=== PATIENT | female | born 1950 | race Caucasian/White ===

== ENCOUNTER 2017-09-01 07:11 | Day surgery (SDC) | payer MEDICARE, OTHER ==
[2017-08-30 10:21] VITALS: BMI 32.3
[~2017-09-01 07:11] MED LIST: LACTATED RINGERS 1,000 ML IV SCH; LIDOCAINE 1% 20 ML VIAL (10MG/ML) FOR IV START INTRADERMA PRN
[2017-09-01 07:39] VITALS: RESP 18; TEMP 97.8
[2017-09-01] MEDS ORDERED: LACTATED RINGERS 1,000 ML IV ONE (07:39)
[2017-09-01 07:52] LABS: Glucose,Whole Blood 95 mg/dL (75-99)
[2017-09-01] MEDS ORDERED: PROPOFOL 10 MG/ML 20 ML VIAL IV ONE (08:34)
[2017-09-01 09:15] VITALS: BP 135/90; PULSE 67
--- NOTE | 2017-09-01 09:47 | P.PCN ---
Date of Procedure: 09/01/17 Procedure(s) Performed: BRIEF HISTORY: Patient is a 67-year-old, pleasant, white female, scheduled for an upper endoscopy as a part of value should of intermittent dysphagia to solids for the last several months duration. She is hence scheduled for an upper endoscopy with possible dilation. PROCEDURE PERFORMED: Esophagogastroduodenoscopy with biopsy. PREOPERATIVE DIAGNOSIS: Intermittent dysphagia to solids for several months duration. IV sedation per anesthesia. PROCEDURE: After informed consent was obtained, the patient was brought into the endoscopy unit. IV sedation was administered by Anesthesia under continuous monitoring. Initially the Olympus GIF-140 video endoscope was inserted into the mouth. Esophagus intubated without any difficulty. It was gradually advanced into the stomach and duodenum and carefully examined. The bulb and the second part of the duodenum appeared normal. The scope at this time was withdrawn to the stomach, adequately insufflated with air, and upon careful examination, mucosa of the antrum, body, cardia and the fundus appeared normal. The scope was then withdrawn into the esophagus. The GE junction was located at 39 cm from the incisors. There were no esophageal sphincter was extremely tight and was evidence of esophageal dysmotility suspicious for esophageal achalasia. Also the esophagus appeared slightly dilated with retained liquid. The mucosa of esophagus appeared normal. These were done from the distal esophagus to rule out esophagitis. There were no erosions or ulcerations seen and the patient tolerated the procedure well. IMPRESSION: 1. Tightness of the lower esophageal sphincter and slightly dilated esophagus with "fluid suspicious for esophageal dysmotilityesophageal achalasia. 2.[ No evidence of esophageal stricture RECOMMENDATIONS: The findings of this examination were discussed with the patient as well as a family. she will be scheduled for an esophageal manometry to evaluate further and she'll be seen in the office in 3-4 weeks..
--- NOTE | 2017-09-05 05:33 | CDI ---
Outpatient Documentation Clarification Form Date: 09/05/2017 CDS/Sugar Reprocess Operator Head Name: Dick Gallegos Phone: If any questions, call Belle Boucher Vending Machine Collector at [phone] Patient Name: Ana Jenkins. Admit Date: 09/01/2017 Discharge Date: 09/01/2017 ATTENTION: The [facility] Coding Staff appreciate your assistance in clarifying documentation. Please respond to the clarification below the line at the bottom and electronically sign. The [facility] Coding staff will review the response and follow-up if needed. Please note: Queries are made part of the Legal Health Record. If you have any questions, please contact the Vending Machine Collector. Dear Dr. Al, Operative notes states Egd with biopsy. In the procedure description there is missing documentation for biopsy performed. Pathology report states Esophagus Biopsy. Kindly add the missing documentation. Request to add addendum Thank you for your kind consideration. MTDD
--- NOTE | 2017-09-13 07:07 | CDI ---
Outpatient Documentation Clarification Form Date: 09/13/2017 CDS/Administrative Dietitian Name: Dick Gallegos Phone: If any questions, call Belle Boucher Hydroelectric Station Chief at [phone] Patient Name: Ana Jenkins. Admit Date: 09/01/2017 Discharge Date: 09/01/2017 ATTENTION: The [facility] Coding Staff appreciate your assistance in clarifying documentation. Please respond to the clarification below the line at the bottom and electronically sign. The [facility] Coding staff will review the response and follow-up if needed. Please note: Queries are made part of the Legal Health Record. If you have any questions, please contact the Hydroelectric Station Chief. Dear Dr. Al, Operative notes states Egd with biopsy. In the procedure description there is missing documentation for biopsy performed. Pathology report states Esophagus Biopsy. Kindly add the missing documentation. Request to add addendum Thank you for your kind consideration. MTDD
--- NOTE | 2017-09-14 10:26 | CDI ---
Outpatient Documentation Clarification Form Date: 09/14/2017 CDS/Smudger Name: Dick Gallegos Phone: If any questions, call Belle Boucher Drapery Examiner at [phone] Patient Name: Ana Jenkins. Admit Date: 09/01/2017 Discharge Date: 09/01/2017 ATTENTION: The [facility] Coding Staff appreciate your assistance in clarifying documentation. Please respond to the clarification below the line at the bottom and electronically sign. The [facility] Coding staff will review the response and follow-up if needed. Please note: Queries are made part of the Legal Health Record. If you have any questions, please contact the Drapery Examiner. Dear Dr. Al, Your Operative note states Egd with biopsy. However, the procedure description does not include that a biopsy was performed. Kindly add the description of how the biopsy was performed in an addendum to Op Note. Thank you for your kind consideration. MTDD
== END 2017-09-01 09:59 | disposition home or self-care (01) ==
LOC: ORWHC2ENDO 07:11
PROVIDERS: ATTEND Internal Medicine Gastroenterology
DX: K22.4 Dyskinesia of esophagus (principal); I10 Essential (primary) hypertension; E27.1 Primary adrenocortical insufficiency; E11.9 Type 2 diabetes mellitus without complications; Z88.0 Allergy status to penicillin; Z88.1 Allergy status to other antibiotic agents; Z91.048 Other nonmedicinal substance allergy status; Z79.1 Long term (current) use of non-steroidal anti-inflammatories (NSAID); Z79.899 Other long term (current) drug therapy; K22.8 Other specified diseases of esophagus
CPT/HCPCS: 88305; 43239; J2704

== ENCOUNTER → 2017-09-13 | Day surgery (SDC) | payer MEDICARE, OTHER ==
[2017-09-11 14:25] VITALS: BMI 32.3
[2017-09-13 15:09] VITALS: BP 146/64; PULSE 62; RESP 16; TEMP 98.7
--- NOTE | 2017-09-27 14:00 | PCN ---
PROCEDURE NOTE DATE OF PROCEDURE: 09/13/2017 PROCEDURE PERFORMED: Esophageal manometry. PREOPERATIVE DIAGNOSIS: Intermittent dysphagia to solids and passive regurgitation of several years duration. Questionable history of a relative dysmotility, diagnosed many years ago. BRIEF HISTORY: Patient is a 67-year-old pleasant white female, scheduled for esophageal manometry as a part of evaluation of intermittent dysphagia to solids for the last several years' duration. She lately has been complaining of severe passive regurgitation and dysphagia to liquids as well as solids and occasionally to saliva also. She recently had an upper endoscopy done on August of 2017, which revealed slightly dilated esophagus with retained liquid and tight lower esophageal sphincter suspicious for esophageal achalasia. She is hence scheduled for an esophageal manometry to evaluate further. PROCEDURE PERFORMED: A resolution impedance esophageal manometry. PROCEDURE: After informed consent was obtained from the patient, she was brought into the endoscopy unit when esophageal manometry catheter was passed through the sternal ostium and was gently advanced into the esophagus and stomach and the study was performed. The following are the results using Castor classification: 1. Integral residual pressure (IRP) 42 mmHg, mean residual pressure 26 mmHg. 2. Lower esophageal body, mean DCI 885 mmHg. Peristalsis 0%, bolus transit 0%. There was evidence isometric contractions noted during all swallows throughout the study. 3. Upper esophageal sphincter, was not assessed. INTERPRETATION: The above esophageal manometry study shows increased mean integral residual pressure with evidence of aperistalsis, all of which are consistent with esophageal achalasia. Also, there is evidence of isometric contractions noted for almost every swallow during the entire study. 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 MMODL / IJN: [id number] /
== END ==
LOC: ORWHC2ENDO 14:49
PROVIDERS: ATTEND Internal Medicine Gastroenterology
DX: K22.0 Achalasia of cardia (principal)
CPT/HCPCS: 91010

== ENCOUNTER 2017-11-15 03:31 | Inpatient (IN) | payer MEDICARE, OTHER ==
[2017-11-15 03:50] LABS: Glucose,Whole Blood 167 mg/dL (75-99)
[2017-11-15] MEDS ORDERED: MORPHINE SULFATE 4 MG/ML SYRINGE IV STA (03:58)
[2017-11-15] MEDS ORDERED: SODIUM CHLORIDE 0.9% 500 ML IV STA (03:58)
--- NOTE | 2017-11-15 04:03 | ED ---
Nausea/Vomiting/Diarrhea HPI - General Chief complaint: Nausea/Vomiting/Diarrhea Stated complaint: abd pain Time Seen by Provider: 11/15/17 03:37 Source: patient, EMS Mode of arrival: EMS Limitations: physical limitation - History of Present Illness Initial comments: This patient is a 67-year-old woman who presents with diffuse abdominal pain as well as nausea and vomiting. She states that the first symptoms start was the nausea and vomiting which came on around 9 PM. At the time she was just sitting and watching television. When the symptoms continued this morning she decided to be evaluated. MD complaint: nausea, vomiting, abdominal pain Onset/Timin -: hour(s) Description of Vomiting: food contents, bilious Associated Abdominal Pain: Yes Location: diffuse Radiation: other (back) Severity: severe Quality: aching Consistency: constant Improves with: none Worsens with: none Associated Symptoms: denies other symptoms - Related Data Home Medications Medication Instructions Recorded Confirmed Cholecalciferol [Vitamin D3] 1,000 unit PO DAILY 08/30/17 09/11/17 Cortisone Acetate [Cortone] 12.5 mg PO HS 08/30/17 09/11/17 Cortisone Acetate [Cortone] 25 mg PO BID 08/30/17 09/11/17 Dicyclomine [Bentyl] 10 mg PO DAILY PRN 08/30/17 09/13/17 Diphenox-Atrop 2.5-0.025 mg 3 each PO QID PRN 08/30/17 09/13/17 [Lomotil] Fexofenadine HCl 60 mg PO DAILY 08/30/17 09/11/17 Fludrocortisone [Florinef] 0.1 mg PO DAILY 08/30/17 09/11/17 Fluticasone Propionate [Flovent 2 puff INHALATION DAILY PRN 08/30/17 09/13/17 Hfa 110mcg] Levothyroxine Sodium [Levoxyl] 200 mcg PO DAILY 08/30/17 09/11/17 Meloxicam [Mobic] 7.5 mg PO DAILY 08/30/17 09/11/17 Metoprolol Tartrate [Lopressor] 100 mg PO DAILY 08/30/17 09/11/17 Prasterone (Dhea) [Dhea 25] 25 mg PO WE 08/30/17 09/11/17 Solumedrol 40 mg INJ DAILY PRN 08/30/17 09/13/17 Trimethobenzamide [Tigan] 300 mg PO DAILY PRN 08/30/17 09/13/17 tiZANidine HCL 2 mg PO HS 08/30/17 09/11/17 traZODone HCL [TraZODone HCl] 50 g PO HS 08/30/17 09/11/17 Allergies Allergy/AdvReac Type Severity Reaction Status Date / Time Penicillins Allergy Anaphylaxis Verified 09/13/17 14:59 adhesive tape AdvReac Rash/Hives Verified 09/13/17 14:59 cephalexin [From Keflex] AdvReac Nausea & Verified 09/13/17 14:59 Vomiting erythromycin base AdvReac Nausea & Verified 09/13/17 14:59 Vomiting Tetracyclines AdvReac Nausea & Verified 09/13/17 14:59 Vomiting Review of Systems ROS Statement: Those systems with pertinent positive or pertinent negative responses have been documented in the HPI. ROS Other: All systems not noted in ROS Statement are negative. Constitutional: Denies: fever, chills Respiratory: Denies: cough, dyspnea Cardiovascular: Denies: chest pain, palpitations, edema Gastrointestinal: Reports: abdominal pain, nausea, vomiting. Denies: hematemesis, melena, hematochezia Genitourinary: Denies: dysuria, hematuria Musculoskeletal: Reports: back pain Skin: Denies: rash Neurological: Denies: headache, weakness, numbness Past Medical History Past Medical History: Cancer, Diabetes Mellitus, Hypertension, Thyroid Disorder Additional Past Medical History / Comment(s): NE'S DISEASE. SKIN CANCER History of Any Multi-Drug Resistant Organisms: None Reported Past Surgical History: Adenoidectomy, Back Surgery, Cholecystectomy, Hysterectomy, Joint Replacement, Tonsillectomy Additional Past Surgical History / Comment(s): LT TOTAL KNEE. SCREWS IN BOTH FEET. BACK SURGERY X 2. COLONOSCOPY, EGD. BILAT CATARACT SX Past Anesthesia/Blood Transfusion Reactions: Previous Problems w/ Anesthesia, Motion Sickness Additional Past Anesthesia/Blood Transfusion Reaction / Comment(s): "FELT LIKE i WAS CLIMBING [place] AFTER ANESTHESIA IN [place]" Past Psychological History: Anxiety, Depression Smoking Status: Never smoker Past Alcohol Use History: None Reported Past Drug Use History: None Reported - Past Family History Mother Family Medical History: No Reported History General Exam Limitations: physical limitation General appearance: alert, obese Head exam: Present: atraumatic, normocephalic Eye exam: Present: normal appearance. Absent: scleral icterus, conjunctival injection ENT exam: Present: mucous membranes dry Respiratory exam: Present: normal lung sounds bilaterally. Absent: respiratory distress, wheezes, rales, rhonchi, stridor Cardiovascular Exam: Present: regular rate, normal rhythm, normal heart sounds. Absent: systolic murmur, diastolic murmur, rubs, gallop GI/Abdominal exam: Present: soft, tenderness (Diffuse). Absent: distended, guarding, rebound, rigid, mass, pulsatile mass Extremities exam: Present: normal inspection, normal capillary refill. Absent: pedal edema, calf tenderness Back exam: Absent: CVA tenderness (R), CVA tenderness (L) Skin exam: Present: warm, dry, intact, normal color. Absent: rash Course Vital Signs 11/15/17 11/15/17 11/15/17 03:43 04:09 05:43 Temperature 98.3 F Pulse Rate 67 73 78 Respiratory 17 16 Rate Blood Pressure 145/105 173/77 146/79 O2 Sat by Pulse 100 95 Oximetry Medical Decision Making - Medical Decision Making Case discussed with Dr. Vallejo the surgeon on-call who states she will come and see the patient. Her other treatment recommendations incorporated. - Lab Data Result diagrams: 11/15/17 03:40 11/15/17 03:40 Lab Results 11/15/17 11/15/17 11/15/17 Range/Units 03:36 03:40 03:40 WBC 24.0 H (3.8-10.6) k/uL RBC 6.08 H (3.80-5.40) m/uL Hgb 18.2 H (11.4-16.0) gm/dL Hct 56.5 H (34.0-46.0) % MCV 93.0 (80.0-100.0) fL MCH 29.9 (25.0-35.0) pg MCHC 32.2 (31.0-37.0) g/dL RDW 14.3 (11.5-15.5) % Plt Count 330 (150-450) k/uL Neutrophils % 90 % Lymphocytes % 6 % Monocytes % 3 % Eosinophils % 1 % Basophils % 0 % Neutrophils # 21.6 H (1.3-7.7) k/uL Lymphocytes # 1.4 (1.0-4.8) k/uL Monocytes # 0.7 (0-1.0) k/uL Eosinophils # 0.2 (0-0.7) k/uL Basophils # 0.0 (0-0.2) k/uL Manual Slide Review Performed Large Platelets Present Sodium 139 (137-145) mmol/L Potassium 5.2 H (3.5-5.1) mmol/L Chloride 105 (98-107) mmol/L Carbon Dioxide 24 (22-30) mmol/L Anion Gap 10 mmol/L BUN 15 (7-17) mg/dL Creatinine 0.70 (0.52-1.04) mg/dL Est GFR (CKD-EPI)AfAm >90 (>60 ml/min/1.73 sqM) Est GFR (CKD-EPI)NonAf 89 (>60 ml/min/1.73 sqM) Glucose 206 H (74-99) mg/dL POC Glucose (mg/dL) 167 H (75-99) mg/dL POC Glu Dairy Farmer ID Jasmyn Ponce Plasma Lactic Acid [place] (0.7-2.0) mmol/L Calcium 10.1 (8.4-10.2) mg/dL Total Bilirubin 1.0 (0.2-1.3) mg/dL AST 25 (14-36) U/L ALT 22 (9-52) U/L Alkaline Phosphatase 77 (38-126) U/L Total Protein 6.7 (6.3-8.2) g/dL Albumin 4.2 (3.5-5.0) g/dL Amylase 58 (30-110) U/L Lipase 41 (23-300) U/L Urine Color Urine Appearance (Clear) Urine pH (5.0-8.0) Ur Specific [place] (1.001-1.035) Urine Protein (Negative) Urine Glucose (UA) (Negative) Urine Ketones (Negative) Urine Blood (Negative) Urine Nitrite (Negative) Urine Bilirubin (Negative) Urine Urobilinogen (<2.0) mg/dL Ur Leukocyte Esterase (Negative) Urine RBC (0-5) /hpf Urine WBC (0-5) /hpf Ur Squamous Epith Cells (0-4) /hpf Urine Bacteria (None) /hpf Hyaline Casts (0-2) /lpf Urine Mucus (None) /hpf 11/15/17 11/15/17 Range/Units 03:40 05:41 WBC (3.8-10.6) k/uL RBC (3.80-5.40) m/uL Hgb (11.4-16.0) gm/dL Hct (34.0-46.0) % MCV (80.0-100.0) fL MCH (25.0-35.0) pg MCHC (31.0-37.0) g/dL RDW (11.5-15.5) % Plt Count (150-450) k/uL Neutrophils % % Lymphocytes % % Monocytes % % Eosinophils % % Basophils % % Neutrophils # (1.3-7.7) k/uL Lymphocytes # (1.0-4.8) k/uL Monocytes # (0-1.0) k/uL Eosinophils # (0-0.7) k/uL Basophils # (0-0.2) k/uL Manual Slide Review Large Platelets Sodium (137-145) mmol/L Potassium (3.5-5.1) mmol/L Chloride (98-107) mmol/L Carbon Dioxide (22-30) mmol/L Anion Gap mmol/L BUN (7-17) mg/dL Creatinine (0.52-1.04) mg/dL Est GFR (CKD-EPI)AfAm (>60 ml/min/1.73 sqM) Est GFR (CKD-EPI)NonAf (>60 ml/min/1.73 sqM) Glucose (74-99) mg/dL POC Glucose (mg/dL) (75-99) mg/dL POC Glu Dairy Farmer ID Plasma Lactic Acid [place] 3.5 H* (0.7-2.0) mmol/L Calcium (8.4-10.2) mg/dL Total Bilirubin (0.2-1.3) mg/dL AST (14-36) U/L ALT (9-52) U/L Alkaline Phosphatase (38-126) U/L Total Protein (6.3-8.2) g/dL Albumin (3.5-5.0) g/dL Amylase (30-110) U/L Lipase (23-300) U/L Urine Color Yellow Urine Appearance Cloudy H (Clear) Urine pH 5.0 (5.0-8.0) Ur Specific [place] 1.017 (1.001-1.035) Urine Protein Trace H (Negative) Urine Glucose (UA) Negative (Negative) Urine Ketones 1+ H (Negative) Urine Blood Trace H (Negative) Urine Nitrite Negative (Negative) Urine Bilirubin Negative (Negative) Urine Urobilinogen <2.0 (<2.0) mg/dL Ur Leukocyte Esterase Large H (Negative) Urine RBC 2 (0-5) /hpf Urine WBC 19 H (0-5) /hpf Ur Squamous Epith Cells 4 (0-4) /hpf Urine Bacteria Rare H (None) /hpf Hyaline Casts 13 H (0-2) /lpf Urine Mucus Moderate H (None) /hpf - EKG Data -: EKG Interpreted by Me EKG shows normal: sinus rhythm, axis (Normal), intervals (Normal), QRS complexes (Normal), ST-T waves (Normal) Rate: normal (Rate 94 bpm) Interpretation: other (Possible old inferior infarct.) Disposition Clinical Impression: Abdominal pain, Volvulus Disposition: ADMITTED IP TO THIS [facility] Condition: Serious Referrals: Nonstaff,Physician [Primary Care Provider] - 1-2 days
[2017-11-15] MEDS: ONDANSETRON 4 MG/2 ML VIAL IVP STA ×2 (04:08→07:49)
[2017-11-15 04:54] LABS: Basophils % (A) 0 %; Eosinophils # (A) 0.2 k/uL (0-0.7); Eosinophils % (A) 1 %; HGB 18.2 gm/dL (11.4-16.0); Lymphocytes # (A) 1.4 k/uL (1.0-4.8); Lymphocytes % (A) 6 %; MCH 29.9 pg (25.0-35.0); MCHC 32.2 g/dL (31.0-37.0); Mean Platelet Volume 10.1; Monocytes # (A) 0.7 k/uL (0-1.0); Monocytes % (A) 3 %; Neutrophils # (A) 21.6 k/uL (1.3-7.7); Neutrophils % (A) 90 %; Platelet Count 330 k/uL (150-450); RBC 6.08 m/uL (3.80-5.40); RDW 14.3 % (11.5-15.5)
[2017-11-15 04:58] LABS: HCT 56.5 % (34.0-46.0)
[2017-11-15 05:03] LABS: Albumin 4.2 g/dL (3.5-5.0); Amylase 58 U/L (30-110); Anion Gap 10 mmol/L; Calcium 10.1 mg/dL (8.4-10.2); Carbon Dioxide 24 mmol/L (22-30); Chloride 105 mmol/L (98-107); Glucose 206 mg/dL (74-99); Lipase 41 U/L (23-300); Sodium 139 mmol/L (137-145); Total Protein 6.7 g/dL (6.3-8.2)
[2017-11-15 05:11] LABS: ALT 22 U/L (9-52); AST 25 U/L (14-36); Alkaline Phosphatase 77 U/L (38-126); Blood Urea Nitrogen 15 mg/dL (7-17); Potassium 5.2 mmol/L (3.5-5.1)
[2017-11-15 05:14] LABS: Large Platelets Present
--- NOTE | 2017-11-15 05:47 | CT ---
EXAM: CT Abdomen and Pelvis Without Intravenous Contrast CLINICAL HISTORY: ITS.REASON CT Reason: Pain TECHNIQUE: Axial computed tomography images of the abdomen and pelvis without intravenous contrast. DLP is 1202.9 mGy-cm. This CT exam was performed using one or more of the following dose reduction techniques: automated exposure control, adjustment of the mA and/or kV according to patient size, and/or use of iterative reconstruction technique. COMPARISON: No relevant prior studies available. FINDINGS: There are findings compatible with closed loop small bowel obstruction. There is a radial ray of small bowel loops in the mid to lower abdomen and pelvis with mesenteric vessels converging into central point. Example image 37/6. There is free fluid along and mesenteric/interloop edema. Cardiomegaly. Suspected atelectasis at lung bases. Small hiatal hernia. There is some fluid in the esophagus may represent reflux. Cholecystectomy. Diverticulosis. Allowing for free fluid, no definite diverticulitis. Visualized appendix unremarkable. Free fluid herniates out inguinal regions. Osseous degenerative changes. Postop changes spine. IMPRESSION: There are findings compatible with closed loop small bowel obstruction. There is a radial ray of small bowel loops in the mid to lower abdomen and pelvis with mesenteric vessels converging into central point. Example image 37/6. There is free fluid along and mesenteric/interloop edema. Emergent surgical consultation recommended. Incidental findings, as discussed above. Critical Value Communications 11/15/17 05:40 Call Doctor Regarding Above results, called on 11/15 05:40 (-04:00)
[2017-11-15] MEDS ORDERED: ONDANSETRON 4 MG/2 ML VIAL IVP STA (05:49)
[2017-11-15 06:00] LABS: Appearance,Urine Cloudy (Clear); Bacteria,Urine Rare /hpf; Bilirubin,Urine Negative (Negative); Blood,Urine Trace (Negative); Color,Urine Yellow; Glucose,Urine (UA) Negative (Negative); Hyaline Casts,Urine 13 /lpf (0-2); Ketones,Urine 1+ (Negative); Leukocyte Esterase,Urine Large (Negative); Mucus,Urine Moderate /hpf; Nitrite,Urine Negative (Negative); Protein,Urine Trace (Negative); RBC,Urine 2 /hpf (0-5); Specific Gravity,Urine 1.017 (1.001-1.035); Squamous Epithelial Cell,Urine 4 /hpf (0-4); Urobilinogen,Urine <2.0 mg/dL (<2.0); WBC,Urine 19 /hpf (0-5)
[2017-11-15] MEDS ORDERED: SODIUM CHLORIDE 0.9% 2,500 ML IV ONE (06:10)
[2017-11-15] MEDS ORDERED: LEVOFLOXACIN 750MG-D5W PMX 750 MG in DEXTROSE/WATER 1 150ML.BAG IVPB STA (06:10)
--- NOTE | 2017-11-15 06:53 | P.GSHP ---
History of Present Illness H&P Date: 11/15/17 Chief Complaint: Abdominal pain, nausea and vomiting The patient is a 67 year old female who began having pain about 9:00 yesterday evening. She had had some diarrhea earlier in the day and took Imodium. She's had problems with diarrhea intermittently in the past and has seen Dr. Al for this. The pain persisted all night and she was having nausea and vomiting so came into the emergency department. Computed tomography scan shows a small bowel volvulus. She has had previous abdominal surgeries. She's never had bowel obstruction in the past. - Review of Systems All systems: negative - Genitourinary (Female) Comment: Treated for urinary tract infection, started antibiotics last Past Medical History Past Medical History: Cancer, Diabetes Mellitus, Hypertension, Thyroid Disorder Additional Past Medical History / Comment(s): NE'S DISEASE. Valvular heart disease. SKIN CANCER History of Any Multi-Drug Resistant Organisms: None Reported Past Surgical History: Adenoidectomy, Back Surgery, Cholecystectomy, Hysterectomy, Joint Replacement, Tonsillectomy Additional Past Surgical History / Comment(s): LT TOTAL KNEE. SCREWS IN BOTH FEET. BACK SURGERY X 2. COLONOSCOPY, EGD. BILAT CATARACT SX Past Anesthesia/Blood Transfusion Reactions: Previous Problems w/ Anesthesia, Motion Sickness Additional Past Anesthesia/Blood Transfusion Reaction / Comment(s): "FELT LIKE i WAS CLIMBING [place] AFTER ANESTHESIA IN [place]" Past Psychological History: Anxiety, Depression Smoking Status: Never smoker Past Alcohol Use History: None Reported Past Drug Use History: None Reported - Past Family History Mother Family Medical History: No Reported History Medications and Allergies Home Medications Medication Instructions Recorded Confirmed Type Cholecalciferol [Vitamin D3] 1,000 unit PO DAILY 08/30/17 09/11/17 History Cortisone Acetate [Cortone] 12.5 mg PO HS 08/30/17 09/11/17 History Cortisone Acetate [Cortone] 25 mg PO BID 08/30/17 09/11/17 History Dicyclomine [Bentyl] 10 mg PO DAILY PRN 08/30/17 09/13/17 History Diphenox-Atrop 2.5-0.025 mg 3 each PO QID PRN 08/30/17 09/13/17 History [Lomotil] Fexofenadine HCl 60 mg PO DAILY 08/30/17 09/11/17 History Fludrocortisone [Florinef] 0.1 mg PO DAILY 08/30/17 09/11/17 History Fluticasone Propionate [Flovent 2 puff INHALATION DAILY PRN 08/30/17 09/13/17 History Hfa 110mcg] Levothyroxine Sodium [Levoxyl] 200 mcg PO DAILY 08/30/17 09/11/17 History Meloxicam [Mobic] 7.5 mg PO DAILY 08/30/17 09/11/17 History Metoprolol Tartrate [Lopressor] 100 mg PO DAILY 08/30/17 09/11/17 History Prasterone (Dhea) [Dhea 25] 25 mg PO WE 08/30/17 09/11/17 History Solumedrol 40 mg INJ DAILY PRN 08/30/17 09/13/17 History Trimethobenzamide [Tigan] 300 mg PO DAILY PRN 08/30/17 09/13/17 History tiZANidine HCL 2 mg PO HS 08/30/17 09/11/17 History traZODone HCL [TraZODone HCl] 50 g PO HS 08/30/17 09/11/17 History Allergies Allergy/AdvReac Type Severity Reaction Status Date / Time Penicillins Allergy Anaphylaxis Verified 09/13/17 14:59 adhesive tape AdvReac Rash/Hives Verified 09/13/17 14:59 cephalexin [From Keflex] AdvReac Nausea & Verified 09/13/17 14:59 Vomiting erythromycin base AdvReac Nausea & Verified 09/13/17 14:59 Vomiting Tetracyclines AdvReac Nausea & Verified 09/13/17 14:59 Vomiting Surgical - Exam Osteopathic Statement: *. No significant issues noted on an osteopathic structural exam other than those noted in the History and Physical/Consult. Vital Signs Temp Pulse Resp BP Pulse Ox 98.3 F 67 17 145/105 100 11/15/17 03:43 11/15/17 03:43 11/15/17 03:43 11/15/17 03:43 11/15/17 03:43 - General well developed, well nourished, no distress - Eyes normal ocular movement - ENT normal mucosa - Neck trachea midline - Respiratory normal expansion, normal respiratory effort, clear to auscultation - Cardiovascular Rhythm: regular - Abdomen Abdomen: soft, tender (Diffuse tenderness), bowel sounds (Hypoactive) Results - Labs 11/15/17 03:40 11/15/17 03:40 Abnormal Lab Results - Last 24 Hours (Table) 11/15/17 11/15/17 11/15/17 Range/Units 03:36 03:40 03:40 WBC 24.0 H (3.8-10.6) k/uL RBC 6.08 H (3.80-5.40) m/uL Hgb 18.2 H (11.4-16.0) gm/dL Hct 56.5 H (34.0-46.0) % Neutrophils # 21.6 H (1.3-7.7) k/uL Potassium 5.2 H (3.5-5.1) mmol/L Glucose 206 H (74-99) mg/dL POC Glucose (mg/dL) 167 H (75-99) mg/dL Plasma Lactic Acid Homer (0.7-2.0) mmol/L Urine Appearance (Clear) Urine Protein (Negative) Urine Ketones (Negative) Urine Blood (Negative) Ur Leukocyte Esterase (Negative) Urine WBC (0-5) /hpf Urine Bacteria (None) /hpf Hyaline Casts (0-2) /lpf Urine Mucus (None) /hpf 11/15/17 11/15/17 Range/Units 03:40 05:41 WBC (3.8-10.6) k/uL RBC (3.80-5.40) m/uL Hgb (11.4-16.0) gm/dL Hct (34.0-46.0) % Neutrophils # (1.3-7.7) k/uL Potassium (3.5-5.1) mmol/L Glucose (74-99) mg/dL POC Glucose (mg/dL) (75-99) mg/dL Plasma Lactic Acid Homer 3.5 H* (0.7-2.0) mmol/L Urine Appearance Cloudy H (Clear) Urine Protein Trace H (Negative) Urine Ketones 1+ H (Negative) Urine Blood Trace H (Negative) Ur Leukocyte Esterase Large H (Negative) Urine WBC 19 H (0-5) /hpf Urine Bacteria Rare H (None) /hpf Hyaline Casts 13 H (0-2) /lpf Urine Mucus Moderate H (None) /hpf Diabetes panel 11/15/17 Range/Units 03:40 Sodium 139 (137-145) mmol/L Potassium 5.2 H (3.5-5.1) mmol/L Chloride 105 (98-107) mmol/L Carbon Dioxide 24 (22-30) mmol/L BUN 15 (7-17) mg/dL Creatinine 0.70 (0.52-1.04) mg/dL Glucose 206 H (74-99) mg/dL Calcium 10.1 (8.4-10.2) mg/dL AST 25 (14-36) U/L ALT 22 (9-52) U/L Alkaline Phosphatase 77 (38-126) U/L Total Protein 6.7 (6.3-8.2) g/dL Albumin 4.2 (3.5-5.0) g/dL Calcium panel 11/15/17 Range/Units 03:40 Calcium 10.1 (8.4-10.2) mg/dL Albumin 4.2 (3.5-5.0) g/dL Pituitary panel 11/15/17 Range/Units 03:40 Sodium 139 (137-145) mmol/L Potassium 5.2 H (3.5-5.1) mmol/L Chloride 105 (98-107) mmol/L Carbon Dioxide 24 (22-30) mmol/L BUN 15 (7-17) mg/dL Creatinine 0.70 (0.52-1.04) mg/dL Glucose 206 H (74-99) mg/dL Calcium 10.1 (8.4-10.2) mg/dL Adrenal panel 11/15/17 Range/Units 03:40 Sodium 139 (137-145) mmol/L Potassium 5.2 H (3.5-5.1) mmol/L Chloride 105 (98-107) mmol/L Carbon Dioxide 24 (22-30) mmol/L BUN 15 (7-17) mg/dL Creatinine 0.70 (0.52-1.04) mg/dL Glucose 206 H (74-99) mg/dL Calcium 10.1 (8.4-10.2) mg/dL Total Bilirubin 1.0 (0.2-1.3) mg/dL AST 25 (14-36) U/L ALT 22 (9-52) U/L Alkaline Phosphatase 77 (38-126) U/L Total Protein 6.7 (6.3-8.2) g/dL Albumin 4.2 (3.5-5.0) g/dL - Imaging CT scan - abdomen: report reviewed, image reviewed Assessment and Plan (1) Small bowel volvulus Current Visit: Yes Status: Acute Code(s): K56.2 - VOLVULUS SNOMED Code(s) : 824288746 (2) Addisons disease Current Visit: Yes Status: Acute Code(s): E27.1 - PRIMARY ADRENOCORTICAL INSUFFICIENCY SNOMED Code(s): 296712177 (3) Valvular heart disease Current Visit: Yes Status: Acute Code(s): I38 - ENDOCARDITIS, VALVE UNSPECIFIED SNOMED Code(s): 907623 (4) Achalasia Current Visit: Yes Status: Acute Code(s): K22.0 - ACHALASIA OF CARDIA SNOMED Code(s): 70328732 (5) Hypertension Current Visit: Yes Status: Acute Code(s): I10 - ESSENTIAL (PRIMARY) HYPERTENSION SNOMED Code(s): 71043883 Plan: The patient will need to go to the OR for an emergency laparotomy. Explained that possibly she'll need a small bowel resection. Particularly in light of the leukocytosis and lactic acidosis. Procedure risks and complications were discussed along with the usual postoperative course. She'll need additional steroids in the perioperative period. Prophylactic antibiotics. DVT and ulcer prophylaxis. Medical consult. Further recommendations to follow.
[2017-11-15] MEDS ORDERED: IV FLUID CONTINUATION 1,000 ML IV ONE (07:36)
[2017-11-15] MEDS ORDERED: DEXAMETHASONE SOD PHOSPHATE 10 MG/ML 1 ML VIAL IV ONE (07:49)
[2017-11-15] MEDS ORDERED: methylPREDNISolone SOD SUCCI 125 MG/2 ML VIAL ONE (07:56)
[2017-11-15] MEDS ORDERED: fentaNYL (PF) 50 MCG/ML 2 ML AMP ONE (07:56)
[2017-11-15] MEDS ORDERED: LIDOCAINE 1% INJ 10MG/ML (20 ML MDV) ONE (07:56)
[2017-11-15] MEDS ORDERED: SUCCINYLCHOLINE CHLORIDE 100 MG/5 ML SYR IV ONE (07:56)
[2017-11-15] MEDS ORDERED: PHENYLEPHRINE-0.9% NACL SYG 1 MG/10 ML SYRINGE ONE (07:56)
[2017-11-15] MEDS ORDERED: GLYCOPYRROLATE 0.2 MG/ML 2 ML VIAL ONE (07:56)
[2017-11-15] MEDS ORDERED: MIDAZOLAM 2 MG/2 ML VIAL ONE (07:56)
[2017-11-15] MEDS ORDERED: ROCURONIUM BROMIDE 10 MG/ML 10 ML VIAL IV ONE (07:56)
[2017-11-15] MEDS ORDERED: NEOSTIGMINE 1 MG/ML 10 ML VIAL ONE (07:56)
[2017-11-15] MEDS ORDERED: PROPOFOL 10 MG/ML 20 ML VIAL IV ONE (07:56)
[2017-11-15] MEDS ORDERED: ceFAZolin 1,000 MG VIAL IVPB ONE (08:10)
[2017-11-15] MEDS ORDERED: LACTATED RINGERS 1,000 ML IV ONE (08:22)
[2017-11-15] MEDS ORDERED: SODIUM CHLORIDE 0.9% 1,000 ML IV ONE (08:22)
[2017-11-15] MEDS ORDERED: NALOXONE 0.4 MG/ML 1 ML VIAL IV PRN (08:55)
[2017-11-15] MEDS ORDERED: HYDROmorphone 1 MG/ML 1 ML SYRINGE IVP PRN (08:55)
--- NOTE | 2017-11-15 08:55 | P.OP ---
Date of Procedure: 11/15/17 Preoperative Diagnosis: Small bowel volvulus Postoperative Diagnosis: Small bowel volvulus with necrotic bowel Procedure(s) Performed: Exploratory laparotomy with segmental small bowel resection Anesthesia: MICHELLE Surgeon: Kiki Vallejo Estimated Blood Loss (ml): 100 Pathology: other (Small bowel) Condition: stable Disposition: PACU Indications for Procedure: The patient presented with abdominal pain, nausea and vomiting. CT showed a small bowel volvulus Description of Procedure: The patient's taken the operative suite where she is prepped and draped in usual sterile manner under general endotracheal anesthetic abdomen is entered through a midline incision. Small bleeding points were controlled with electrocautery. She has a lot of inflammatory fluid present, at least 750 MLS. There is a large section of small bowel which appears necrotic and nonviable. No obvious perforation. There is a band of adhesion which is rising the volvulus. It is lysed. The small bowel is then able to be brought up through and there is a long segment which is nonviable. Sites are chosen proximally and distally to this which are viable and showed good peristalsis. A small opening was made in the mesentery on each side TRACY stapler was placed and fired. The mesentery was then taken down with larger vessels are clamped and tied with 0 Vicryl sutures. The antimesenteric borders of the small bowel were then brought together. A small enterotomy is made in each limb of the bowel. A TRACY stapler was placed and fired along the antimesenteric border. It appears to be hemostatic. The remaining defect is closed with a stapler. 3-0 Vicryl Lembert sutures are used to reinforce. The mesentery is then closed with 3-0 Vicryl. Gloves were changed. The abdomen was irrigated and aspirated. It was examined. There is an area sigmoid colon which feels thicker. This may have been on the basis of previous diverticulitis. We'll discuss colonoscopy or time. The small bowel was then allowed to lay in gentle loops and covered with the omentum. The fashion peritoneum were closed with 1 PDS. Skin was closed with helena. She tolerated the procedure without difficulty was taken recovery room in satisfactory condition. According to or personnel, all counts are correct.
[2017-11-15] MEDS ORDERED: D5-0.45% NACL WITH KCL 20MEQ/L 1,000 ML IV SCH (09:00)
[2017-11-15] MEDS: HYDROmorphone 1 MG/ML 1 ML SYRINGE IVP ONE ×2 (09:20→09:38)
[2017-11-15 11:55] VITALS: BMI 32.3
[2017-11-15 11:56] LABS: Glucose,Whole Blood 233 mg/dL (75-99)
[2017-11-15] MEDS ORDERED: ENALAPRILAT 1.25 MG/ML 1 ML VIAL IVP PRN (12:15)
[2017-11-15] MEDS ORDERED: FLUTICASONE 110 MCG INHALER INHALATION PRN (12:21)
[2017-11-15] MEDS ORDERED: IPRATROPIUM-ALBUTEROL 3 ML NEB INHALATION PRN (12:23)
--- NOTE | 2017-11-15 12:24 | P.CONS ---
History of Present Illness - Reason for Consult Consult date: 11/15/17 Medical management - History of Present Illness This is a 67-year-old female patient of Dr. Stevenson Lewis with past medical history of skin cancer, diabetes mellitus type 2, hypertension, Mohave' s disease, vitamin D deficiency, hypothyroidism, generalized anxiety disorder, recurrent depression. Patient states that she had developed abdominal pain and has no history of bowel obstruction in the past and no abdominal surgeries. She had diarrhea earlier in the day and took Imodium. By nighttime she developed nausea and vomiting and came into [facility] emergency center for evaluation. She underwent a CAT scan of the abdomen and pelvis which revealed a closed loop small bowel obstruction. Radial rate of small bowel loops in the mid to lower abdomen and pelvis with mesenteric vessels converging into [place]. Free fluid along the mesenteric interloop edema. Patient went to the OR with Dr. Vallejo and underwent exploratory laparotomy with segmental small bowel resection. Patient seen in the recovery room. Review of Systems All systems: negative Constitutional: Reports poor appetite, Denies chills, Denies fatigue, Denies fever, Denies sweats, Denies weakness Eyes: denies blurred vision, denies pain Ears, nose, mouth and throat: Denies headache, Denies sore throat Cardiovascular: Denies chest pain, Denies decreased exercise tolerance, Denies dyspnea on exertion, Denies edema, Denies leg edema, Denies lightheadedness, Denies shortness of breath, Denies syncope Respiratory: Denies cough, Denies cough with sputum, Denies dyspnea, Denies excessive sputum, Denies hemoptysis, Denies home oxygen, Denies wheezing Gastrointestinal: Reports abdominal pain, Reports diarrhea, Reports loss of appetite, Reports nausea, Reports vomiting Genitourinary: Denies dysuria, Denies hematuria Musculoskeletal: Denies myalgias Integumentary: Denies pruritus, Denies rash Neurological: Denies numbness, Denies weakness Psychiatric: Denies anxiety, Denies depression Endocrine: Denies fatigue, Denies weight change Past Medical History Past Medical History: Cancer, Diabetes Mellitus, Hypertension, Thyroid Disorder Additional Past Medical History / Comment(s): NE'S DISEASE. Valvular heart disease. SKIN CANCER History of Any Multi-Drug Resistant Organisms: None Reported Past Surgical History: Adenoidectomy, Back Surgery, Cholecystectomy, Hysterectomy, Joint Replacement, Tonsillectomy Additional Past Surgical History / Comment(s): LT TOTAL KNEE. SCREWS IN BOTH FEET. BACK SURGERY X 2. COLONOSCOPY, EGD. BILAT CATARACT SX Past Anesthesia/Blood Transfusion Reactions: Previous Problems w/ Anesthesia, Motion Sickness Additional Past Anesthesia/Blood Transfusion Reaction / Comm: "FELT LIKE i WAS CLIMBING [place] AFTER ANESTHESIA IN [place]" Past Psychological History: Anxiety, Depression Smoking Status: Never smoker Past Alcohol Use History: None Reported Additional Past Alcohol Use History / Comment(s): Patient is a lifelong nonsmoker. She denies any marijuana or street drug use. No alcohol use. Past Drug Use History: None Reported - Past Family History Mother Family Medical History: No Reported History Additional Family Medical History / Comment(s): Mother at age 87 from diabetes and coronary artery disease. Father Additional Family Medical History / Comment(s): Father at age 89 few weeks after his . Brother(s) Additional Family Medical History / Comment(s): She has 2 brothers and one from coronary artery disease and the other is alive with no major medical problems. Patient has 2 children with no major medical problems. Medications and Allergies Home Medications Medication Instructions Recorded Confirmed Type Cholecalciferol [Vitamin D3] 1,000 unit PO DAILY 08/30/17 11/15/17 History Cortisone Acetate [Cortone] 12.5 mg PO HS 08/30/17 11/15/17 History Cortisone Acetate [Cortone] 25 mg PO BID 08/30/17 11/15/17 History Dicyclomine [Bentyl] 10 mg PO DAILY PRN 08/30/17 11/15/17 History Diphenox-Atrop 2.5-0.025 mg 3 each PO QID PRN 08/30/17 11/15/17 History [Lomotil] Fexofenadine HCl 60 mg PO DAILY 08/30/17 11/15/17 History Fludrocortisone [Florinef] 1 mg PO DAILY 08/30/17 11/15/17 History Fluticasone Propionate [Flovent 2 puff INHALATION DAILY PRN 08/30/17 11/15/17 History Hfa 110mcg] Levothyroxine Sodium [Levoxyl] 200 mcg PO DAILY 08/30/17 11/15/17 History Meloxicam [Mobic] 7.5 mg PO DAILY 08/30/17 11/15/17 History Metoprolol Tartrate [Lopressor] 100 mg PO DAILY 08/30/17 11/15/17 History Prasterone (Dhea) [Dhea 25] 25 mg PO WE 08/30/17 11/15/17 History Solumedrol 40 mg INJ DAILY PRN 08/30/17 11/15/17 History Trimethobenzamide [Tigan] 300 mg PO DAILY PRN 08/30/17 11/15/17 History tiZANidine HCL 2 mg PO HS 08/30/17 11/15/17 History traZODone HCL [TraZODone HCl] 50 g PO HS 08/30/17 11/15/17 History Allergies Allergy/AdvReac Type Severity Reaction Status Date / Time Penicillins Allergy Anaphylaxis Verified 11/15/17 07:29 adhesive tape AdvReac Rash/Hives Verified 11/15/17 07:29 cephalexin [From Keflex] AdvReac Nausea & Verified 11/15/17 07:29 Vomiting erythromycin base AdvReac Nausea & Verified 11/15/17 07:29 Vomiting Tetracyclines AdvReac Nausea & Verified 11/15/17 07:29 Vomiting Physical Exam Vitals: Vital Signs Temp Pulse Pulse Pulse Resp BP BP 11/15/17 10:31 62 16 135/67 11/15/17 10:15 63 16 161/70 11/15/17 10:00 62 16 141/68 11/15/17 09:45 62 16 137/65 11/15/17 09:30 68 16 141/74 11/15/17 09:10 97.8 F 90 14 148/72 11/15/17 07:32 98.4 F 96 18 186/86 11/15/17 06:53 96 18 134/71 11/15/17 05:43 78 16 146/79 11/15/17 04:09 73 173/77 11/15/17 03:43 98.3 F 67 17 145/105 Pulse Ox 11/15/17 10:31 100 11/15/17 10:15 100 11/15/17 10:00 100 11/15/17 09:45 97 11/15/17 09:30 99 11/15/17 09:10 95 11/15/17 07:32 98 11/15/17 06:53 95 11/15/17 05:43 95 11/15/17 04:09 11/15/17 03:43 100 Intake and Output 11/14/17 11/15/17 11/15/17 22:59 06:59 14:59 Intake Total 1700 Output Total 75 Balance 1625 Intake: IV 1700 Output: Estimated Blood Loss 75 Other: Weight 90.718 kg Gen: This is a 67-year-old female. She is on a stretcher and appears to be comfortable. No acute distress noted. HEENT: Head is atraumatic, normocephalic. Pupils equal, round. Sclerae is anicteric. NECK: Supple. No JVD. No lymphadenopathy. No thyromegaly. LUNGS: Clear to auscultation. No wheezes or rhonchi. No intercostal retractions. HEART: Regular rate and rhythm. No murmur. ABDOMEN: Soft. Bowel sounds hypoactive. No masses. Mild generalized tenderness. EXTREMITIES: No pedal edema. No calf tenderness. Dorsalis pedis +2 bilaterally. NEUROLOGICAL: Patient is awake, alert and oriented x3. Cranial nerves 2 through 12 are grossly intact. Results CBC & Chem 7: 11/15/17 03:40 11/15/17 03:40 Labs: Abnormal Lab Results - Last 24 Hours (Table) 11/15/17 11/15/17 11/15/17 Range/Units 03:36 03:40 03:40 WBC 24.0 H (3.8-10.6) k/uL RBC 6.08 H (3.80-5.40) m/uL Hgb 18.2 H (11.4-16.0) gm/dL Hct 56.5 H (34.0-46.0) % Neutrophils # 21.6 H (1.3-7.7) k/uL Potassium 5.2 H (3.5-5.1) mmol/L Glucose 206 H (74-99) mg/dL POC Glucose (mg/dL) 167 H (75-99) mg/dL Plasma Lactic Acid Homer (0.7-2.0) mmol/L Urine Appearance (Clear) Urine Protein (Negative) Urine Ketones (Negative) Urine Blood (Negative) Ur Leukocyte Esterase (Negative) Urine WBC (0-5) /hpf Urine Bacteria (None) /hpf Hyaline Casts (0-2) /lpf Urine Mucus (None) /hpf 11/15/17 11/15/17 11/15/17 Range/Units 03:40 05:41 09:50 WBC (3.8-10.6) k/uL RBC (3.80-5.40) m/uL Hgb (11.4-16.0) gm/dL Hct (34.0-46.0) % Neutrophils # (1.3-7.7) k/uL Potassium (3.5-5.1) mmol/L Glucose (74-99) mg/dL POC Glucose (mg/dL) (75-99) mg/dL Plasma Lactic Acid Homer 3.5 H* 4.3 H* (0.7-2.0) mmol/L Urine Appearance Cloudy H (Clear) Urine Protein Trace H (Negative) Urine Ketones 1+ H (Negative) Urine Blood Trace H (Negative) Ur Leukocyte Esterase Large H (Negative) Urine WBC 19 H (0-5) /hpf Urine Bacteria Rare H (None) /hpf Hyaline Casts 13 H (0-2) /lpf Urine Mucus Moderate H (None) /hpf Assessment and Plan Plan: 1. Small bowel volvulus causing obstruction status post expiratory laparotomy with segmental small bowel resection under the care of Dr. Vallejo. Patient is currently on IV fluids, nothing by mouth, and Dilaudid for pain. Incentive spirometry to reduce incidence of atelectasis and hospital-acquired pneumonia. 2. Hypertension. Patient is normally on Toprol-XL 100 mg daily. Vasotec added for systolic greater than 160. 3. Mohave's disease normally on cortisone 25 mg twice daily and 12.5 mg at bedtime. Patient will be placed on Solu-Cortef 100 mg IV every 8 hours. 4. Hypothyroidism. Patient is on levothyroxine 200 g daily. Patient will be placed on levothyroxine IV push 100 g until she intake oral. 5. Diabetes mellitus type 2 with hyperglycemia. IV fluids will be changed from D5 and half to normal saline at 80 mL per hour. NovoLog scale every 6 hours. 6. Small mild intermittent asthma. Singulair on hold. Patient will be resumed on Flovent or equivalent and started on DuoNeb treatments every 8 hours as needed for shortness of breath. 7. GI prophylaxis. Protonix. 8. DVT prophylaxis. SCDs and TAMARA hose. Patient will be admitted to the hospital for a minimum of 2 night stay. Discharge plan: Return home Impression and plan of care have been directed as dictated by the signing physician. Jyotsna Aviles nurse practitioner acting as scribe for signing physician.
[2017-11-15 16:28] LABS: Glucose,Whole Blood 264 mg/dL (75-99)
[2017-11-15] MEDS: HYDROCORTISONE SUCCINATE 100 MG/2 ML VIAL IV SCH (17:40)
[2017-11-15] MEDS: PANTOPRAZOLE 40 MG/10 ML VIAL IV SCH (23:18)
[2017-11-15] MEDS: INSULIN ASPART 100 UNIT/ML 1 ML 10 ML VIAL SQ SCH ×2 (23:19→23:21)
[2017-11-15 23:47] LABS: Glucose,Whole Blood 236 mg/dL (75-99)
[2017-11-16] MEDS: INSULIN ASPART 100 UNIT/ML 1 ML 10 ML VIAL SQ SCH ×4 (00:14→17:52)
[2017-11-16] MEDS: HYDROCORTISONE SUCCINATE 100 MG/2 ML VIAL IV SCH ×3 (00:14→15:22)
[2017-11-16] MEDS: SODIUM CHLORIDE 0.9% 1,000 ML IV SCH ×3 (00:18→07:40)
[2017-11-16 06:01] LABS: Glucose,Whole Blood 210 mg/dL (75-99)
[2017-11-16 07:12] LABS: Glucose,Whole Blood 200 mg/dL (75-99)
[2017-11-16] MEDS: PANTOPRAZOLE 40 MG/10 ML VIAL IV SCH (07:33)
[2017-11-16] MEDS: LEVOTHYROXINE IVP 100 MCG/5 ML VIAL IV SCH (07:34)
[2017-11-16 07:36] LABS: Basophils % (A) 0 %; Eosinophils % (A) 0 %; HCT 45.7 % (34.0-46.0); Lymphocytes # (A) 0.8 k/uL (1.0-4.8); Lymphocytes % (A) 3 %; MCH 29.7 pg (25.0-35.0); MCHC 31.6 g/dL (31.0-37.0); Mean Platelet Volume 9.7; Monocytes # (A) 0.8 k/uL (0-1.0); Monocytes % (A) 3 %; Neutrophils # (A) 20.5 k/uL (1.3-7.7); Neutrophils % (A) 92 %; Platelet Count 277 k/uL (150-450); RBC 4.86 m/uL (3.80-5.40); RDW 14.7 % (11.5-15.5); WBC 22.3 k/uL (3.8-10.6)
[2017-11-16 07:39] LABS: HGB 14.4 gm/dL (11.4-16.0)
[2017-11-16 07:40] LABS: Albumin 3.1 g/dL (3.5-5.0); Calcium 9.1 mg/dL (8.4-10.2); Potassium 5.1 mmol/L (3.5-5.1); Total Bilirubin 0.6 mg/dL (0.2-1.3); Total Protein 5.4 g/dL (6.3-8.2)
[2017-11-16] MEDS: INSULIN DETEMIR 100 UNIT/ML 10 ML VIAL SQ SCH (10:19)
--- NOTE | 2017-11-16 10:33 | P.PN ---
Subjective Progress Note Date: 11/16/17 Principal diagnosis: Status post small bowel resection The patient's postop day 1 from a segmental small bowel resection due to a small bowel volvulus. She is doing well. Her pain is well controlled. Denies any flatus. She denies nausea or vomiting. Objective - Vital Signs Vital signs: Vital Signs Temp 98.1 F 11/16/17 07:30 Pulse 89 11/16/17 07:30 Resp 16 11/16/17 07:30 BP 124/81 11/16/17 07:30 Pulse Ox 98 11/16/17 07:30 Intake & Output 11/15/17 11/16/17 11/16/17 18:59 06:59 18:59 Intake Total 1700 1380 Output Total 275 15 Balance 1425 1365 Weight 90.718 kg Intake: IV 1700 Intake, IV Titration 1280 Amount D5-0.45% NaCl with KCl 200 20Meq/l 1,000 ml @ 80 mls /hr IV .[id number] [facility] Rx#: [id number] Sodium Chloride 0.9% 1, 1080 000 ml @ 80 mls/hr IV . [id number] [facility] Rx#:[id number] Oral 100 Output: Gastric Drainage 15 Urine 200 Estimated Blood Loss 75 Other: Voiding Method Toilet Toilet Bedside Commode # Voids 2 1 - Constitutional General appearance: Present: cooperative, no acute distress - Respiratory Respiratory: bilateral: CTA, diminished (Mildly at the base) - Cardiovascular Rhythm: regular - Gastrointestinal General gastrointestinal: Present: decreased bowel sounds, soft Localized gastrointestinal: surgical scar: diffuse (Dressing is intact clean and dry) - Labs CBC & Chem 7: 11/16/17 06:19 11/16/17 06:19 Labs: Abnormal Lab Results - Last 24 Hours (Table) 11/15/17 11/15/17 11/15/17 Range/Units 11:54 16:26 23:45 WBC (3.8-10.6) k/uL Neutrophils # (1.3-7.7) k/uL Lymphocytes # (1.0-4.8) k/uL Chloride (98-107) mmol/L BUN (7-17) mg/dL Glucose (74-99) mg/dL POC Glucose (mg/dL) 233 H 264 H 236 H (75-99) mg/dL Total Protein (6.3-8.2) g/dL Albumin (3.5-5.0) g/dL 11/16/17 11/16/17 11/16/17 Range/Units 06:00 06:19 06:19 WBC 22.3 H (3.8-10.6) k/uL Neutrophils # 20.5 H (1.3-7.7) k/uL Lymphocytes # 0.8 L (1.0-4.8) k/uL Chloride 108 H (98-107) mmol/L BUN 22 H (7-17) mg/dL Glucose 212 H (74-99) mg/dL POC Glucose (mg/dL) 210 H (75-99) mg/dL Total Protein 5.4 L (6.3-8.2) g/dL Albumin 3.1 L (3.5-5.0) g/dL 11/16/17 Range/Units 07:10 WBC (3.8-10.6) k/uL Neutrophils # (1.3-7.7) k/uL Lymphocytes # (1.0-4.8) k/uL Chloride (98-107) mmol/L BUN (7-17) mg/dL Glucose (74-99) mg/dL POC Glucose (mg/dL) 200 H (75-99) mg/dL Total Protein (6.3-8.2) g/dL Albumin (3.5-5.0) g/dL Assessment and Plan (1) Ischemic necrosis of small bowel Current Visit: Yes Status: Acute Code(s): K55.029 - ACUTE INFARCTION OF SMALL INTESTINE, EXTENT UNSPECIFIED SNOMED Code(s): 625077960 (2) Addisons disease Current Visit: Yes Status: Acute Code(s): E27.1 - PRIMARY ADRENOCORTICAL INSUFFICIENCY SNOMED Code(s): 161786151 (3) Valvular heart disease Current Visit: Yes Status: Acute Code(s): I38 - ENDOCARDITIS, VALVE UNSPECIFIED SNOMED Code(s): 419270 (4) Achalasia Current Visit: Yes Status: Acute Code(s): K22.0 - ACHALASIA OF CARDIA SNOMED Code(s): 53105113 (5) Hypertension Current Visit: Yes Status: Acute Code(s): I10 - ESSENTIAL (PRIMARY) HYPERTENSION SNOMED Code(s): 85541866 Plan: Usual postoperative course was discussed with the patient. Increase activity as tolerated. Continue IV fluids and pain control. DVT and ulcer prophylaxis. Progressing slowly. Medicine is addressing her elevated blood sugars. Her continued leukocytosis is likely due to the stress doses of steroids she is receiving or her Flathead's disease.
[2017-11-16 11:36] LABS: Glucose,Whole Blood 177 mg/dL (75-99)
--- NOTE | 2017-11-16 15:14 | P.PN ---
Subjective Progress Note Date: 11/16/17 This is a 67-year-old female patient of Dr. Stevenson Lewis with past medical history of skin cancer, diabetes mellitus type 2, hypertension, Wei' s disease, vitamin D deficiency, hypothyroidism, generalized anxiety disorder, recurrent depression. Patient states that she had developed abdominal pain and has no history of bowel obstruction in the past and no abdominal surgeries. She had diarrhea earlier in the day and took Imodium. By nighttime she developed nausea and vomiting and came into [facility] emergency center for evaluation. She underwent a CAT scan of the abdomen and pelvis which revealed a closed loop small bowel obstruction. Radial rate of small bowel loops in the mid to lower abdomen and pelvis with mesenteric vessels converging into [place]. Free fluid along the mesenteric interloop edema. Patient went to the OR with Dr. Vallejo and underwent exploratory laparotomy with segmental small bowel resection. Patient seen in the recovery room. 11/16: Patient seen on the surgical unit. NG tube remains in place. Blood sugars are running in the 200s and Levemir daily added to her medications along with the NovoLog scale. Hemoglobin is stable at 14.4, BUN 22 and creatinine 0.87, white count is improved to 22.3. Objective - Vital Signs Vital signs: Vital Signs Temp 98.1 F 11/16/17 07:30 Pulse 89 11/16/17 07:30 Resp 16 11/16/17 07:30 BP 124/81 11/16/17 07:30 Pulse Ox 98 11/16/17 07:30 Intake & Output 11/15/17 11/16/17 11/16/17 18:59 06:59 18:59 Intake Total 1700 1380 Output Total 275 15 Balance 1425 1365 Weight 90.718 kg Intake: IV 1700 Intake, IV Titration 1280 Amount D5-0.45% NaCl with KCl 200 20Meq/l 1,000 ml @ 80 mls /hr IV .[id number] [facility] Rx#: [id number] Sodium Chloride 0.9% 1, 1080 000 ml @ 80 mls/hr IV . [id number] [facility] Rx#:[id number] Oral 100 Output: Gastric Drainage 15 Urine 200 Estimated Blood Loss 75 Other: Voiding Method Toilet Toilet Bedside Commode # Voids 2 1 - Exam Gen: This is a 67-year-old female. She is on a stretcher and appears to be comfortable. No acute distress noted. HEENT: Head is atraumatic, normocephalic. Pupils equal, round. Sclerae is anicteric. NG tube in place. NECK: Supple. No JVD. No lymphadenopathy. No thyromegaly. LUNGS: Clear to auscultation. No wheezes or rhonchi. No intercostal retractions. HEART: Regular rate and rhythm. No murmur. ABDOMEN: Soft. Bowel sounds hypoactive. No masses. Mild generalized tenderness. EXTREMITIES: No pedal edema. No calf tenderness. Dorsalis pedis +2 bilaterally. NEUROLOGICAL: Patient is awake, alert and oriented x3. Cranial nerves 2 through 12 are grossly intact. - Labs CBC & Chem 7: 11/16/17 06:19 11/16/17 06:19 Labs: Abnormal Lab Results - Last 24 Hours (Table) 11/15/17 11/15/17 11/15/17 Range/Units 11:54 16:26 23:45 WBC (3.8-10.6) k/uL Neutrophils # (1.3-7.7) k/uL Lymphocytes # (1.0-4.8) k/uL Chloride (98-107) mmol/L BUN (7-17) mg/dL Glucose (74-99) mg/dL POC Glucose (mg/dL) 233 H 264 H 236 H (75-99) mg/dL Total Protein (6.3-8.2) g/dL Albumin (3.5-5.0) g/dL 11/16/17 11/16/17 11/16/17 Range/Units 06:00 06:19 06:19 WBC 22.3 H (3.8-10.6) k/uL Neutrophils # 20.5 H (1.3-7.7) k/uL Lymphocytes # 0.8 L (1.0-4.8) k/uL Chloride 108 H (98-107) mmol/L BUN 22 H (7-17) mg/dL Glucose 212 H (74-99) mg/dL POC Glucose (mg/dL) 210 H (75-99) mg/dL Total Protein 5.4 L (6.3-8.2) g/dL Albumin 3.1 L (3.5-5.0) g/dL 11/16/17 Range/Units 07:10 WBC (3.8-10.6) k/uL Neutrophils # (1.3-7.7) k/uL Lymphocytes # (1.0-4.8) k/uL Chloride (98-107) mmol/L BUN (7-17) mg/dL Glucose (74-99) mg/dL POC Glucose (mg/dL) 200 H (75-99) mg/dL Total Protein (6.3-8.2) g/dL Albumin (3.5-5.0) g/dL Assessment and Plan Plan: 1. Small bowel volvulus causing obstruction status post expiratory laparotomy with segmental small bowel resection under the care of Dr. Vallejo. Patient is currently on IV fluids, nothing by mouth, NG tube, and Dilaudid for pain. Incentive spirometry to reduce incidence of atelectasis and hospital-acquired pneumonia. 2. Hypertension. Patient is normally on Toprol-XL 100 mg daily. Vasotec added for systolic greater than 160. 3. Wei's disease normally on cortisone 25 mg twice daily and 12.5 mg at bedtime. Patient will be placed on Solu-Cortef 100 mg IV every 8 hours. 4. Hypothyroidism. Patient is on levothyroxine 200 g daily. Patient will be placed on levothyroxine IV push 100 g until she intake oral. 5. Diabetes mellitus type 2 with hyperglycemia. IV fluids will be changed from D5 and half to normal saline at 80 mL per hour. NovoLog scale every 6 hours. Levemir 10 units daily added. 6. Mild intermittent asthma. Singulair on hold. Patient will be resumed on Flovent or equivalent and started on DuoNeb treatments every 8 hours as needed for shortness of breath. 7. GI prophylaxis. Protonix. 8. DVT prophylaxis. SCDs and TAMARA hose. Discharge plan: Return home Impression and plan of care have been directed as dictated by the signing physician. Jyotsna Aviles nurse practitioner acting as scribe for signing physician.
[2017-11-16 17:47] LABS: Glucose,Whole Blood 163 mg/dL (75-99)
[2017-11-17 00:08] LABS: Glucose,Whole Blood 139 mg/dL (75-99)
[2017-11-17] MEDS: INSULIN ASPART 100 UNIT/ML 1 ML 10 ML VIAL SQ SCH ×4 (00:22→18:13)
[2017-11-17] MEDS: HYDROCORTISONE SUCCINATE 100 MG/2 ML VIAL IV SCH ×2 (00:22→07:26)
[2017-11-17 05:50] LABS: Glucose,Whole Blood 154 mg/dL (75-99)
[2017-11-17] MEDS: SODIUM CHLORIDE 0.9% 1,000 ML IV SCH ×2 (06:54→07:20)
[2017-11-17] MEDS: INSULIN DETEMIR 100 UNIT/ML 10 ML VIAL SQ SCH (07:26)
[2017-11-17] MEDS: LEVOTHYROXINE IVP 100 MCG/5 ML VIAL IV SCH (07:26)
[2017-11-17] MEDS: PANTOPRAZOLE 40 MG/10 ML VIAL IV SCH (07:26)
[2017-11-17] MEDS: methylPREDNISolone SOD SUCCI 125 MG/2 ML VIAL IV SCH ×3 (10:55→18:12)
[2017-11-17] MEDS ORDERED: methylPREDNISolone SOD SUCCI 125 MG/2 ML VIAL IV SCH (12:00)
[2017-11-17 12:49] LABS: Glucose,Whole Blood 162 mg/dL (75-99)
--- NOTE | 2017-11-17 15:05 | P.PN ---
Subjective Progress Note Date: 11/17/17 This is a 67-year-old female patient of Dr. Stevenson Lewis with past medical history of skin cancer, diabetes mellitus type 2, hypertension, Wei' s disease, vitamin D deficiency, hypothyroidism, generalized anxiety disorder, recurrent depression. Patient states that she had developed abdominal pain and has no history of bowel obstruction in the past and no abdominal surgeries. She had diarrhea earlier in the day and took Imodium. By nighttime she developed nausea and vomiting and came into [facility] emergency center for evaluation. She underwent a CAT scan of the abdomen and pelvis which revealed a closed loop small bowel obstruction. Radial rate of small bowel loops in the mid to lower abdomen and pelvis with mesenteric vessels converging into [place]. Free fluid along the mesenteric interloop edema. Patient went to the OR with Dr. Vallejo and underwent exploratory laparotomy with segmental small bowel resection. Patient seen in the recovery room. 11/16: Patient seen on the surgical unit. NG tube remains in place. Blood sugars are running in the 200s and Levemir daily added to her medications along with the NovoLog scale. Hemoglobin is stable at 14.4, BUN 22 and creatinine 0.87, white count is improved to 22.3. 11/17: Patient remains with NG tube in place. Patient has been on Solu-Cortef and is requesting a change to Solu-Medrol and she states she does not do well with the Solu-Cortef. She is complaining of blurred vision. Medications will be changed today. She has been afebrile. Pulse ox is 94% on room air. Blood sugars are much improved today running 139-162. This afternoon, Dr. Vallejo is ordered for NG tube removal and start clear liquid diet. Medications have been reviewed. Objective - Vital Signs Vital signs: Vital Signs Temp 97.9 F 11/17/17 07:18 Pulse 76 11/17/17 07:18 Resp 16 11/17/17 07:38 BP 146/78 11/17/17 07:18 Pulse Ox 94 L 11/17/17 07:18 Intake & Output 11/16/17 11/17/17 11/17/17 18:59 06:59 18:59 Intake Total 1810 Output Total 100 50 Balance -100 1760 Intake: Intake, IV Titration 1280 Amount Sodium Chloride 0.9% 1, 1280 000 ml @ 80 mls/hr IV . [id number] [facility] Rx#:[id number] Oral 530 Output: Gastric Drainage 100 50 Other: Voiding Method Bedside Commode Bedside Commode Bedside Commode # Voids 1 3 - Exam Gen: This is a 67-year-old female. She is on a stretcher and appears to be comfortable. No acute distress noted. HEENT: Head is atraumatic, normocephalic. Pupils equal, round. Sclerae is anicteric. NG tube in place. NECK: Supple. No JVD. No lymphadenopathy. No thyromegaly. LUNGS: Clear to auscultation. No wheezes or rhonchi. No intercostal retractions. HEART: Regular rate and rhythm. No murmur. ABDOMEN: Soft. Bowel sounds hypoactive. No masses. Mild generalized tenderness. EXTREMITIES: No pedal edema. No calf tenderness. Dorsalis pedis +2 bilaterally. NEUROLOGICAL: Patient is awake, alert and oriented x3. Cranial nerves 2 through 12 are grossly intact. - Labs CBC & Chem 7: 11/16/17 06:19 11/16/17 06:19 Labs: Abnormal Lab Results - Last 24 Hours (Table) 11/16/17 11/16/17 11/17/17 Range/Units 11:30 17:43 00:03 POC Glucose (mg/dL) 177 H 163 H 139 H (75-99) mg/dL 11/17/17 Range/Units 05:48 POC Glucose (mg/dL) 154 H (75-99) mg/dL Assessment and Plan Plan: 1. Small bowel volvulus causing obstruction status post expiratory laparotomy with segmental small bowel resection under the care of Dr. Vallejo. Patient is currently on IV fluids, clear liquid diet to start this evening and NG tube to be removed, and Dilaudid for pain. Incentive spirometry to reduce incidence of atelectasis and hospital-acquired pneumonia. 2. Hypertension. Toprol-XL 100 mg daily assumed with parameters. Vasotec IV for systolic greater than 160. 3. Wei's disease normally on cortisone 25 mg twice daily and 12.5 mg at bedtime. Solu-Cortef changed to Solu-Medrol per patient's request. 4. Hypothyroidism. Patient will be resumed on levothyroxine 200 g daily. 5. Diabetes mellitus type 2 with hyperglycemia. Continue normal saline at 80 mL per hour. NovoLog scale every 6 hours. Levemir 10 units and add yesterday with improvement of blood sugars. 6. Small mild intermittent asthma. Singulair resumed. Continue Flovent and started on DuoNeb treatments every 8 hours as needed for shortness of breath. 7. GI prophylaxis. Protonix. 8. DVT prophylaxis. SCDs and TAMARA hose. Discharge plan: Return home Impression and plan of care have been directed as dictated by the signing physician. Jyotsna Aviles nurse practitioner acting as scribe for signing physician.
[2017-11-17 17:39] LABS: Glucose,Whole Blood 145 mg/dL (75-99)
[2017-11-17] MEDS: traZODone HCL 50 MG TAB PO SCH (22:31)
[2017-11-18] MEDS: methylPREDNISolone SOD SUCCI 125 MG/2 ML VIAL IV SCH ×3 (00:13→14:16)
[2017-11-18] MEDS: INSULIN ASPART 100 UNIT/ML 1 ML 10 ML VIAL SQ SCH ×4 (01:03→18:12)
[2017-11-18 01:09] LABS: Glucose,Whole Blood 174 mg/dL (75-99)
[2017-11-18] MEDS: LEVOTHYROXINE 100 MCG TAB PO SCH (05:16)
[2017-11-18] MEDS: SODIUM CHLORIDE 0.9% 1,000 ML IV SCH ×2 (05:17→18:13)
[2017-11-18 05:55] LABS: Glucose,Whole Blood 153 mg/dL (75-99)
[2017-11-18] MEDS: METOPROLOL SUCCINATE (ER) 100 MG TAB.ER.24H PO SCH (08:27)
[2017-11-18] MEDS: MONTELUKAST 10 MG TAB PO SCH (08:28)
[2017-11-18] MEDS: traZODone HCL 50 MG TAB PO SCH ×2 (08:28→22:56)
[2017-11-18] MEDS: PANTOPRAZOLE 40 MG/10 ML VIAL IV SCH (08:28)
[2017-11-18] MEDS: INSULIN DETEMIR 100 UNIT/ML 10 ML VIAL SQ SCH (08:36)
[2017-11-18 09:06] LABS: Basophils % (A) 0 %; Eosinophils % (A) 0 %; HCT 41.1 % (34.0-46.0); HGB 13.2 gm/dL (11.4-16.0); Lymphocytes # (A) 0.6 k/uL (1.0-4.8); Lymphocytes % (A) 5 %; MCHC 32.3 g/dL (31.0-37.0); Mean Platelet Volume 9.5; Monocytes # (A) 0.3 k/uL (0-1.0); Monocytes % (A) 2 %; Neutrophils # (A) 10.7 k/uL (1.3-7.7); Neutrophils % (A) 92 %; Platelet Count 207 k/uL (150-450); RBC 4.42 m/uL (3.80-5.40); RDW 14.2 % (11.5-15.5); WBC 11.6 k/uL (3.8-10.6)
[2017-11-18 09:09] LABS: ALT 31 U/L (9-52); AST 22 U/L (14-36); Albumin 3.1 g/dL (3.5-5.0); Alkaline Phosphatase 42 U/L (38-126); Anion Gap 7 mmol/L; Blood Urea Nitrogen 17 mg/dL (7-17); Carbon Dioxide 27 mmol/L (22-30); Chloride 106 mmol/L (98-107); Glucose 221 mg/dL (74-99); Magnesium 2.1 mg/dL (1.6-2.3); Potassium 4.5 mmol/L (3.5-5.1); Sodium 140 mmol/L (137-145); Total Bilirubin 0.8 mg/dL (0.2-1.3); Total Protein 5.3 g/dL (6.3-8.2)
[2017-11-18 11:38] LABS: Glucose,Whole Blood 209 mg/dL (75-99)
--- NOTE | 2017-11-18 14:30 | P.PN ---
Subjective Progress Note Date: 11/18/17 Patient doing well, had BM x2 denies abdominal pain. No NV Objective - Vital Signs Vital signs: Vital Signs Temp 97.8 F 11/18/17 07:20 Pulse 83 11/18/17 07:20 Resp 14 11/18/17 07:20 BP 164/84 11/18/17 07:20 Pulse Ox 94 L 11/18/17 07:20 Intake & Output 11/17/17 11/18/17 11/18/17 18:59 06:59 18:59 Intake Total 200 560 Balance 200 560 Intake: Intake, IV Titration 560 Amount Sodium Chloride 0.9% 1, 560 000 ml @ 80 mls/hr IV . [id number] [facility] Rx#:[id number] Oral 200 Other: Voiding Method Bedside Commode Bedside Commode Bedside Commode # Voids 1 1 2 - Constitutional General appearance: Present: cooperative - Respiratory Details: nonlabored - Cardiovascular Rhythm: regular - Gastrointestinal Gastrointestinal Comment(s): S/NT/ND - Psychiatric Psychiatric: Present: A&O x's 3 - Labs CBC & Chem 7: 11/18/17 08:46 11/18/17 08:46 Labs: Abnormal Lab Results - Last 24 Hours (Table) 11/17/17 11/18/17 11/18/17 Range/Units 17:36 00:46 05:54 WBC (3.8-10.6) k/uL Neutrophils # (1.3-7.7) k/uL Lymphocytes # (1.0-4.8) k/uL Glucose (74-99) mg/dL POC Glucose (mg/dL) 145 H 174 H 153 H (75-99) mg/dL Total Protein (6.3-8.2) g/dL Albumin (3.5-5.0) g/dL 11/18/17 11/18/17 11/18/17 Range/Units 08:46 08:46 11:37 WBC 11.6 H (3.8-10.6) k/uL Neutrophils # 10.7 H (1.3-7.7) k/uL Lymphocytes # 0.6 L (1.0-4.8) k/uL Glucose 221 H (74-99) mg/dL POC Glucose (mg/dL) 209 H (75-99) mg/dL Total Protein 5.3 L (6.3-8.2) g/dL Albumin 3.1 L (3.5-5.0) g/dL Assessment and Plan Assessment: S/P exlap SBR, history of addisons dx. Plan: Patient may be advanced to soft diet. She is doing well from surgical standpoint. Patient is being tappered off IV steriods secondary to her addisons Dx.
--- NOTE | 2017-11-18 16:35 | P.PN ---
Subjective Progress Note Date: 11/18/17 This is a 67-year-old female patient of Dr. Stevenson Lewis with past medical history of skin cancer, diabetes mellitus type 2, hypertension, Wei' s disease, vitamin D deficiency, hypothyroidism, generalized anxiety disorder, recurrent depression. Patient states that she had developed abdominal pain and has no history of bowel obstruction in the past and no abdominal surgeries. She had diarrhea earlier in the day and took Imodium. By nighttime she developed nausea and vomiting and came into [facility] emergency center for evaluation. She underwent a CAT scan of the abdomen and pelvis which revealed a closed loop small bowel obstruction. Radial rate of small bowel loops in the mid to lower abdomen and pelvis with mesenteric vessels converging into [place]. Free fluid along the mesenteric interloop edema. Patient went to the OR with Dr. Vallejo and underwent exploratory laparotomy with segmental small bowel resection. Patient seen in the recovery room. 11/16: Patient seen on the surgical unit. NG tube remains in place. Blood sugars are running in the 200s and Levemir daily added to her medications along with the NovoLog scale. Hemoglobin is stable at 14.4, BUN 22 and creatinine 0.87, white count is improved to 22.3. 11/17: Patient remains with NG tube in place. Patient has been on Solu-Cortef and is requesting a change to Solu-Medrol and she states she does not do well with the Solu-Cortef. She is complaining of blurred vision. Medications will be changed today. She has been afebrile. Pulse ox is 94% on room air. Blood sugars are much improved today running 139-162. This afternoon, Dr. Vallejo is ordered for NG tube removal and start clear liquid diet. Medications have been reviewed. 11/18: Patient is laying down in bed in no current distress, she denies any chest pain, or shortness breath, she is tolerating Solu-Medrol 38-year-old, we will decrease the dose to 40 mg IV push every 8 hours, and ptosis the patient tomorrow morning to her Cortef. Objective - Vital Signs Vital signs: Vital Signs Temp 98.3 F 11/18/17 00:48 Pulse 72 11/18/17 00:48 Resp 15 11/18/17 00:48 BP 130/76 11/18/17 00:48 Pulse Ox 92 L 11/18/17 00:48 Intake & Output 11/17/17 11/18/17 11/18/17 18:59 06:59 18:59 Intake Total 200 Balance 200 Intake: Oral 200 Other: Voiding Method Bedside Commode Bedside Commode # Voids 1 1 - Exam - Exam Gen: This is a 67-year-old female. She is on a stretcher and appears to be comfortable. No acute distress noted. HEENT: Head is atraumatic, normocephalic. Pupils equal, round. Sclerae is anicteric. NG tube in place. NECK: Supple. No JVD. No lymphadenopathy. No thyromegaly. LUNGS: Clear to auscultation. No wheezes or rhonchi. No intercostal retractions. HEART: Regular rate and rhythm. No murmur. ABDOMEN: Soft. Bowel sounds hypoactive. No masses. Mild generalized tenderness. EXTREMITIES: No pedal edema. No calf tenderness. Dorsalis pedis +2 bilaterally. NEUROLOGICAL: Patient is awake, alert and oriented x3. Cranial nerves 2 through 12 are grossly intact. - Labs CBC & Chem 7: 11/18/17 08:46 11/18/17 08:46 Labs: Abnormal Lab Results - Last 24 Hours (Table) 11/17/17 11/17/17 11/18/17 Range/Units 12:47 17:36 00:46 POC Glucose (mg/dL) 162 H 145 H 174 H (75-99) mg/dL 11/18/17 Range/Units 05:54 POC Glucose (mg/dL) 153 H (75-99) mg/dL Assessment and Plan Assessment: Assessment and Plan Plan: 1. Small bowel volvulus causing obstruction status post expiratory laparotomy with segmental small bowel resection under the care of Dr. Vallejo. Patient is currently on IV fluids, clear liquid diet to start this evening and NG tube to be removed, and Dilaudid for pain. Incentive spirometry to reduce incidence of atelectasis and hospital-acquired pneumonia. 2. Hypertension. Toprol-XL 100 mg daily assumed with parameters. Vasotec IV for systolic greater than 160. 3. Gates's disease normally on cortisone 25 mg twice daily and 12.5 mg at bedtime. Solu-Cortef changed to Solu-Medrol we will decrease the dose to 40 mg IV push every 8 hours as to switch the patient tomorrow morning to her cortone. 4. Hypothyroidism. Patient will be resumed on levothyroxine 200 g daily. 5. Diabetes mellitus type 2 with hyperglycemia. Continue normal saline at 80 mL per hour. NovoLog scale every 6 hours. Levemir 10 units and add yesterday with improvement of blood sugars. 6. Small mild intermittent asthma. Singulair resumed. Continue Flovent and started on DuoNeb treatments every 8 hours as needed for shortness of breath. 7. GI prophylaxis. Protonix. 8. DVT prophylaxis. SCDs and TAMARA oswald.
[2017-11-18 17:23] LABS: Glucose,Whole Blood 142 mg/dL (75-99)
[2017-11-18] MEDS: methylPREDNISolone SOD SUCCI 40 MG/ML 1 ML VIAL IV SCH (18:12)
[2017-11-18 23:25] LABS: Glucose,Whole Blood 201 mg/dL (75-99)
[2017-11-19] MEDS: SODIUM CHLORIDE 0.9% 1,000 ML IV SCH (03:59)
[2017-11-19 05:18] LABS: Glucose,Whole Blood 156 mg/dL (75-99)
[2017-11-19] MEDS: INSULIN ASPART 100 UNIT/ML 1 ML 10 ML VIAL SQ SCH ×5 (05:48→23:59)
[2017-11-19] MEDS: LEVOTHYROXINE 100 MCG TAB PO SCH (05:48)
[2017-11-19 06:57] LABS: Basophils % (A) 0 %; Eosinophils % (A) 0 %; HCT 39.4 % (34.0-46.0); HGB 13.2 gm/dL (11.4-16.0); Lymphocytes # (A) 0.5 k/uL (1.0-4.8); Lymphocytes % (A) 4 %; MCH 30.6 pg (25.0-35.0); MCHC 33.4 g/dL (31.0-37.0); MCV 91.7 fL (80.0-100.0); Mean Platelet Volume 9.9; Monocytes # (A) 0.4 k/uL (0-1.0); Monocytes % (A) 4 %; Neutrophils # (A) 10.5 k/uL (1.3-7.7); Neutrophils % (A) 92 %; Platelet Count 211 k/uL (150-450); WBC 11.4 k/uL (3.8-10.6)
[2017-11-19 07:06] LABS: Albumin 2.8 g/dL (3.5-5.0); Blood Urea Nitrogen 19 mg/dL (7-17); Carbon Dioxide 25 mmol/L (22-30); Chloride 109 mmol/L (98-107); Glucose 156 mg/dL (74-99); Sodium 138 mmol/L (137-145); Total Bilirubin 0.8 mg/dL (0.2-1.3); Total Protein 5.1 g/dL (6.3-8.2)
[2017-11-19 07:12] LABS: ALT 27 U/L (9-52); AST 22 U/L (14-36); Alkaline Phosphatase 30 U/L (38-126); Anion Gap 4 mmol/L; Potassium 4.6 mmol/L (3.5-5.1)
[2017-11-19] MEDS: methylPREDNISolone SOD SUCCI 40 MG/ML 1 ML VIAL IV SCH ×2 (08:02)
[2017-11-19] MEDS: traZODone HCL 50 MG TAB PO SCH ×2 (08:46→20:04)
[2017-11-19] MEDS: METOPROLOL SUCCINATE (ER) 100 MG TAB.ER.24H PO SCH (08:46)
[2017-11-19] MEDS: PANTOPRAZOLE 40 MG/10 ML VIAL IV SCH (08:46)
[2017-11-19] MEDS: MONTELUKAST 10 MG TAB PO SCH (08:46)
[2017-11-19] MEDS: INSULIN DETEMIR 100 UNIT/ML 10 ML VIAL SQ SCH (08:46)
[2017-11-19 11:44] LABS: Glucose,Whole Blood 163 mg/dL (75-99)
[2017-11-19] MEDS ORDERED: TRIMETHOBENZAMIDE 300 MG CAP PO PRN (13:13)
[2017-11-19] MEDS ORDERED: NON-FORMULARY DRUG (Levalbuterol Tartrate [Xopenex Hfa Inhaler] 2 PUFF) INHALATION PRN (13:13)
[2017-11-19] MEDS ORDERED: CORTISONE ACETATE 25 MG PO SCH ×2 (13:15→21:00)
--- NOTE | 2017-11-19 13:56 | P.PN ---
Subjective Progress Note Date: 11/19/17 Patient doing well, had BM x2 denies abdominal pain. No NV Objective - Vital Signs Vital signs: Vital Signs Temp 98.9 F 11/19/17 07:15 Pulse 68 11/19/17 07:15 Resp 14 11/19/17 07:15 BP 158/83 11/19/17 07:15 Pulse Ox 95 11/19/17 07:15 Intake & Output 11/18/17 11/19/17 11/19/17 18:59 06:59 18:59 Intake Total 560 1160 50 Balance 560 1160 50 Intake: Intake, IV Titration 560 1160 Amount Sodium Chloride 0.9% 1, 560 1160 000 ml @ 80 mls/hr IV . [id number] [facility] Rx#:[id number] Oral 50 Other: Voiding Method Bedside Commode Bedside Commode # Voids 2 3 - Constitutional General appearance: Present: cooperative - Respiratory Details: nonlabored - Cardiovascular Rhythm: regular - Gastrointestinal Gastrointestinal Comment(s): S/NT/ND incision CDI - Psychiatric Psychiatric: Present: A&O x's 3 - Labs CBC & Chem 7: 11/19/17 06:31 11/19/17 06:31 Labs: Abnormal Lab Results - Last 24 Hours (Table) 11/18/17 11/18/17 11/19/17 Range/Units 17:21 22:58 05:17 WBC (3.8-10.6) k/uL Neutrophils # (1.3-7.7) k/uL Lymphocytes # (1.0-4.8) k/uL Chloride (98-107) mmol/L BUN (7-17) mg/dL Glucose (74-99) mg/dL POC Glucose (mg/dL) 142 H 201 H 156 H (75-99) mg/dL Alkaline Phosphatase (38-126) U/L Total Protein (6.3-8.2) g/dL Albumin (3.5-5.0) g/dL 11/19/17 11/19/17 11/19/17 Range/Units 06:31 06:31 11:43 WBC 11.4 H (3.8-10.6) k/uL Neutrophils # 10.5 H (1.3-7.7) k/uL Lymphocytes # 0.5 L (1.0-4.8) k/uL Chloride 109 H (98-107) mmol/L BUN 19 H (7-17) mg/dL Glucose 156 H (74-99) mg/dL POC Glucose (mg/dL) 163 H (75-99) mg/dL Alkaline Phosphatase 30 L (38-126) U/L Total Protein 5.1 L (6.3-8.2) g/dL Albumin 2.8 L (3.5-5.0) g/dL Assessment and Plan Assessment: S/P exlap SBR, history of addisons dx. Plan: Patient tolerating soft diet. She is doing well from surgical standpoint. Patient is being tappered off IV steriods secondary to her addisons Dx.
--- NOTE | 2017-11-19 14:18 | P.PN ---
Subjective Progress Note Date: 11/19/17 This is a 67-year-old female patient of Dr. Stevenson Lewis with past medical history of skin cancer, diabetes mellitus type 2, hypertension, Wei' s disease, vitamin D deficiency, hypothyroidism, generalized anxiety disorder, recurrent depression. Patient states that she had developed abdominal pain and has no history of bowel obstruction in the past and no abdominal surgeries. She had diarrhea earlier in the day and took Imodium. By nighttime she developed nausea and vomiting and came into [facility] emergency center for evaluation. She underwent a CAT scan of the abdomen and pelvis which revealed a closed loop small bowel obstruction. Radial rate of small bowel loops in the mid to lower abdomen and pelvis with mesenteric vessels converging into [place]. Free fluid along the mesenteric interloop edema. Patient went to the OR with Dr. Vallejo and underwent exploratory laparotomy with segmental small bowel resection. Patient seen in the recovery room. 11/16: Patient seen on the surgical unit. NG tube remains in place. Blood sugars are running in the 200s and Levemir daily added to her medications along with the NovoLog scale. Hemoglobin is stable at 14.4, BUN 22 and creatinine 0.87, white count is improved to 22.3. 11/17: Patient remains with NG tube in place. Patient has been on Solu-Cortef and is requesting a change to Solu-Medrol and she states she does not do well with the Solu-Cortef. She is complaining of blurred vision. Medications will be changed today. She has been afebrile. Pulse ox is 94% on room air. Blood sugars are much improved today running 139-162. This afternoon, Dr. Vallejo is ordered for NG tube removal and start clear liquid diet. Medications have been reviewed. 11/18: Patient is laying down in bed in no current distress, she denies any chest pain, or shortness breath, she is tolerating Solu-Medrol 38-year-old, we will decrease the dose to 40 mg IV push every 8 hours, and ptosis the patient tomorrow morning to her Cortef. 11/19: Patient is doing much better today she will be taken off her SolU-Medrol , She'll be started on cortisone acetate 25 mg twice a day and 12.5 mg at bedtime , we will restart Florinef 0.1 mg orally once every day, we will discontinue IV fluid, we'll ask for physical therapy evaluation, patient likely would be discharged home tomorrow morning Objective - Vital Signs Vital signs: Vital Signs Temp 98.9 F 11/19/17 07:15 Pulse 68 11/19/17 07:15 Resp 14 11/19/17 07:15 BP 158/83 11/19/17 07:15 Pulse Ox 95 11/19/17 07:15 Intake & Output 11/18/17 11/19/17 11/19/17 18:59 06:59 18:59 Intake Total 560 1160 Balance 560 1160 Intake: Intake, IV Titration 560 1160 Amount Sodium Chloride 0.9% 1, 560 1160 000 ml @ 80 mls/hr IV . [id number] [facility] Rx#:[id number] Other: Voiding Method Bedside Commode # Voids 2 3 - Exam - Exam Gen: This is a 67-year-old female. She is on a stretcher and appears to be comfortable. No acute distress noted. HEENT: Head is atraumatic, normocephalic. Pupils equal, round. Sclerae is anicteric. NG tube in place. NECK: Supple. No JVD. No lymphadenopathy. No thyromegaly. LUNGS: Clear to auscultation. No wheezes or rhonchi. No intercostal retractions. HEART: Regular rate and rhythm. No murmur. ABDOMEN: Soft. Bowel sounds hypoactive. No masses. Mild generalized tenderness. EXTREMITIES: No pedal edema. No calf tenderness. Dorsalis pedis +2 bilaterally. NEUROLOGICAL: Patient is awake, alert and oriented x3. Cranial nerves 2 through 12 are grossly intact. - Labs CBC & Chem 7: 11/19/17 06:31 11/19/17 06:31 Labs: Abnormal Lab Results - Last 24 Hours (Table) 11/18/17 11/18/17 11/18/17 Range/Units 11:37 17:21 22:58 WBC (3.8-10.6) k/uL Neutrophils # (1.3-7.7) k/uL Lymphocytes # (1.0-4.8) k/uL Chloride (98-107) mmol/L BUN (7-17) mg/dL Glucose (74-99) mg/dL POC Glucose (mg/dL) 209 H 142 H 201 H (75-99) mg/dL Alkaline Phosphatase (38-126) U/L Total Protein (6.3-8.2) g/dL Albumin (3.5-5.0) g/dL 11/19/17 11/19/17 11/19/17 Range/Units 05:17 06:31 06:31 WBC 11.4 H (3.8-10.6) k/uL Neutrophils # 10.5 H (1.3-7.7) k/uL Lymphocytes # 0.5 L (1.0-4.8) k/uL Chloride 109 H (98-107) mmol/L BUN 19 H (7-17) mg/dL Glucose 156 H (74-99) mg/dL POC Glucose (mg/dL) 156 H (75-99) mg/dL Alkaline Phosphatase 30 L (38-126) U/L Total Protein 5.1 L (6.3-8.2) g/dL Albumin 2.8 L (3.5-5.0) g/dL Assessment and Plan Assessment: Assessment and Plan Plan: 1. Small bowel volvulus causing obstruction status post 2. Hypertension. Toprol-XL 100 mg daily assumed with parameters. Vasotec IV for systolic greater than 160. 3. Wei's disease normally on cortisone 25 mg twice daily and 12.5 mg at bedtime. Discontinue Solu-Medrol and restart her cortisone acetate and Florinef. 4. Hypothyroidism. Patient will be resumed on levothyroxine 200 g daily. 5. Diabetes mellitus type 2 with hyperglycemia. Continue normal saline at 80 mL per hour. NovoLog scale every 6 hours. Levemir 10 units and add yesterday with improvement of blood sugars. 6. Small mild intermittent asthma. Singulair resumed. Continue Flovent and started on DuoNeb treatments every 8 hours as needed for shortness of breath. 7. GI prophylaxis. Protonix. 8. DVT prophylaxis. SCDs and TAMARA oswald.
[2017-11-19] MEDS: FLUDROCORTISONE 0.1 MG TAB PO SCH (14:20)
[2017-11-19] MEDS: CORTISONE ACETATE 25 MG PO SCH (15:59)
[2017-11-19 17:35] LABS: Glucose,Whole Blood 124 mg/dL (75-99)
[2017-11-19 23:34] LABS: Glucose,Whole Blood 127 mg/dL (75-99)
[2017-11-20 05:41] LABS: Glucose,Whole Blood 78 mg/dL (75-99)
[2017-11-20] MEDS: LEVOTHYROXINE 100 MCG TAB PO SCH (05:43)
[2017-11-20] MEDS: INSULIN ASPART 100 UNIT/ML 1 ML 10 ML VIAL SQ SCH ×2 (05:46→12:25)
[2017-11-20 08:10] VITALS: BP 166/88; PULSE 55; RESP 12; TEMP 98
[2017-11-20] MEDS ORDERED: CHOLECALCIFEROL 1,000 UNIT TAB PO SCH (09:00)
[2017-11-20] MEDS: INSULIN DETEMIR 100 UNIT/ML 10 ML VIAL SQ SCH (09:06)
[2017-11-20] MEDS: CORTISONE ACETATE 25 MG PO SCH (09:07)
[2017-11-20] MEDS: MONTELUKAST 10 MG TAB PO SCH (09:08)
[2017-11-20] MEDS: traZODone HCL 50 MG TAB PO SCH (09:08)
[2017-11-20] MEDS: FLUDROCORTISONE 0.1 MG TAB PO SCH (09:08)
[2017-11-20] MEDS: PANTOPRAZOLE 40 MG/10 ML VIAL IV SCH (09:08)
[2017-11-20] MEDS: METOPROLOL SUCCINATE (ER) 100 MG TAB.ER.24H PO SCH (09:08)
[2017-11-20 11:48] LABS: Glucose,Whole Blood 93 mg/dL (75-99)
--- NOTE | 2017-11-20 11:49 | P.DS ---
Providers Date of admission: 11/15/17 06:56 Expected date of discharge: 11/20/17 Attending physician: Kiki Vallejo Consults: 11/15/17 08:55 Consult Physician Routine Consulting Provider: Holger Macario Consult Reason/Comments: medical management Do you want consulting provider notified?: Yes Primary care physician: Physician Nonstaff - Discharge Diagnosis(es) (1) Ischemic necrosis of small bowel Current Visit: Yes Status: Acute (2) Addisons disease Current Visit: Yes Status: Acute (3) Valvular heart disease Current Visit: Yes Status: Acute (4) Achalasia Current Visit: Yes Status: Acute (5) Hypertension Current Visit: Yes Status: Acute Hospital Course: The patient had presented to the emergency department with severe abdominal pain , nausea, vomiting. CT was suggestive of a small bowel volvulus. She was taken to the OR where she had about 3 feet of small bowel which was viable. It is resected. She was given prophylactic antibiotics. He was gradually be able to be increased on her diet and activity. By November 20 she was stable for discharge. Pertinent Studies: CT, labs Procedures: Small bowel resection Patient Condition at Discharge: Good Plan - Discharge Summary Discharge Rx Participant: Yes New Discharge Prescriptions: No Action Trimethobenzamide [Tigan] 300 mg PO BID PRN PRN Reason: Nausea Dicyclomine [Bentyl] 10 mg PO BID PRN PRN Reason: IBS Meloxicam [Mobic] 7.5 mg PO DAILY Levothyroxine Sodium [Levoxyl] 200 mcg PO DAILY Fexofenadine HCl 60 mg PO DAILY traZODone HCL [TraZODone HCl] 50 mg PO BID tiZANidine HCL 2 mg PO HS Solumedrol 40 mg INJ DAILY PRN PRN Reason: NE'S CRISIS Prasterone (Dhea) [Dhea 25] 25 mg PO WE Fluticasone Propionate [Flovent Hfa 110mcg] 3 puff INHALATION RT-BID PRN PRN Reason: Shortness Of Breath Fludrocortisone [Florinef] 0.1 mg PO DAILY Diphenox-Atrop 2.5-0.025 mg [Lomotil] 1 tab PO QID PRN PRN Reason: Diarrhea Cortisone Acetate [Cortone] 25 mg PO BID Cortisone Acetate [Cortone] 12.5 mg PO HS Cholecalciferol [Vitamin D3] 1,000 unit PO DAILY Montelukast [Singulair] 10 mg PO DAILY Metoprolol Succinate (ER) [Toprol Xl] 100 mg PO DAILY Levalbuterol Tartrate [Xopenex Hfa Inhaler] 2 puff INHALATION RT-Q6H PRN PRN Reason: Shortness Of Breath Discharge Medication List Cholecalciferol [Vitamin D3] 1,000 unit PO DAILY 08/30/17 [History] Cortisone Acetate [Cortone] 12.5 mg PO HS 08/30/17 [History] Cortisone Acetate [Cortone] 25 mg PO BID 08/30/17 [History] Dicyclomine [Bentyl] 10 mg PO BID PRN 08/30/17 [History] Diphenox-Atrop 2.5-0.025 mg [Lomotil] 1 tab PO QID PRN 08/30/17 [History] Fexofenadine HCl 60 mg PO DAILY 08/30/17 [History] Fludrocortisone [Florinef] 0.1 mg PO DAILY 08/30/17 [History] Fluticasone Propionate [Flovent Hfa 110mcg] 3 puff INHALATION RT-BID PRN [History] Levothyroxine Sodium [Levoxyl] 200 mcg PO DAILY 08/30/17 [History] Meloxicam [Mobic] 7.5 mg PO DAILY 08/30/17 [History] Prasterone (Dhea) [Dhea 25] 25 mg PO WE 08/30/17 [History] Solumedrol 40 mg INJ DAILY PRN 08/30/17 [History] Trimethobenzamide [Tigan] 300 mg PO BID PRN 08/30/17 [History] tiZANidine HCL 2 mg PO HS 08/30/17 [History] traZODone HCL [TraZODone HCl] 50 mg PO BID 08/30/17 [History] Levalbuterol Tartrate [Xopenex Hfa Inhaler] 2 puff INHALATION RT-Q6H PRN [History] Metoprolol Succinate (ER) [Toprol Xl] 100 mg PO DAILY 11/15/17 [History] Montelukast [Singulair] 10 mg PO DAILY 11/15/17 [History] Follow up Appointment(s)/Referral(s): Nonstaff,Physician [Primary Care Provider] - 1-2 days Kiki Vallejo DO [Doctor of Osteopathic Medicine] - 11/28/17 (Call [phone] for an appointment) Activity/Diet/Wound Care/Special Instructions: Patient home medication in [employer] You may shower. No tub baths for 1 week. Dry the incision well. Cover with a light dressing. Call or go to the ER if you develop fever, chills, nausea, vomiting, wound concerns. No driving until your follow-up appointment. No lifting greater than 10 pounds Discharge Disposition: HOME SELF-CARE
--- NOTE | 2017-11-20 15:22 | P.PN ---
Subjective Progress Note Date: 11/20/17 This is a 67-year-old female patient of Dr. Stevenson Lewis with past medical history of skin cancer, diabetes mellitus type 2, hypertension, Wei' s disease, vitamin D deficiency, hypothyroidism, generalized anxiety disorder, recurrent depression. Patient states that she had developed abdominal pain and has no history of bowel obstruction in the past and no abdominal surgeries. She had diarrhea earlier in the day and took Imodium. By nighttime she developed nausea and vomiting and came into [facility] emergency center for evaluation. She underwent a CAT scan of the abdomen and pelvis which revealed a closed loop small bowel obstruction. Radial rate of small bowel loops in the mid to lower abdomen and pelvis with mesenteric vessels converging into [place]. Free fluid along the mesenteric interloop edema. Patient went to the OR with Dr. Vallejo and underwent exploratory laparotomy with segmental small bowel resection. Patient seen in the recovery room. 11/16: Patient seen on the surgical unit. NG tube remains in place. Blood sugars are running in the 200s and Levemir daily added to her medications along with the NovoLog scale. Hemoglobin is stable at 14.4, BUN 22 and creatinine 0.87, white count is improved to 22.3. 11/17: Patient remains with NG tube in place. Patient has been on Solu-Cortef and is requesting a change to Solu-Medrol and she states she does not do well with the Solu-Cortef. She is complaining of blurred vision. Medications will be changed today. She has been afebrile. Pulse ox is 94% on room air. Blood sugars are much improved today running 139-162. This afternoon, Dr. Vallejo is ordered for NG tube removal and start clear liquid diet. Medications have been reviewed. 11/18: Patient is laying down in bed in no current distress, she denies any chest pain, or shortness breath, she is tolerating Solu-Medrol 38-year-old, we will decrease the dose to 40 mg IV push every 8 hours, and ptosis the patient tomorrow morning to her Cortef. 11/19: Patient is doing much better today she will be taken off her SolU-Medrol , She'll be started on cortisone acetate 25 mg twice a day and 12.5 mg at bedtime , we will restart Florinef 0.1 mg orally once every day, we will discontinue IV fluid, we'll ask for physical therapy evaluation, patient likely would be discharged home tomorrow morning 11/20: Patient is scheduled for discharge home today. She states she has had a bowel movement. She has been resumed on her home cortisone doses and is feeling well with that. Florinef is also been resumed. Objective - Vital Signs Vital signs: Vital Signs Temp 98 F 11/20/17 07:00 Pulse 55 L 11/20/17 07:00 Resp 12 11/20/17 07:00 BP 166/88 11/20/17 07:00 Pulse Ox 97 11/20/17 07:00 Intake & Output 11/19/17 11/20/17 11/20/17 18:59 06:59 18:59 Intake Total 530 480 Balance 530 480 Intake: Intake, IV Titration 480 240 Amount Sodium Chloride 0.9% 1, 480 240 000 ml @ 80 mls/hr IV . [id number] [facility] Rx#:[id number] Oral 50 240 Other: Voiding Method Bedside Commode Bedside Commode # Voids 2 2 - Exam Gen: This is a 67-year-old female. She is on a stretcher and appears to be comfortable. No acute distress noted. HEENT: Head is atraumatic, normocephalic. Pupils equal, round. Sclerae is anicteric. NECK: Supple. No JVD. No lymphadenopathy. No thyromegaly. LUNGS: Clear to auscultation. No wheezes or rhonchi. No intercostal retractions. HEART: Regular rate and rhythm. No murmur. ABDOMEN: Soft. Bowel sounds hypoactive. No masses. Mild generalized tenderness. EXTREMITIES: No pedal edema. No calf tenderness. Dorsalis pedis +2 bilaterally. NEUROLOGICAL: Patient is awake, alert and oriented x3. Cranial nerves 2 through 12 are grossly intact. - Labs CBC & Chem 7: 11/19/17 06:31 11/19/17 06:31 Labs: Abnormal Lab Results - Last 24 Hours (Table) 11/19/17 11/19/17 Range/Units 17:34 23:32 POC Glucose (mg/dL) 124 H 127 H (75-99) mg/dL Assessment and Plan Plan: 1. Small bowel volvulus causing obstruction status post expiratory laparotomy with segmental small bowel resection under the care of Dr. Vallejo. Patient is off IV fluids, NG tube to be removed, and Dilaudid for pain on and tolerating diet. Incentive spirometry to reduce incidence of atelectasis and hospital- acquired pneumonia. 2. Hypertension. Toprol-XL 100 mg daily assumed with parameters. Vasotec IV for systolic greater than 160. 3. [place]'s disease normally on cortisone 25 mg twice daily and 12.5 mg at bedtime. Solu-Cortef changed to Solu-Medrol per patient's request. 4. Hypothyroidism. Patient will be resumed on levothyroxine 200 g daily. 5. Diabetes mellitus type 2 with hyperglycemia secondary to high-dose steroids. 6. Small mild intermittent asthma. Singulair resumed. Continue Flovent and started on DuoNeb treatments every 8 hours as needed for shortness of breath. 7. GI prophylaxis. Protonix. 8. DVT prophylaxis. SCDs and TAMARA oswald. Discharge plan: Return home Impression and plan of care have been directed as dictated by the signing physician. Jyotsna Aviles nurse practitioner acting as scribe for signing physician.
== END 2017-11-20 14:07 | disposition home or self-care (01) | DRG 329 ==
LOC: EC 03:31 → 6SEL 06:56 → 3SUR 09:48
PROVIDERS: ADMIT Surgery; ATTEND Surgery
PROC: 0D9670Z Drainage of Stomach with Drainage Device, Via Natural or Artificial Opening (ICD-10-PCS; 2017-11-15)
PROC: 0DT80ZZ Resection of Small Intestine, Open Approach (ICD-10-PCS; principal; 2017-11-15 08:30)
DX: K56.2 Volvulus (principal); K55.029 Acute infarction of small intestine, extent unspecified; E27.1 Primary adrenocortical insufficiency; E87.2 Acidosis; F33.9 Major depressive disorder, recurrent, unspecified; I38 Endocarditis, valve unspecified; K22.0 Achalasia of cardia; E11.65 Type 2 diabetes mellitus with hyperglycemia; J45.20 Mild intermittent asthma, uncomplicated; I10 Essential (primary) hypertension; F41.1 Generalized anxiety disorder; E03.9 Hypothyroidism, unspecified; E55.9 Vitamin D deficiency, unspecified; Z79.1 Long term (current) use of non-steroidal anti-inflammatories (NSAID); Z79.890 Hormone replacement therapy; Z79.51 Long term (current) use of inhaled steroids; Z79.52 Long term (current) use of systemic steroids; Z79.899 Other long term (current) drug therapy; Z85.828 Personal history of other malignant neoplasm of skin; Z90.49 Acquired absence of other specified parts of digestive tract; Z90.710 Acquired absence of both cervix and uterus; Z98.42 Cataract extraction status, left eye; Z98.41 Cataract extraction status, right eye; Z96.652 Presence of left artificial knee joint; Z88.1 Allergy status to other antibiotic agents; Z88.0 Allergy status to penicillin; Z91.048 Other nonmedicinal substance allergy status; Z83.3 Family history of diabetes mellitus; Z82.49 Family history of ischemic heart disease and other diseases of the circulatory system
CPT/HCPCS: 36415; 74176; 80053; 81001; 82150; 83036; 83605; 83690; 83735; 85025; 86850; 86870; 86880; 86900; 86901; 86902; 88307; 93005; 96361; 96365; 96375; 96376; 99285

== ENCOUNTER 2018-10-05 04:35 | Emergency (ER) | payer MEDICARE ==
[2018-10-05] MEDS ORDERED: ONDANSETRON 4 MG/2 ML VIAL IVP STA (04:54)
[2018-10-05 05:02] LABS: Basophils % (A) 0 %; Eosinophils # (A) 0.2 k/uL (0-0.7); Eosinophils % (A) 1 %; HCT 47.6 % (34.0-46.0); HGB 15.5 gm/dL (11.4-16.0); Lymphocytes # (A) 0.5 k/uL (1.0-4.8); Lymphocytes % (A) 2 %; MCH 30.4 pg (25.0-35.0); MCHC 32.6 g/dL (31.0-37.0); MCV 93.3 fL (80.0-100.0); Mean Platelet Volume 9.6; Monocytes # (A) 0.8 k/uL (0-1.0); Monocytes % (A) 4 %; Neutrophils # (A) 18.7 k/uL (1.3-7.7); Neutrophils % (A) 92 %; Platelet Count 287 k/uL (150-450); RDW 14.7 % (11.5-15.5); WBC 20.4 k/uL (3.8-10.6)
[2018-10-05 05:12] LABS: Albumin 4.4 g/dL (3.5-5.0); Potassium 4.5 mmol/L (3.5-5.1); Total Bilirubin 1.1 mg/dL (0.2-1.3)
[2018-10-05 05:40] LABS: Appearance,Urine Cloudy (Clear); Bilirubin,Urine Negative (Negative); Blood,Urine Moderate (Negative); Color,Urine Yellow; Glucose,Urine (UA) Negative (Negative); Ketones,Urine 1+ (Negative); Leukocyte Esterase,Urine Large (Negative); Mucus,Urine Few /hpf; Nitrite,Urine Negative (Negative); Protein,Urine Trace (Negative); RBC,Urine 15 /hpf (0-5); Specific Gravity,Urine 1.022 (1.001-1.035); Squamous Epithelial Cell,Urine <1 /hpf (0-4); Urobilinogen,Urine <2.0 mg/dL (<2.0); WBC,Urine 15 /hpf (0-5)
[2018-10-05] MEDS ORDERED: NITROFURANTOIN MONOHYD/M-CRYST 100 MG CAP PO STA (05:47)
--- NOTE | 2018-10-05 06:21 | ED ---
Nausea/Vomiting/Diarrhea HPI - General Chief complaint: Nausea/Vomiting/Diarrhea Stated complaint: Nausea Vomiting Time Seen by Provider: 10/05/18 04:53 Source: EMS Mode of arrival: EMS Limitations: no limitations - History of Present Illness Initial comments: This patient is 68-year-old woman who presents to be evaluated for which she is concerned is an addisonian crisis. Patient states she has history of Wei's disease and tonight started having vomiting. She states that she then went to use the toilet and was having multiple episodes of diarrhea. She states that she more or less sat on her commode for between 2 and 3 hours. She states that she has had previous episodes like this that were related to [place]'s disease. She did self administer IM Solu-Medrol that she has at home for such cases. When she was not feeling better she did call EMS to brought her here. Subsequent history reveals that her had similar symptoms that just ended recently and had lasted about 5 days. The patient states she has also had a little bit of abdominal cramping but states that this is not the major component about her. It is intermittent, mild and has currently resolved. MD complaint: nausea, vomiting, diarrhea -: hour(s) Description of Vomiting: food contents Description of Diarrhea: water Associated Abdominal Pain: Yes Location: diffuse Radiation: none Severity: mild Quality: cramping Consistency: intermittent Improves with: none Worsens with: none Associated Symptoms: denies other symptoms - Related Data Home Medications Medication Instructions Recorded Confirmed Cholecalciferol [Vitamin D3 (25 1,000 unit PO DAILY 08/30/17 11/15/17 Mcg = 1000 Iu)] Cortisone Acetate [Cortone] 12.5 mg PO HS 08/30/17 11/15/17 Cortisone Acetate [Cortone] 25 mg PO BID 08/30/17 11/15/17 Dicyclomine [Bentyl] 10 mg PO BID PRN 08/30/17 11/15/17 Diphenox-Atrop 2.5-0.025 mg 1 tab PO QID PRN 08/30/17 11/15/17 [Lomotil] Fexofenadine HCl 60 mg PO DAILY 08/30/17 11/15/17 Fludrocortisone [Florinef] 0.1 mg PO DAILY 08/30/17 11/19/17 Fluticasone Propionate [Flovent 3 puff INHALATION RT-BID PRN 08/30/17 11/15/17 Hfa 110mcg] Levothyroxine Sodium [Levoxyl] 200 mcg PO DAILY 08/30/17 11/15/17 Meloxicam [Mobic] 7.5 mg PO DAILY 08/30/17 11/15/17 Prasterone (Dhea) [Dhea 25] 25 mg PO WE 08/30/17 11/15/17 Solumedrol 40 mg INJ DAILY PRN 08/30/17 11/15/17 Trimethobenzamide [Tigan] 300 mg PO BID PRN 08/30/17 11/15/17 tiZANidine HCL 2 mg PO HS 08/30/17 11/15/17 traZODone HCL 50 mg PO BID 08/30/17 11/15/17 Levalbuterol Tartrate [Xopenex Hfa 2 puff INHALATION RT-Q6H PRN 11/15/17 11/15/17 Inhaler] Metoprolol Succinate (ER) [Toprol 100 mg PO DAILY 11/15/17 11/15/17 XL] Montelukast [Singulair] 10 mg PO DAILY 11/15/17 11/15/17 Previous Rx's Medication Instructions Recorded Nitrofurantoin Monohyd/M-Cryst 100 mg PO Q12HR #6 cap 10/05/18 [Macrobid] Allergies Allergy/AdvReac Type Severity Reaction Status Date / Time Penicillins Allergy Anaphylaxis Verified 10/05/18 04:47 adhesive tape AdvReac Rash/Hives Verified 10/05/18 04:47 cephalexin [From Keflex] AdvReac Nausea & Verified 10/05/18 04:47 Vomiting erythromycin base AdvReac Nausea & Verified 10/05/18 04:47 Vomiting Tetracyclines AdvReac Nausea & Verified 10/05/18 04:47 Vomiting Review of Systems ROS Statement: Those systems with pertinent positive or pertinent negative responses have been documented in the HPI. ROS Other: All systems not noted in ROS Statement are negative. Constitutional: Denies: fever, chills Respiratory: Denies: cough, dyspnea Cardiovascular: Denies: chest pain, palpitations Gastrointestinal: Reports: as per HPI, abdominal pain, vomiting, diarrhea Genitourinary: Denies: dysuria, frequency, hematuria Musculoskeletal: Denies: back pain Skin: Denies: rash Past Medical History Past Medical History: Cancer, Diabetes Mellitus, Hypertension, Thyroid Disorder Additional Past Medical History / Comment(s): WEI'S DISEASE. Valvular heart disease. SKIN CANCER History of Any Multi-Drug Resistant Organisms: None Reported Past Surgical History: Adenoidectomy, Back Surgery, Cholecystectomy, Hys terectomy, Joint Replacement, Tonsillectomy Additional Past Surgical History / Comment(s): LT TOTAL KNEE. SCREWS IN BOTH FEET. BACK SURGERY X 2. COLONOSCOPY, EGD. BILAT CATARACT SX Past Anesthesia/Blood Transfusion Reactions: Previous Problems w/ Anesthesia, Motion Sickness Additional Past Anesthesia/Blood Transfusion Reaction / Comment(s): "FELT LIKE i WAS CLIMBING [place] AFTER ANESTHESIA IN [place]" Past Psychological History: Anxiety, Depression Smoking Status: Never smoker Past Alcohol Use History: None Reported Past Drug Use History: None Reported - Past Family History Mother Family Medical History: No Reported History Additional Family Medical History / Comment(s): Mother at age 87 from diabetes and coronary artery disease. Father Additional Family Medical History / Comment(s): Father at age 89 few weeks after his . Brother(s) Additional Family Medical History / Comment(s): She has 2 brothers and one from coronary artery disease and the other is alive with no major medical problems. Patient has 2 children with no major medical problems. General Exam Limitations: no limitations General appearance: alert, in no apparent distress Head exam: Present: atraumatic, normocephalic Eye exam: Present: normal appearance. Absent: scleral icterus, conjunctival injection ENT exam: Present: normal oropharynx Neck exam: Present: normal inspection Respiratory exam: Present: normal lung sounds bilaterally. Absent: respiratory distress, wheezes, rales, rhonchi, stridor Cardiovascular Exam: Present: regular rate, normal rhythm, normal heart sounds. Absent: systolic murmur, diastolic murmur, rubs, gallop GI/Abdominal exam: Present: soft. Absent: distended, tenderness, guarding, rebound, rigid, mass, pulsatile mass Extremities exam: Present: normal inspection, normal capillary refill. Absent: pedal edema, calf tenderness Back exam: Present: normal inspection. Absent: CVA tenderness (R), CVA tenderness (L) Skin exam: Present: warm, dry, intact, normal color. Absent: rash Course Vital Signs 07/05/19 07/05/19 07/05/19 04:41 05:26 06:02 Temperature 98.6 F Pulse Rate 96 95 70 Respiratory 15 17 18 Rate Blood Pressure 152/78 125/79 130/70 O2 Sat by Pulse 98 100 94 L Oximetry 10/05/18 06:46 Temperature 99.1 F Pulse Rate 82 Respiratory 17 Rate Blood Pressure 112/72 O2 Sat by Pulse 95 Oximetry Medical Decision Making - Medical Decision Making The patient is feeling better following medications. No further vomiting. She does have normal-appearing electrolytes. She has not been hypotensive. I suspect that this is much more likely to be gastroenteritis given what her had experienced recently, and less likely to be related to her [place]'s disease, given her normal blood pressure and electrolytes. We did discuss appropriate further care and follow-up, as she wants to go home and rest. She does appear to be stable for this - Lab Data Result diagrams: 10/05/18 04:47 10/05/18 04:47 Lab Results 10/05/18 10/05/18 10/05/18 Range/Units 03:11 04:47 04:47 WBC 20.4 H (3.8-10.6) k/uL RBC 5.10 (3.80-5.40) m/uL Hgb 15.5 (11.4-16.0) gm/dL Hct 47.6 H (34.0-46.0) % MCV 93.3 (80.0-100.0) fL MCH 30.4 (25.0-35.0) pg MCHC 32.6 (31.0-37.0) g/dL RDW 14.7 (11.5-15.5) % Plt Count 287 (150-450) k/uL Neutrophils % 92 % Lymphocytes % 2 % Monocytes % 4 % Eosinophils % 1 % Basophils % 0 % Neutrophils # 18.7 H (1.3-7.7) k/uL Lymphocytes # 0.5 L (1.0-4.8) k/uL Monocytes # 0.8 (0-1.0) k/uL Eosinophils # 0.2 (0-0.7) k/uL Basophils # 0.0 (0-0.2) k/uL Sodium 139 (137-145) mmol/L Potassium 4.5 (3.5-5.1) mmol/L Chloride 104 (98-107) mmol/L Carbon Dioxide 22 (22-30) mmol/L Anion Gap 13 mmol/L BUN 17 (7-17) mg/dL Creatinine 0.84 (0.52-1.04) mg/dL Est GFR (CKD-EPI)AfAm 81 (>60 ml/min/1.73 sqM) Est GFR (CKD-EPI)NonAf 71 (>60 ml/min/1.73 sqM) Glucose 199 H (74-99) mg/dL Calcium 10.0 (8.4-10.2) mg/dL Total Bilirubin 1.1 (0.2-1.3) mg/dL AST 30 (14-36) U/L ALT 22 (9-52) U/L Alkaline Phosphatase 76 (38-126) U/L Total Protein 7.0 (6.3-8.2) g/dL Albumin 4.4 (3.5-5.0) g/dL Amylase 53 (30-110) U/L Lipase 52 (23-300) U/L Urine Color Yellow Urine Appearance Cloudy H (Clear) Urine pH 5.0 (5.0-8.0) Ur Specific [place] 1.022 (1.001-1.035) Urine Protein Trace H (Negative) Urine Glucose (UA) Negative (Negative) Urine Ketones 1+ H (Negative) Urine Blood Moderate H (Negative) Urine Nitrite Negative (Negative) Urine Bilirubin Negative (Negative) Urine Urobilinogen <2.0 (<2.0) mg/dL Ur Leukocyte Esterase Large H (Negative) Urine RBC 15 H (0-5) /hpf Urine WBC 15 H (0-5) /hpf Ur Squamous Epith Cells <1 (0-4) /hpf Urine Mucus Few H (None) /hpf Disposition Clinical Impression: Vomiting and diarrhea, Urinary tract infection Disposition: HOME SELF-CARE Condition: Good Instructions (If sedation given, give patient instructions): Acute Nausea and Vomiting (ED), Acute Diarrhea (ED) Prescriptions: Nitrofurantoin Monohyd/M-Cryst [Macrobid] 100 mg PO Q12HR #6 cap Is patient prescribed a controlled substance at d/c from ED?: No Referrals: Nonstaff,Physician [Primary Care Provider] - 1-2 days
[2018-10-05 06:47] VITALS: BP 112/72; PULSE 82; RESP 17; TEMP 99.1
== END 2018-10-05 06:47 | disposition home or self-care (01) ==
LOC: EC 04:35
DX: R11.2 Nausea with vomiting, unspecified (principal); R19.7 Diarrhea, unspecified; N39.0 Urinary tract infection, site not specified; I10 Essential (primary) hypertension; E07.9 Disorder of thyroid, unspecified; F32.9 Major depressive disorder, single episode, unspecified; F41.9 Anxiety disorder, unspecified; Z90.49 Acquired absence of other specified parts of digestive tract; Z90.710 Acquired absence of both cervix and uterus; Z96.652 Presence of left artificial knee joint; Z85.828 Personal history of other malignant neoplasm of skin; Z79.52 Long term (current) use of systemic steroids; Z79.890 Hormone replacement therapy; Z79.1 Long term (current) use of non-steroidal anti-inflammatories (NSAID); Z79.899 Other long term (current) drug therapy; Z88.0 Allergy status to penicillin; Z91.048 Other nonmedicinal substance allergy status; Z88.1 Allergy status to other antibiotic agents
CPT/HCPCS: 36415; 80053; 82150; 83690; 85025; 81001; 99284; 96374; J2405

== ENCOUNTER 2018-12-19 03:46 | Inpatient (IN) | payer MEDICARE ==
[2018-12-19] MEDS ORDERED: ACETAMINOPHEN TAB 325 MG TAB PO STA (04:03)
[2018-12-19] MEDS ORDERED: HYDROCORTISONE SUCCINATE 100 MG/2 ML VIAL IV STA (04:04)
[2018-12-19] MEDS ORDERED: SODIUM CHLORIDE 0.9% 1,000 ML IV ONE ×2 (04:05→05:15)
--- NOTE | 2018-12-19 04:10 | ED ---
Weakness HPI - General Chief complaint: Weakness Stated complaint: Fall, flu like symptoms Time Seen by Provider: 12/19/18 03:48 Source: patient, EMS Mode of arrival: EMS Limitations: no limitations - History of Present Illness Initial comments: This patient is 68-year-old woman brought by ambulance to be evaluated for fever and generalized weakness. The patient has not been feeling well since . She started having congestion, facial pressure, cough. Patient was seen at an urgent care, diagnosed with sinus infection and started on Bactrim. The patient has had 3 days of Bactrim. Over the course of tonight, patient has had a number of episodes of nausea and vomiting that she thought may be related to the Bactrim. And then she had 2 falls tonight, when she had gone to the bathroom. She typically walks with a walker. After the second fall, the patient was too weak to get back up and walk. The weakness is bilateral. Patient is denying strokelike symptoms. MD Complaint: generalized weakness, difficulty walking -: hour(s) Location: LLE, RLE Severity: severe Consistency: constant Improves with: none Worsens with: none Associated Symptoms: fever/chills, nausea/vomiting - Related Data Home Medications Medication Instructions Recorded Confirmed Cholecalciferol [Vitamin D3 (25 1,000 unit PO DAILY 08/30/17 11/15/17 Mcg = 1000 Iu)] Cortisone Acetate [Cortone] 12.5 mg PO HS 08/30/17 11/15/17 Cortisone Acetate [Cortone] 25 mg PO BID 08/30/17 11/15/17 Dicyclomine [Bentyl] 10 mg PO BID PRN 08/30/17 11/15/17 Diphenox-Atrop 2.5-0.025 mg 1 tab PO QID PRN 08/30/17 11/15/17 [Lomotil] Fexofenadine HCl 60 mg PO DAILY 08/30/17 11/15/17 Fludrocortisone [Florinef] 0.1 mg PO DAILY 08/30/17 11/19/17 Fluticasone Propionate [Flovent 3 puff INHALATION RT-BID PRN 08/30/17 11/15/17 Hfa 110mcg] Levothyroxine Sodium [Levoxyl] 200 mcg PO DAILY 08/30/17 11/15/17 Meloxicam [Mobic] 7.5 mg PO DAILY 08/30/17 11/15/17 Prasterone (Dhea) [Dhea 25] 25 mg PO WE 08/30/17 11/15/17 Solumedrol 40 mg INJ DAILY PRN 08/30/17 11/15/17 Trimethobenzamide [Tigan] 300 mg PO BID PRN 08/30/17 11/15/17 tiZANidine HCL 2 mg PO HS 08/30/17 11/15/17 traZODone HCL 50 mg PO BID 08/30/17 11/15/17 Levalbuterol Tartrate [Xopenex Hfa 2 puff INHALATION RT-Q6H PRN 11/15/17 11/15/17 Inhaler] Metoprolol Succinate (ER) [Toprol 100 mg PO DAILY 11/15/17 11/15/17 XL] Montelukast [Singulair] 10 mg PO DAILY 11/15/17 11/15/17 Previous Rx's Medication Instructions Recorded Nitrofurantoin Monohyd/M-Cryst 100 mg PO Q12HR #6 cap 10/05/18 [Macrobid] Allergies Allergy/AdvReac Type Severity Reaction Status Date / Time Penicillins Allergy Anaphylaxis Verified 10/05/18 04:47 adhesive tape AdvReac Rash/Hives Verified 10/05/18 04:47 cephalexin [From Keflex] AdvReac Nausea & Verified 10/05/18 04:47 Vomiting erythromycin base AdvReac Nausea & Verified 10/05/18 04:47 Vomiting Tetracyclines AdvReac Nausea & Verified 10/05/18 04:47 Vomiting Review of Systems ROS Statement: Those systems with pertinent positive or pertinent negative responses have been documented in the HPI. ROS Other: All systems not noted in ROS Statement are negative. Constitutional: Reports: fever, chills, weakness (Generalized) Eyes: Denies: vision change ENT: Reports: congestion. Denies: throat pain Respiratory: Reports: cough. Denies: dyspnea, wheezes, hemoptysis Cardiovascular: Denies: chest pain, orthopnea, edema, syncope Gastrointestinal: Reports: nausea, vomiting. Denies: abdominal pain, diarrhea, constipation, hematemesis, melena, hematochezia Genitourinary: Denies: dysuria, hematuria Musculoskeletal: Denies: back pain Skin: Denies: rash Neurological: Denies: headache, weakness, numbness, paresthesias Past Medical History Past Medical History: Cancer, Diabetes Mellitus, Hypertension, Thyroid Disorder Additional Past Medical History / Comment(s): NE'S DISEASE. Valvular heart disease. SKIN CANCER History of Any Multi-Drug Resistant Organisms: None Reported Past Surgical History: Adenoidectomy, Back Surgery, Cholecystectomy, Hysterectomy, Joint Replacement, Tonsillectomy Additional Past Surgical History / Comment(s): LT TOTAL KNEE. SCREWS IN BOTH FEET. BACK SURGERY X 2. COLONOSCOPY, EGD. BILAT CATARACT SX Past Anesthesia/Blood Transfusion Reactions: Previous Problems w/ Anesthesia, Motion Sickness Additional Past Anesthesia/Blood Transfusion Reaction / Comment(s): "FELT LIKE i WAS CLIMBING [place] AFTER ANESTHESIA IN [place]" Past Psychological History: Anxiety, Depression Smoking Status: Never smoker Past Alcohol Use History: None Reported Past Drug Use History: None Reported - Past Family History Mother Family Medical History: No Reported History Additional Family Medical History / Comment(s): Mother at age 87 from diabetes and coronary artery disease. Father Additional Family Medical History / Comment(s): Father at age 89 few weeks after his . Brother(s) Additional Family Medical History / Comment(s): She has 2 brothers and one from coronary artery disease and the other is alive with no major medical problems. Patient has 2 children with no major medical problems. General Exam Limitations: no limitations General appearance: alert, in no apparent distress Head exam: Present: atraumatic, normocephalic Eye exam: Present: normal appearance. Absent: scleral icterus, conjunctival injection ENT exam: Present: normal oropharynx Neck exam: Present: normal inspection Respiratory exam: Present: rhonchi. Absent: respiratory distress, wheezes, rales, stridor, accessory muscle use, decreased breath sounds Cardiovascular Exam: Present: tachycardia, normal heart sounds. Absent: systolic murmur, diastolic murmur, rubs, gallop GI/Abdominal exam: Present: soft. Absent: distended, tenderness, guarding, rebound, rigid, mass Extremities exam: Present: normal inspection, normal capillary refill. Absent: pedal edema, calf tenderness Back exam: Present: normal inspection. Absent: CVA tenderness (R), CVA tenderness (L), vertebral tenderness Neurological exam: Present: alert. Absent: motor sensory deficit Skin exam: Present: warm, dry, intact, normal color. Absent: rash Course Vital Signs 12/19/18 12/19/18 03:56 04:41 Temperature 100.2 F H 100 F H Pulse Rate 130 H 134 H Respiratory 20 20 Rate Blood Pressure 126/72 124/71 O2 Sat by Pulse 98 98 Oximetry Medical Decision Making - Lab Data Result diagrams: 12/19/18 04:27 12/19/18 04:27 Lab Results 12/19/18 12/19/18 12/19/18 Range/Units 04:27 04:27 04:27 WBC 18.7 H (3.8-10.6) k/uL RBC 5.21 (3.80-5.40) m/uL Hgb 15.5 (11.4-16.0) gm/dL Hct 48.1 H (34.0-46.0) % MCV 92.4 (80.0-100.0) fL MCH 29.7 (25.0-35.0) pg MCHC 32.2 (31.0-37.0) g/dL RDW 14.4 (11.5-15.5) % Plt Count 333 (150-450) k/uL Neutrophils % 83 % Lymphocytes % 3 % Monocytes % 4 % Eosinophils % 6 % Basophils % 2 % Neutrophils # 15.5 H (1.3-7.7) k/uL Lymphocytes # 0.6 L (1.0-4.8) k/uL Monocytes # 0.8 (0-1.0) k/uL Eosinophils # 1.2 H (0-0.7) k/uL Basophils # 0.4 H (0-0.2) k/uL PT (9.0-12.0) sec INR (<1.2) APTT (22.0-30.0) sec Sodium 138 (137-145) mmol/L Potassium 4.0 (3.5-5.1) mmol/L Chloride 101 (98-107) mmol/L Carbon Dioxide 20 L (22-30) mmol/L Anion Gap 17 mmol/L BUN 18 H (7-17) mg/dL Creatinine 1.27 H (0.52-1.04) mg/dL Est GFR (CKD-EPI)AfAm 50 (>60 ml/min/1.73 sqM) Est GFR (CKD-EPI)NonAf 43 (>60 ml/min/1.73 sqM) Glucose 157 H (74-99) mg/dL Plasma Lactic Acid Homer (0.7-2.0) mmol/L Calcium 9.9 (8.4-10.2) mg/dL Total Bilirubin 0.8 (0.2-1.3) mg/dL AST 56 H (14-36) U/L ALT 35 (9-52) U/L Alkaline Phosphatase 95 (38-126) U/L CK-MB (CK-2) 2.0 (0.0-2.4) ng/mL Troponin I 0.168 H* (0.000-0.034) ng/mL Total Protein 7.3 (6.3-8.2) g/dL Albumin 4.4 (3.5-5.0) g/dL Urine Color Urine Appearance (Clear) Urine pH (5.0-8.0) Ur Specific [place] (1.001-1.035) Urine Protein (Negative) Urine Glucose (UA) (Negative) Urine Ketones (Negative) Urine Blood (Negative) Urine Nitrite (Negative) Urine Bilirubin (Negative) Urine Urobilinogen (<2.0) mg/dL Ur Leukocyte Esterase (Negative) Urine RBC (0-5) /hpf Urine WBC (0-5) /hpf Ur Squamous Epith Cells (0-4) /hpf Amorphous Sediment (None) /hpf Urine Bacteria (None) /hpf Hyaline Casts (0-2) /lpf Granular Casts (0) /lpf Urine Mucus (None) /hpf Influenza Type A RNA (Not Detectd) Influenza Type B (PCR) (Not Detectd) 12/19/18 12/19/18 12/19/18 Range/Units 04:27 04:27 04:30 WBC (3.8-10.6) k/uL RBC (3.80-5.40) m/uL Hgb (11.4-16.0) gm/dL Hct (34.0-46.0) % MCV (80.0-100.0) fL MCH (25.0-35.0) pg MCHC (31.0-37.0) g/dL RDW (11.5-15.5) % Plt Count (150-450) k/uL Neutrophils % % Lymphocytes % % Monocytes % % Eosinophils % % Basophils % % Neutrophils # (1.3-7.7) k/uL Lymphocytes # (1.0-4.8) k/uL Monocytes # (0-1.0) k/uL Eosinophils # (0-0.7) k/uL Basophils # (0-0.2) k/uL PT 12.0 (9.0-12.0) sec INR 1.2 H (<1.2) APTT 22.1 (22.0-30.0) sec Sodium (137-145) mmol/L Potassium (3.5-5.1) mmol/L Chloride (98-107) mmol/L Carbon Dioxide (22-30) mmol/L Anion Gap mmol/L BUN (7-17) mg/dL Creatinine (0.52-1.04) mg/dL Est GFR (CKD-EPI)AfAm (>60 ml/min/1.73 sqM) Est GFR (CKD-EPI)NonAf (>60 ml/min/1.73 sqM) Glucose (74-99) mg/dL Plasma Lactic Acid Homer 5.9 H* (0.7-2.0) mmol/L Calcium (8.4-10.2) mg/dL Total Bilirubin (0.2-1.3) mg/dL AST (14-36) U/L ALT (9-52) U/L Alkaline Phosphatase (38-126) U/L CK-MB (CK-2) (0.0-2.4) ng/mL Troponin I (0.000-0.034) ng/mL Total Protein (6.3-8.2) g/dL Albumin (3.5-5.0) g/dL Urine Color Urine Appearance (Clear) Urine pH (5.0-8.0) Ur Specific [place] (1.001-1.035) Urine Protein (Negative) Urine Glucose (UA) (Negative) Urine Ketones (Negative) Urine Blood (Negative) Urine Nitrite (Negative) Urine Bilirubin (Negative) Urine Urobilinogen (<2.0) mg/dL Ur Leukocyte Esterase (Negative) Urine RBC (0-5) /hpf Urine WBC (0-5) /hpf Ur Squamous Epith Cells (0-4) /hpf Amorphous Sediment (None) /hpf Urine Bacteria (None) /hpf Hyaline Casts (0-2) /lpf Granular Casts (0) /lpf Urine Mucus (None) /hpf Influenza Type A RNA Not Detected (Not Detectd) Influenza Type B (PCR) Not Detected (Not Detectd) 12/19/18 Range/Units 05:41 WBC (3.8-10.6) k/uL RBC (3.80-5.40) m/uL Hgb (11.4-16.0) gm/dL Hct (34.0-46.0) % MCV (80.0-100.0) fL MCH (25.0-35.0) pg MCHC (31.0-37.0) g/dL RDW (11.5-15.5) % Plt Count (150-450) k/uL Neutrophils % % Lymphocytes % % Monocytes % % Eosinophils % % Basophils % % Neutrophils # (1.3-7.7) k/uL Lymphocytes # (1.0-4.8) k/uL Monocytes # (0-1.0) k/uL Eosinophils # (0-0.7) k/uL Basophils # (0-0.2) k/uL PT (9.0-12.0) sec INR (<1.2) APTT (22.0-30.0) sec Sodium (137-145) mmol/L Potassium (3.5-5.1) mmol/L Chloride (98-107) mmol/L Carbon Dioxide (22-30) mmol/L Anion Gap mmol/L BUN (7-17) mg/dL Creatinine (0.52-1.04) mg/dL Est GFR (CKD-EPI)AfAm (>60 ml/min/1.73 sqM) Est GFR (CKD-EPI)NonAf (>60 ml/min/1.73 sqM) Glucose (74-99) mg/dL Plasma Lactic Acid Homer (0.7-2.0) mmol/L Calcium (8.4-10.2) mg/dL Total Bilirubin (0.2-1.3) mg/dL AST (14-36) U/L ALT (9-52) U/L Alkaline Phosphatase (38-126) U/L CK-MB (CK-2) (0.0-2.4) ng/mL Troponin I (0.000-0.034) ng/mL Total Protein (6.3-8.2) g/dL Albumin (3.5-5.0) g/dL Urine Color Yellow Urine Appearance Cloudy H (Clear) Urine pH 6.0 (5.0-8.0) Ur Specific [place] 1.021 (1.001-1.035) Urine Protein 1+ H (Negative) Urine Glucose (UA) Negative (Negative) Urine Ketones Negative (Negative) Urine Blood Small H (Negative) Urine Nitrite Negative (Negative) Urine Bilirubin Negative (Negative) Urine Urobilinogen <2.0 (<2.0) mg/dL Ur Leukocyte Esterase Large H (Negative) Urine RBC 18 H (0-5) /hpf Urine WBC 19 H (0-5) /hpf Ur Squamous Epith Cells 1 (0-4) /hpf Amorphous Sediment Rare H (None) /hpf Urine Bacteria Rare H (None) /hpf Hyaline Casts 54 H (0-2) /lpf Granular Casts 1 (0) /lpf Urine Mucus Moderate H (None) /hpf Influenza Type A RNA (Not Detectd) Influenza Type B (PCR) (Not Detectd) - EKG Data -: EKG Interpreted by [place] EKG shows normal: sinus rhythm, intervals (Normal) Rate: tachycardia (Rate proximally 137 bpm) Interpretation: other (Possible old inferior infarct.) Critical Care Time Critical Care Time: Yes (35 minutes) Disposition Clinical Impression: Addisons disease, Sepsis, Lactic acidosis Disposition: ADMITTED IP TO THIS [facility] Condition: Serious Is patient prescribed a controlled substance at d/c from ED?: No Referrals: None,Stated [Primary Care Provider] - 1-2 days
[2018-12-19] MEDS ORDERED: ONDANSETRON 4 MG/2 ML VIAL IVP STA (04:25)
[2018-12-19 04:33] LABS: Basophils # (A) 0.4 k/uL (0-0.2); Basophils % (A) 2 %; Eosinophils # (A) 1.2 k/uL (0-0.7); Eosinophils % (A) 6 %; HCT 48.1 % (34.0-46.0); HGB 15.5 gm/dL (11.4-16.0); Lymphocytes # (A) 0.6 k/uL (1.0-4.8); Lymphocytes % (A) 3 %; MCH 29.7 pg (25.0-35.0); MCHC 32.2 g/dL (31.0-37.0); MCV 92.4 fL (80.0-100.0); Mean Platelet Volume 9.3; Monocytes # (A) 0.8 k/uL (0-1.0); Monocytes % (A) 4 %; Neutrophils # (A) 15.5 k/uL (1.3-7.7); Neutrophils % (A) 83 %; Platelet Count 333 k/uL (150-450); RBC 5.21 m/uL (3.80-5.40); RDW 14.4 % (11.5-15.5); WBC 18.7 k/uL (3.8-10.6)
[2018-12-19 04:42] LABS: INR 1.2 (<1.2)
[2018-12-19 04:48] LABS: Albumin 4.4 g/dL (3.5-5.0); Calcium 9.9 mg/dL (8.4-10.2); Total Bilirubin 0.8 mg/dL (0.2-1.3); Total Protein 7.3 g/dL (6.3-8.2)
[2018-12-19 04:49] LABS: Partial Thromboplastin Time 22.1 sec (22.0-30.0)
[2018-12-19] MEDS ORDERED: LEVOFLOXACIN 750MG-D5W PMX 750 MG in DEXTROSE/WATER 1 150ML.BAG IVPB STA (05:16)
[2018-12-19] MEDS ORDERED: LEVOFLOXACIN 750MG-D5W PMX 750 MG in DEXTROSE/WATER 1 150ML.BAG IVPB ONE (05:17)
[2018-12-19 05:21] LABS: Troponin I 0.168 ng/mL (0.000-0.034)
--- NOTE | 2018-12-19 05:24 | XR ---
EXAM: XR Chest, 2 Views CLINICAL HISTORY: Fever TECHNIQUE: Frontal and lateral views of the chest. COMPARISON: No relevant prior studies available. FINDINGS: Lungs: Unremarkable. No consolidation. Pleural space: Unremarkable. No pneumothorax. Heart: Unremarkable. No cardiomegaly. Mediastinum: Unremarkable. Bones/joints: Postsurgical changes within the spine. IMPRESSION: No acute findings.
[2018-12-19 06:12] LABS: Amorphous Sediment,Urine Rare /hpf; Appearance,Urine Cloudy (Clear); Bacteria,Urine Rare /hpf; Bilirubin,Urine Negative (Negative); Blood,Urine Small (Negative); Color,Urine Yellow; Glucose,Urine (UA) Negative (Negative); Granular Casts,Urine 1 /lpf (0); Hyaline Casts,Urine 54 /lpf (0-2); Ketones,Urine Negative (Negative); Leukocyte Esterase,Urine Large (Negative); Mucus,Urine Moderate /hpf; Nitrite,Urine Negative (Negative); Protein,Urine 1+ (Negative); RBC,Urine 18 /hpf (0-5); Specific Gravity,Urine 1.021 (1.001-1.035); Squamous Epithelial Cell,Urine 1 /hpf (0-4); Urobilinogen,Urine <2.0 mg/dL (<2.0); WBC,Urine 19 /hpf (0-5)
[2018-12-19] MEDS ORDERED: FLUTICASONE 110 MCG INHALER INHALATION PRN (06:23)
[2018-12-19] MEDS ORDERED: ALBUTEROL NEBULIZED 2.5 MG/3 ML INHALATION PRN (06:23)
[2018-12-19] MEDS ORDERED: TRIMETHOBENZAMIDE 300 MG CAP PO PRN (06:23)
[2018-12-19] MEDS ORDERED: PRASTERONE 25 MG PO SCH (06:30)
[2018-12-19] MEDS ORDERED: MORPHINE SULFATE 4 MG/ML SYRINGE IV STA (06:59)
[2018-12-19] MEDS ORDERED: SODIUM CHLORIDE 0.9% 500 ML 500 ML IV STA (07:03)
--- NOTE | 2018-12-19 08:12 | CT ---
EXAMINATION TYPE: CT lumbar spine wo con DATE OF EXAM: 12/19/2018 7:47 AM COMPARISON: CT abdomen and pelvis November 15, 2017. HISTORY: Fall x 2. Lumbar tenderness. History of prior back surgery. CT DLP: 1850.4 mGycm Automated exposure control for dose reduction was used. Unenhanced CT of the lumbar spine was performed. Bone and soft tissue window settings are submitted as well as coronal and sagittal reconstructions. There is redemonstration of 5 lumbar type vertebra. There is persistent dextroconvex scoliosis center ed at L3 level. There are posterior interpedicular rods and screws transfixing T12 through the L5 lev els bilaterally. There is hyperdense disc material at L1-L2 through the L3-L4 levels along left aspec t again seen. There is loss of normal lumbar lordosis on sagittal images. There is persistent severe grade 1 anterolisthesis L4 on L5. Advanced disc space narrowing L4-L5 level is redemonstrated. Vacuum disc phenomenon L5-S1 level again seen. Moderate to advanced disc space narrowing T11-T12 level rede monstrated. Moderate disc space narrowing with disc calcification T10-T11 level redemonstrated. No ac [place] fracture or dislocation is seen. Review of axial images shows multilevel left-sided laminectomy defects with scar tissue. There is mul tilevel moderate to severe facet arthropathy in the mid to lower lumbar spine. IMPRESSION: Extensive surgical change without acute fracture or dislocation. No significant change fr om November 15, [address] abdomen and pelvis report will be dictated separately. Please refer to this report for all findings outside lumbar spine.
--- NOTE | 2018-12-19 08:24 | CT ---
EXAMINATION TYPE: CT abdomen pelvis wo con DATE OF EXAM: 12/19/2018 HISTORY: Sepsis and vomiting. Diverticulitis. CT DLP: 1850.4 mGycm. Automated Exposure Control for Dose Reduction was Utilized. TECHNIQUE: CT scan of the abdomen and pelvis is performed without oral or IV contrast. COMPARISON: CT abdomen and pelvis November 15, 2017 FINDINGS: Within the limitations of a non-contrast study, the following observations are made. LUNG BASES: Linear opacities both lung bases favor bibasilar scarring and/or atelectasis.. LIVER/GB: Cholecystectomy clips are redemonstrated. PANCREAS: Mild fat replaced atrophy of the distal pancreatic body and tail there is redemonstrated. SPLEEN: No significant abnormality is seen. ADRENALS: No significant abnormality is seen. KIDNEYS: No renal calculi or hydronephrosis is noted bilaterally. BOWEL: Evaluation bowel suboptimal secondary to lack of enteric contrast. Fluid-filled prominent dist al esophagus noted. Correlate for underlying achalasia or esophageal dysmotility Stomach is poorly di stended. Normal-appearing appendix from the right lower quadrant. Fluid-filled right colon. Scattered colonic diverticula. Diverticula are more prominent in the sigmoid colon where there is [id number] rate wall thickening and perhaps minimal fat stranding in the pelvis. Fecal filled prominence of the rectum. Surgical changes to mid small bowel loop anterior lower abdomen just left of midline coronal image 30. GENITAL ORGANS: Uterus is surgically absent. LYMPH NODES: No greater than 1cm abdominal or pelvic lymph nodes are appreciated. OSSEOUS STRUCTURES: Please refer to same day CT lumbar spine report for complete details on the lumba r spine. Moderate narrowing of both hip joints. OTHER: Persistent small to moderate-sized right inguinal hernia now containing fat. IMPRESSION: 1. Colonic diverticulosis with perhaps mild or early uncomplicated acute diverticulitis involving the mid sigmoid colon. No well-formed fluid collection or abscess identified.
[2018-12-19] MEDS ORDERED: metroNIDAZOLE-NS PMX 500 MG in SALINE 1 100ML.BAG IVPB STA (08:33)
[2018-12-19] MEDS ORDERED: CORTISONE ACETATE 25 MG PO SCH (09:00)
[2018-12-19] MEDS ORDERED: MELOXICAM 7.5 MG TAB PO SCH (09:00)
[2018-12-19 09:35] LABS: Glucose,Whole Blood 173 mg/dL (75-99)
[2018-12-19] MEDS ORDERED: HYDROCORTISONE SUCCINATE 100 MG/2 ML VIAL IV SCH (10:00)
[2018-12-19] MEDS: traZODone HCL 50 MG TAB PO SCH ×2 (10:18→20:31)
[2018-12-19] MEDS: FLUDROCORTISONE 0.1 MG TAB PO SCH (10:18)
[2018-12-19] MEDS: METOPROLOL SUCCINATE (ER) 100 MG TAB.ER.24H PO SCH (10:19)
[2018-12-19] MEDS: FAMOTIDINE 20 MG/2 ML VIAL IV SCH (10:21)
[2018-12-19] MEDS: MONTELUKAST 10 MG TAB PO SCH (10:21)
[2018-12-19] MEDS: LEVOTHYROXINE 100 MCG TAB PO SCH (10:23)
--- NOTE | 2018-12-19 11:09 | P.EN ---
I came to see the patient, she was fully awake and oriented. She wanted to switch to service to Dr. Del Angel/ group because he is going to be her PCP soon. Discussed with staff and informed.
[2018-12-19 11:43] LABS: Glucose,Whole Blood 173 mg/dL (75-99)
[2018-12-19] MEDS: SODIUM CHLORIDE 0.9% 1,000 ML IV SCH (12:55)
--- NOTE | 2018-12-19 12:55 | CT ---
EXAMINATION TYPE: CT brain wo con DATE OF EXAM: 12/19/2018 HISTORY: Weakness CT DLP: 1099.4 mGycm. Automated Exposure Control for Dose Reduction was Utilized. TECHNIQUE: CT scan of the head is performed without contrast. COMPARISON: None. FINDINGS: There is no acute intracranial hemorrhage or midline shift identified. There is diffuse v entricular and sulcal prominence consistent with diffuse age-related cerebral atrophy. Degree of atro phy slightly more prominent over the bilateral frontal lobes. There is low-attenuation in the perive ntricular white matter consistent with chronic small vessel ischemic change. There is near complete o pacification of sphenoid sinuses bilaterally. There is mucosal thickening and patchy opacification po sterior ethmoid sinuses bilaterally. Globes are intact bilaterally. IMPRESSION: No acute intracranial hemorrhage or midline shift. There is mild to moderate diffuse ce rebral atrophy slightly more prominent over bilateral frontal lobes and mild chronic small vessel isc hemic change . Acute on chronic paranasal sinus disease is thought present. Correlate clinically.
--- NOTE | 2018-12-19 13:33 | P.HPIM ---
History of Present Illness H&P Date: 12/19/18 Chief Complaint: UTI with sepsis . This is 5-year-old female with a previous medical history significant for [place] disease, hypertension and hypertensive cardio vascular disease, hypothyroidism, history of ALLERGIC rhinitis, history of diabetes mellitus type 2 with diabetic polyneuropathy, history of degenerative disc disease of the lumbar spine status post surgical intervention, history of volvulus in the past with bowel obstruction about a year ago status post surgery, patient stated that she was in her usual state of health about 2 weeks ago when she went to her primary care physician she was complaining of not feeling well with increased pain in her ears and sinuses and she had a cold symptoms prior to that she ended up going to [facility] where they gave her Bactrim double strength twice a day for one week she took the first pill on Monday she developed to have an increased abdominal pain associated with nausea vomiting and diarrhea and she grace s not been eating or drinking much her temperature went up to 101 patient tried to walk with her walker and she ended up falling backward because of extreme weakness in both lower extremities, her had cold her twice and she ended up coming to the ER at [facility] where she was found to have sepsis with urinary tract infection she was hypotensive did receive IV fluid in the form of normal saline and she was admitted to the intensive care unit as a selective overflow, she was started on IV antibiotic in the form of Levaquin as well as metronidazole after she had a computed tomography scan of the abdomen and pelvis that did show possible transverse colon diverticulitis and along with a urinary tract infection she was started on IV anabiotic as such and infectious disease consultation was obtained, blood cultures were obtained, as well as urine culture computed tomography scan of the lumbar spine did not show any evidence of abscess did show significant extensive surgical changes, computed tomography scan of the brain was pending computed tomography scan of the abdomen and pelvis didn't show possible diverticulitis, patient was seen in intensive care unit she appears to be better her vital signs are stable, and her blood pressure is 122/72 her heart rate is 90 her oxygen level 96% on 2 L nasal cannula. Review of Systems Constitutional: Reports chronic pain, Reports weakness, Denies anorexia, Denies fever, Denies lethargy, Denies malaise Eyes: denies blurred vision, denies bulging eye, denies decreased vision, denies diplopia Ears: deny: decreased hearing Ears, nose, mouth and throat: Denies dysphagia, Denies neck lump, Denies swelling in throat, Denies sore throat Cardiovascular: Denies chest pain, Denies decreased exercise tolerance, Denies lightheadedness, Denies rapid heart beat, Denies shortness of breath, Denies syncope Respiratory: Denies congestion, Denies cough with sputum, Denies home oxygen, Denies pain, Denies sleep apnea, Denies snoring, Denies wheezing Gastrointestinal: Reports abdominal pain, Reports diarrhea, Reports loss of appetite, Reports nausea, Reports vomiting, Denies BRBPR, Denies change in bowel habits, Denies coffee ground emesis, Denies early satiety, Denies excessive gas, Denies heartburn, Denies melena Genitourinary: Reports dysuria, Denies hematuria Musculoskeletal: Reports gait dysfunction, Reports muscle weakness, Denies myalgias Musculoskeletal: absent: ankle pain, ankle stiffness, ankle swelling, elbow pain, elbow stiffness, elbow swelling, foot pain, foot stiffness, foot swelling, hand pain, hand stiffness, hand swelling, hip pain, hip stiffness, hip swelling, knee pain, knee stiffness, knee swelling, shoulder pain, shoulder stiffness, shoulder swelling, wrist pain, wrist stiffness, wrist swelling Integumentary: Denies pruritus, Denies rash Neurological: Reports gait dysfunction, Reports paresthesias, Reports weakness, Denies change in speech, Denies confusion, Denies convulsions, Denies double vision, Denies numbness Psychiatric: Reports anxiety, Reports depression, Denies sadness/tearfulness, Denies sleep disturbances, Denies suicidal ideation Endocrine: Denies fatigue, Denies weight change Past Medical History Past Medical History: Asthma, Cancer, Diabetes Mellitus, Eye Disorder, GERD/R eflux, Hypertension, Osteoarthritis (OA), Pneumonia, Thyroid Disorder Additional Past Medical History / Comment(s): NIDDM type II-diet controlled, neuropathy bilateral feet, current ulcer R great toe being treated by dematologist, Wei's disease, ischemic necrosis small bowel/small bowel volvulus, frequent diarrhea, mitral valve prolapse, esophageal echalasia, dysphagia, IBS, diverticular disease, hiatal hernia, UTIS-frequent, bronchitis, chronic low back pain with ambulation, arthritis in multiple joints, Potter's corneal dystrophy bilaterally, hypothyroid, 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 History of Any Multi-Drug Resistant Organisms: None Reported Past Surgical History: Adenoidectomy, Back Surgery, Cholecystectomy, Hysterectomy, Joint Replacement, Tonsillectomy Additional Past Surgical History / Comment(s): Skin cancer removals, back surgery x2-has cages/rods, L total knee arthroplasty, bilateral feet had screws in place but R foot's were removed, EGDs, colonoscopies, bilateral cataract removals/lens implants. Past Anesthesia/Blood Transfusion Reactions: Previous Problems w/ Anesthesia, Motion Sickness Additional Past Anesthesia/Blood Transfusion Reaction / Comment(s): "FELT LIKE i WAS CLIMBING [place] AFTER ANESTHESIA IN [place]" Smoking Status: Never smoker - Past Family History Mother Family Medical History: Coronary Artery Disease (CAD), Diabetes Mellitus Additional Family Medical History / Comment(s): Mother at age 87 from diabetes and coronary artery disease. Father Family Medical History: No Reported History Additional Family Medical History / Comment(s): Father at age 89 few weeks after his . Brother(s) Additional Family Medical History / Comment(s): She has 2 brothers and one from coronary artery disease and the other is alive with no major medical problems. Patient has 2 children with no major medical problems. Medications and Allergies Home Medications Medication Instructions Recorded Confirmed Type Cholecalciferol [Vitamin D3 (25 1,000 unit PO PC-BRKFST 08/30/17 12/19/18 History Mcg = 1000 Iu)] Cortisone Acetate [Cortone] 12.5 mg PO HS 08/30/17 12/19/18 History Cortisone Acetate [Cortone] 25 mg PO BID@0600,1200 08/30/17 12/19/18 History Dicyclomine [Bentyl] 10 mg PO BID PRN 08/30/17 12/19/18 History Diphenox-Atrop 2.5-0.025 mg 1 tab PO QID PRN 08/30/17 12/19/18 History [Lomotil] Fexofenadine HCl 60 mg PO DAILY 08/30/17 12/19/18 History Fludrocortisone [Florinef] 0.1 mg PO DAILY 08/30/17 12/19/18 History Fluticasone Propionate [Flovent 3 puff INHALATION RT-BID PRN 08/30/17 12/19/18 H istory Hfa 110mcg] Levothyroxine Sodium [Levoxyl] 200 mcg PO DAILY 08/30/17 12/19/18 History Meloxicam [Mobic] 7.5 mg PO DAILY 08/30/17 12/19/18 History Prasterone (Dhea) [Dhea 25] 25 mg PO WE 08/30/17 12/19/18 History Solumedrol 40 mg INJ DAILY PRN 08/30/17 12/19/18 History Trimethobenzamide [Tigan] 300 mg PO BID PRN 08/30/17 12/19/18 History tiZANidine HCL 2 mg PO HS 08/30/17 12/19/18 History traZODone HCL 100 mg PO HS 08/30/17 12/19/18 History Levalbuterol Tartrate [Xopenex Hfa 2 puff INHALATION RT-Q6H PRN 11/15/17 12/19/18 History Inhaler] Montelukast [Singulair] 10 mg PO DAILY 11/15/17 12/19/18 History Diflucan (Unknown Dose) 1 tab PO DAILY PRN 12/19/18 12/19/18 History Levothyroxine Sodium [Levoxyl] 25 mcg PO WE 12/19/18 12/19/18 History Metoprolol Tartrate [Lopressor] 100 mg PO PC-BRKFST 12/19/18 12/19/18 History Allergies Allergy/AdvReac Type Severity Reaction Status Date / Time adhesive tape Allergy Rash/Hives Verified 12/19/18 07:18 Penicillins Allergy Anaphylaxis Verified 12/19/18 07:18 cephalexin [From Keflex] AdvReac Nausea & Verified 12/19/18 07:18 Vomiting erythromycin base AdvReac Nausea & Verified 12/19/18 07:18 Vomiting Tetracyclines AdvReac Nausea & Verified 12/19/18 07:18 Vomiting Physical Exam Vitals: Vital Signs Temp Pulse Resp BP Pulse Ox 12/19/18 09:04 98.1 F 99 16 104/59 98 12/19/18 08:57 98.1 F 99 16 104/59 98 12/19/18 07:00 98.1 F 101 H 13 96/53 97 12/19/18 06:47 99 F 105 H 18 80/47 96 12/19/18 04:41 100 F H 134 H 20 124/71 98 12/19/18 03:56 100.2 F H 130 H 20 126/72 98 Intake and Output 12/18/18 12/19/18 12/19/18 22:59 06:59 14:59 Other: Weight 86.183 kg - Constitutional General appearance: no acute distress, obese - EENT Eyes: anicteric sclerae, EOMI, PERRLA, no ptosis, no scleral icterus, normal appearance ENT: hearing grossly normal, NA/AT, normal oropharynx, thrush Ears: bilateral: normal - Neck Neck: no lymphadenopathy, normal ROM, no rigidity, no stridor, no thyromegaly Carotids: bilateral: upstroke normal Thyroid: bilateral: normal size - Respiratory Respiratory: bilateral: diminished, negative: dullness, rales, rhonchi, wheezing , prolonged expiration - Cardiovascular Rhythm: regular Heart sounds: normal: S1, S2 Abnormal Heart Sounds: no systolic murmur, no S3 Gallop, no S4 Gallop - Gastrointestinal General gastrointestinal: normal bowel sounds, soft, no splenomegaly, no tenderness, no umbilical hernia, no ventral hernia - Integumentary Integumentary: normal, normal turgor - Neurologic Neurologic: CNII-XII intact, focal deficits (Bilateral lower extremity weakness left more than right.) - Musculoskeletal Musculoskeletal: no gait normal, left sided weakness - Psychiatric Psychiatric: A&O x's 3, appropriate affect, intact judgment & insight Results CBC & Chem 7: 12/19/18 04:27 12/19/18 04:27 Labs: Abnormal Lab Results - Last 24 Hours (Table) 12/19/18 12/19/18 12/19/18 Range/Units 04:27 04:27 04:27 WBC 18.7 H (3.8-10.6) k/uL Hct 48.1 H (34.0-46.0) % Neutrophils # 15.5 H (1.3-7.7) k/uL Lymphocytes # 0.6 L (1.0-4.8) k/uL Eosinophils # 1.2 H (0-0.7) k/uL Basophils # 0.4 H (0-0.2) k/uL INR (<1.2) Carbon Dioxide 20 L (22-30) mmol/L BUN 18 H (7-17) mg/dL Creatinine 1.27 H (0.52-1.04) mg/dL Glucose 157 H (74-99) mg/dL POC Glucose (mg/dL) (75-99) mg/dL Plasma Lactic Acid Homer (0.7-2.0) mmol/L AST 56 H (14-36) U/L Troponin I 0.168 H* (0.000-0.034) ng/mL Urine Appearance (Clear) Urine Protein (Negative) Urine Blood (Negative) Ur Leukocyte Esterase (Negative) Urine RBC (0-5) /hpf Urine WBC (0-5) /hpf Amorphous Sediment (None) /hpf Urine Bacteria (None) /hpf Hyaline Casts (0-2) /lpf Urine Mucus (None) /hpf 12/19/18 12/19/18 12/19/18 Range/Units 04:27 04:27 05:41 WBC (3.8-10.6) k/uL Hct (34.0-46.0) % Neutrophils # (1.3-7.7) k/uL Lymphocytes # (1.0-4.8) k/uL Eosinophils # (0-0.7) k/uL Basophils # (0-0.2) k/uL INR 1.2 H (<1.2) Carbon Dioxide (22-30) mmol/L BUN (7-17) mg/dL Creatinine (0.52-1.04) mg/dL Glucose (74-99) mg/dL POC Glucose (mg/dL) (75-99) mg/dL Plasma Lactic Acid Homer 5.9 H* (0.7-2.0) mmol/L AST (14-36) U/L Troponin I (0.000-0.034) ng/mL Urine Appearance Cloudy H (Clear) Urine Protein 1+ H (Negative) Urine Blood Small H (Negative) Ur Leukocyte Esterase Large H (Negative) Urine RBC 18 H (0-5) /hpf Urine WBC 19 H (0-5) /hpf Amorphous Sediment Rare H (None) /hpf Urine Bacteria Rare H (None) /hpf Hyaline Casts 54 H (0-2) /lpf Urine Mucus Moderate H (None) /hpf 12/19/18 12/19/18 12/19/18 Range/Units 09:24 11:31 11:50 WBC (3.8-10.6) k/uL Hct (34.0-46.0) % Neutrophils # (1.3-7.7) k/uL Lymphocytes # (1.0-4.8) k/uL Eosinophils # (0-0.7) k/uL Basophils # (0-0.2) k/uL INR (<1.2) Carbon Dioxide (22-30) mmol/L BUN (7-17) mg/dL Creatinine (0.52-1.04) mg/dL Glucose (74-99) mg/dL POC Glucose (mg/dL) 173 H 173 H (75-99) mg/dL Plasma Lactic Acid Homer (0.7-2.0) mmol/L AST (14-36) U/L Troponin I 0.068 H* (0.000-0.034) ng/mL Urine Appearance (Clear) Urine Protein (Negative) Urine Blood (Negative) Ur Leukocyte Esterase (Negative) Urine RBC (0-5) /hpf Urine WBC (0-5) /hpf Amorphous Sediment (None) /hpf Urine Bacteria (None) /hpf Hyaline Casts (0-2) /lpf Urine Mucus (None) /hpf Microbiology - Last 24 Hours (Table) 12/19/18 05:41 Urine Culture - Preliminary Urine,Catheterized Thrombosis Risk Factor Assmnt - DVT/VTE Prophylaxis DVT/VTE Prophylaxis: Pharmacologic Prophylaxis ordered, Mechanical Prophylaxis ordered - Choose All That Apply Any of the Below Risk Factors Present?: Yes Each Factor Represents 1 point: Obesity (BMI >25), Sepsis (< 1month) Other Risk Factors: Yes Each Risk Factor Represents 2 Points: Age 61-74 years, Malignancy Other congenital or acquired thrombophilia - If yes, enter type in comment: No Thrombosis Risk Factor Assessment Total Risk Factor Score: 6 Thrombosis Risk Factor Assessment Level: High Risk Assessment and Plan Assessment: Assessment and plan: 1. UTI with sepsis. Continue IV antibiotic in the form of Levaquin 500 mg piggyback every 24 hours, urine culture, blood culture, IV fluid in the form of normal saline 1 25 mL an hour, ID consult. 2. Possible diverticulitis of the transverse colon. Continue IV anabiotic Levaquin 500 mg IV piggyback every 24 hours as well as metronidazole 500 mg IV piggyback every 8 hours. 3. Hypertension likely related to sepsis. Continue IV fluid resuscitation, continue IV antibiotic, monitor the blood pressure very closely. 4. Wei disease. Solu-Medrol 60 mg IV push every 8 hours. Continue with Florinef 0.1 mg orally once every day. 5. Bilateral lower extremity weakness with left more than right likely related to significant spine disease with surgical intervention. Computed tomography scan did not show any evidence of any epidural abscess. Continue to monitor the patient very closely him a computed tomography scan of the brain was obtained to complete the evaluation. Patient will need to have an EMG nerve conduction study as an outpatient. 6. Hypothyroidism. Continue patient on Synthroid 200 g orally once every day. 7. Hypertension. Continue patient on metoprolol 100 mg orally once every day. 8. Diabetes mellitus type 2. Diet-controlled. 9. ALLERGIC rhinitis. Stable. 10. Elevated troponin likely related to sepsis. Repeat another set of troponin, echocardiogram, cardiology consult. 11. DVT prophylaxis. Lovenox 40 mg subcutaneously every 24 hours. 12. GI prophylaxis. Continue Pepcid. 13. Admit to inpatient. Estimate length of stay 2 midnights. 14. Patient is full code.
--- NOTE | 2018-12-19 14:57 | P.CRDCN ---
History of Present Illness Consult date: 12/19/18 History of present illness: This is a 68-year-old female with history of Miner's disease, hypertension and hypertensive cardiac vascular disease, diabetes mellitus and multiple other medical problems was admitted to the hospital following a fall at home. Apparently recently she developed sinusitis and was seen in [facility] and was treated with Bactrim. She developed subsequently nausea vomiting abdominal pain and diarrhea. Currently she is being treated for possible UTI and also diverticulitis. A cardiac consult is initiated because of abnormal troponin. H er creatinine was 1.27. Troponins values are borderline elevated. EKG showed sinus rhythm and sinus tachycardia. Patient did not have any chest pain. Didn't have any dyspnea. It appears that his troponin elevation is most probably related to sepsis and multiple other medical problems including hypertension and renal failure. I don't think we are dealing with acute coronary syndrome. Patient already had an echocardiogram which will be reviewed. Unless there is any segmental wall motion defects on the echocardiogram, no further workup is suggested at this time Review of Systems As per the chart Past Medical History Past Medical History: Asthma, Cancer, Diabetes Mellitus, Eye Disorder, GERD/Reflux, Hypertension, Osteoarthritis (OA), Pneumonia, Thyroid Disorder Additional Past Medical History / Comment(s): NIDDM type II-diet controlled, neuropathy bilateral feet, current ulcer R great toe being treated by dematologist, Wei's disease, ischemic necrosis small bowel/small bowel volvulus, frequent diarrhea, mitral valve prolapse, esophageal echalasia, dysphagia, IBS, diverticular disease, hiatal hernia, UTIS-frequent, bronchitis, chronic low back pain with ambulation, arthritis in multiple joints, Potter's corneal dystrophy bilaterally, hypothyroid, 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 History of Any Multi-Drug Resistant Organisms: None Reported Past Surgical History: Adenoidectomy, Back Surgery, Cholecystectomy, Hys terectomy, Joint Replacement, Tonsillectomy Additional Past Surgical History / Comment(s): Skin cancer removals, back surgery x2-has cages/rods, L total knee arthroplasty, bilateral feet had screws in place but R foot's were removed, EGDs, colonoscopies, bilateral cataract r emovals/lens implants. Past Anesthesia/Blood Transfusion Reactions: Previous Problems w/ Anesthesia, Motion Sickness Additional Past Anesthesia/Blood Transfusion Reaction / Comment(s): "FELT LIKE i WAS CLIMBING [place] AFTER ANESTHESIA IN [place]" Smoking Status: Never smoker - Past Family History Mother Family Medical History: Coronary Artery Disease (CAD), Diabetes Mellitus Additional Family Medical History / Comment(s): Mother at age 87 from diabetes and coronary artery disease. Father Family Medical History: No Reported History Additional Family Medical History / Comment(s): Father at age 89 few weeks after his . Brother(s) Additional Family Medical History / Comment(s): She has 2 brothers and one from coronary artery disease and the other is alive with no major medical problems. Patient has 2 children with no major medical problems. Medications and Allergies Home Medications Medication Instructions Recorded Confirmed Type Cholecalciferol [Vitamin D3 (25 1,000 unit PO PC-BRKFST 08/30/17 12/19/18 History Mcg = 1000 Iu)] Cortisone Acetate [Cortone] 12.5 mg PO HS 08/30/17 12/19/18 History Cortisone Acetate [Cortone] 25 mg PO BID@0600,1200 08/30/17 12/19/18 History Dicyclomine [Bentyl] 10 mg PO BID PRN 08/30/17 12/19/18 History Diphenox-Atrop 2.5-0.025 mg 1 tab PO QID PRN 08/30/17 12/19/18 History [Lomotil] Fexofenadine HCl 60 mg PO DAILY 08/30/17 12/19/18 History Fludrocortisone [Florinef] 0.1 mg PO DAILY 08/30/17 12/19/18 History Fluticasone Propionate [Flovent 3 puff INHALATION RT-BID PRN 08/30/17 12/19/18 History Hfa 110mcg] Levothyroxine Sodium [Levoxyl] 200 mcg PO DAILY 08/30/17 12/19/18 History Meloxicam [Mobic] 7.5 mg PO DAILY 08/30/17 12/19/18 History Prasterone (Dhea) [Dhea 25] 25 mg PO WE 08/30/17 12/19/18 History Solumedrol 40 mg INJ DAILY PRN 08/30/17 12/19/18 History Trimethobenzamide [Tigan] 300 mg PO BID PRN 08/30/17 12/19/18 History tiZANidine HCL 2 mg PO HS 08/30/17 12/19/18 History traZODone HCL 100 mg PO HS 08/30/17 12/19/18 History Levalbuterol Tartrate [Xopenex Hfa 2 puff INHALATION RT-Q6H PRN 11/15/17 12/19/18 History Inhaler] Montelukast [Singulair] 10 mg PO DAILY 11/15/17 12/19/18 History Diflucan (Unknown Dose) 1 tab PO DAILY PRN 12/19/18 12/19/18 History Levothyroxine Sodium [Levoxyl] 25 mcg PO WE 12/19/18 12/19/18 History Metoprolol Tartrate [Lopressor] 100 mg PO PC-BRKFST 12/19/18 12/19/18 History Allergies Allergy/AdvReac Type Severity Reaction Status Date / Time adhesive tape Allergy Rash/Hives Verified 12/19/18 07:18 Penicillins Allergy Anaphylaxis Verified 12/19/18 07:18 cephalexin [From Keflex] AdvReac Nausea & Verified 12/19/18 07:18 Vomiting erythromycin base AdvReac Nausea & Verified 12/19/18 07:18 Vomiting Tetracyclines AdvReac Nausea & Verified 12/19/18 07:18 Vomiting Physical Exam Vitals: Vital Signs Temp Pulse Resp BP Pulse Ox 12/19/18 09:04 98.1 F 99 16 104/59 98 12/19/18 08:57 98.1 F 99 16 104/59 98 12/19/18 07:00 98.1 F 101 H 13 96/53 97 12/19/18 06:47 99 F 105 H 18 80/47 96 12/19/18 04:41 100 F H 134 H 20 124/71 98 12/19/18 03:56 100.2 F H 130 H 20 126/72 98 Intake and Output 12/18/18 12/19/18 12/19/18 22:59 06:59 14:59 Other: Weight 86.183 kg GENERAL EXAM: Patient is alert and oriented and doesn't appear to be in any acute distress HEENT: Normocephalic. Normal reaction of pupils, equal size, normal range of extraocular motion. No erythema or exudates in the throat. NECK: No masses, no nuchal rigidity. CHEST: No chest wall deformity. LUNGS: Equal air entry with no crackles or wheeze. HEART: S1 and S2 normal with no audible mumurs or gallops. Regular rhythm, femorals equal on both sides.. ABDOMEN: Soft SKIN: No rashes CENTRAL NERVOUS SYSTEM: No focal deficits. EXTREMITIES: No cyanosis, clubbing or edema. Results 12/19/18 04:27 12/19/18 04:27 Cardiac Enzymes 12/19/18 12/19/18 12/19/18 Range/Units 04:27 04:27 11:50 AST 56 H (14-36) U/L CK-MB (CK-2) 2.0 (0.0-2.4) ng/mL Troponin I 0.168 H* 0.068 H* (0.000-0.034) ng/mL Coagulation 12/19/18 Range/Units 04:27 PT 12.0 (9.0-12.0) sec APTT 22.1 (22.0-30.0) sec CBC 12/19/18 Range/Units 04:27 WBC 18.7 H (3.8-10.6) k/uL RBC 5.21 (3.80-5.40) m/uL Hgb 15.5 (11.4-16.0) gm/dL Hct 48.1 H (34.0-46.0) % Plt Count 333 (150-450) k/uL Comprehensive Metabolic Panel 12/19/18 Range/Units 04:27 Sodium 138 (137-145) mmol/L Potassium 4.0 (3.5-5.1) mmol/L Chloride 101 (98-107) mmol/L Carbon Dioxide 20 L (22-30) mmol/L BUN 18 H (7-17) mg/dL Creatinine 1.27 H (0.52-1.04) mg/dL Glucose 157 H (74-99) mg/dL Calcium 9.9 (8.4-10.2) mg/dL AST 56 H (14-36) U/L ALT 35 (9-52) U/L Alkaline Phosphatase 95 (38-126) U/L Total Protein 7.3 (6.3-8.2) g/dL Albumin 4.4 (3.5-5.0) g/dL Current Medications Generic Name Dose Route Start Last Admin Trade Name Freq PRN Reason Stop Dose Admin Albuterol Sulfate 2.5 mg 12/19/18 06:23 Ventolin Nebulized INHALATION RT-Q6H PRN Shortness Of Breath Enoxaparin Sodium 40 mg 12/20/18 09:00 Lovenox SQ DAILY [facility] Famotidine 20 mg 12/19/18 09:00 12/19/18 10:21 Pepcid IV 20 mg DAILY [facility] Administration Fludrocortisone Acetate 0.1 mg 12/19/18 09:00 12/19/18 10:18 Florinef PO 0.1 mg DAILY [facility] Administration Fluticasone Propionate 3 puff 12/19/18 06:23 Flovent 110 Mcg Inhaler INHALATION RT-BID PRN Shortness Of Breath Levofloxacin 750 mg/ IV 150 mls @ 100 mls/hr 12/20/18 06:00 Solution IVPB Q24H [facility] Sodium Chloride 1,000 mls @ 125 mls/hr 12/19/18 11:45 12/19/18 12:55 Saline 0.9% IV 125 mls/hr .Q8H [facility]IAN Administration Metronidazole 500 mg/ IV 100 mls @ 100 mls/hr 12/19/18 16:00 Solution IVPB Q8HR [facility]RI[facility]IAN Levothyroxine Sodium 200 mcg 12/19/18 09:00 12/19/18 10:23 Synthroid PO 200 mcg DAILY@0630 [facility] Administration Methylprednisolone Sodium Succinate 60 mg 12/19/18 16:00 Solu-Medrol IV Q8HR [facility]IAN Metoprolol Succinate 100 mg 12/19/18 09:00 12/19/18 10:19 Toprol Xl PO 100 mg DAILY [facility]IAN Administration Montelukast Sodium 10 mg 12/19/18 09:00 12/19/18 10:21 Singulair PO 10 mg DAILY [facility] Administration Tizanidine HCl 2 mg 12/19/18 21:00 Zanaflex PO HS [facility] Trazodone HCl 50 mg 12/19/18 09:00 12/19/18 10:18 Desyrel PO 50 mg BID [facility] Administration Trimethobenzamide HCl 300 mg 12/19/18 06:23 Tigan PO BID PRN Nausea Intake and Output 12/18/18 12/19/18 12/19/18 22:59 06:59 14:59 Other: Weight 86.183 kg 12/19/18 04:27 12/19/18 04:27 EKG Interpretations (text) Sinus rhythm and sinus tachycardia Assessment and Plan (1) Elevated troponin Current Visit: Yes Status: Acute Code(s): R74.8 - ABNORMAL LEVELS OF OTHER SERUM ENZYMES SNOMED Code(s): 014570806 (2) Addisons disease Current Visit: Yes Status: Acute Code(s): E27.1 - PRIMARY ADRENOCORTICAL INSUFFICIENCY SNOMED Code(s): 211127419 (3) Hypertension Current Visit: No Status: Acute Code(s): I10 - ESSENTIAL (PRIMARY) HYPERTENSION SNOMED Code(s): 83398790 (4) Diverticulitis Current Visit: Yes Status: Acute Code(s): K57.92 - DVTRCLI OF INTEST, PART UNSP, W/O PERF OR ABSCESS W/O BLEED SNOMED Code(s): 110097265 (5) UTI (urinary tract infection) Current Visit: Yes Status: Acute Code(s): N39.0 - URINARY TRACT INFECTION, SITE NOT SPECIFIED SNOMED Code(s): 66338456 Plan: At this point, Her troponin elevation and critical picture are not consistent with acute coronary syndrome. We'll repeat echocardiogram. We'll follow her. No further cardiac workup at this point
[2018-12-19] MEDS: methylPREDNISolone SOD SUCCI 125 MG/2 ML VIAL IV SCH ×2 (16:03→23:53)
[2018-12-19] MEDS: metroNIDAZOLE-NS PMX 500 MG in SALINE 1 100ML.BAG IVPB SCH (16:03)
[2018-12-19] MEDS: AZTREONAM 2 GM in SODIUM CHLORIDE 0.9% 100 ML IVPB SCH ×2 (17:14→23:53)
[2018-12-19] MEDS ORDERED: CORTISONE ACETATE PO SCH (21:00)
[2018-12-19 21:22] LABS: Glucose,Whole Blood 222 mg/dL (75-99)
[2018-12-19] MEDS: INSULIN ASPART (NovoLOG) 100 UNIT/ML VIAL SQ SCH (22:11)
[2018-12-19 22:21] LABS: Glucose,Whole Blood 250 mg/dL (75-99)
[2018-12-20 00:05] LABS: Glucose,Whole Blood 181 mg/dL (75-99)
[2018-12-20] MEDS: metroNIDAZOLE-NS PMX 500 MG in SALINE 1 100ML.BAG IVPB SCH ×3 (01:16→16:04)
[2018-12-20] MEDS: SODIUM CHLORIDE 0.9% 1,000 ML IV SCH ×2 (04:34→04:48)
[2018-12-20] MEDS ORDERED: LEVOFLOXACIN 750MG-D5W PMX 750 MG in DEXTROSE/WATER 1 150ML.BAG IVPB SCH (06:00)
[2018-12-20 06:10] LABS: Basophils # (A) 0.1 k/uL (0-0.2); Basophils % (A) 0 %; Eosinophils # (A) 0.1 k/uL (0-0.7); Eosinophils % (A) 1 %; HCT 38.6 % (34.0-46.0); Lymphocytes # (A) 0.5 k/uL (1.0-4.8); Lymphocytes % (A) 3 %; MCH 29.8 pg (25.0-35.0); MCHC 31.6 g/dL (31.0-37.0); MCV 94.1 fL (80.0-100.0); Mean Platelet Volume 9.2; Monocytes # (A) 0.4 k/uL (0-1.0); Monocytes % (A) 2 %; Neutrophils % (A) 92 %; Platelet Count 207 k/uL (150-450); RDW 14.7 % (11.5-15.5); WBC 15.3 k/uL (3.8-10.6)
[2018-12-20 06:14] LABS: HGB 12.2 gm/dL (11.4-16.0)
[2018-12-20 06:21] LABS: ALT 40 U/L (9-52); AST 46 U/L (14-36); African American GFR (CKD) >90 (>60 ml/min/1.73 sqM); Alkaline Phosphatase 59 U/L (38-126); Anion Gap 10 mmol/L; Blood Urea Nitrogen 13 mg/dL (7-17); Calcium 8.8 mg/dL (8.4-10.2); Carbon Dioxide 20 mmol/L (22-30); Chloride 110 mmol/L (98-107); Glucose 158 mg/dL (74-99); Magnesium 2.2 mg/dL (1.6-2.3); Potassium 4.6 mmol/L (3.5-5.1); Sodium 140 mmol/L (137-145); Total Bilirubin 0.3 mg/dL (0.2-1.3); Total Protein 5.3 g/dL (6.3-8.2)
[2018-12-20] MEDS: LEVOTHYROXINE 100 MCG TAB PO SCH (06:55)
[2018-12-20] MEDS: INSULIN ASPART (NovoLOG) 100 UNIT/ML VIAL SQ SCH ×4 (07:01→20:50)
[2018-12-20 07:10] LABS: Glucose,Whole Blood 151 mg/dL (75-99)
[2018-12-20] MEDS ORDERED: INSULIN ASPART (NovoLOG) 100 UNIT/ML VIAL SQ SCH (07:30)
[2018-12-20] MEDS: AZTREONAM 2 GM in SODIUM CHLORIDE 0.9% 100 ML IVPB SCH ×3 (08:41→23:08)
[2018-12-20] MEDS: MONTELUKAST 10 MG TAB PO SCH (08:44)
[2018-12-20] MEDS: traZODone HCL 50 MG TAB PO SCH ×2 (08:44→20:50)
[2018-12-20] MEDS: ENOXAPARIN 40 MG/0.4 ML SYRINGE SQ SCH (08:44)
[2018-12-20] MEDS: methylPREDNISolone SOD SUCCI 125 MG/2 ML VIAL IV SCH (08:44)
[2018-12-20] MEDS: FLUDROCORTISONE 0.1 MG TAB PO SCH (08:44)
[2018-12-20] MEDS: FAMOTIDINE 20 MG/2 ML VIAL IV SCH (08:45)
[2018-12-20] MEDS: METOPROLOL SUCCINATE (ER) 100 MG TAB.ER.24H PO SCH (08:45)
--- NOTE | 2018-12-20 09:58 | P.PN ---
Subjective Progress Note Date: 12/20/18 This 68-year-old female is admitted to the hospital with a TIA and possible diverticulitis. Her troponin value was mildly elevated. Her creatinine is also mildly elevated. Patient did not have any symptoms of chest pain or shortness of breath. EKGs did not reveal any changes of ischemia. Patient has remained stable without any chest pain since admission. Her echocardiogram showed normal wall motion without any segmental wall motion defects. Based on those facts, it is felt that her troponin elevation is nonspecific and probably related to sepsis, hypotension and mild renal failure. No further cardiac workup at this time. We'll follow her as needed Objective - Vital Signs Vital signs: Vital Signs Temp 98.3 F 12/20/18 04:00 Pulse 64 12/20/18 04:00 Resp 17 12/20/18 04:00 BP 100/56 12/20/18 04:00 Pulse Ox 97 12/20/18 04:00 Intake & Output 12/19/18 12/20/18 12/20/18 18:59 06:59 18:59 Intake Total 1200 1700 Output Total 600 300 350 Balance 600 1400 -350 Weight 89.8 kg Intake: IV 1000 1500 Sodium Chloride 0.9% 1, 1000 1500 000 ml @ 125 mls/hr IV . Q8H [facility] Rx#:[id number] Intake, IV Titration 200 200 Amount Aztreonam 2 gm In Sodium 100 100 Chloride 0.9% 100 ml @ 100 mls/hr IVPB Q8HR [facility] Rx#:[id number] metroNIDAZOLE-NS PMX 500 100 100 mg In Saline 1 100ml.bag @ 100 mls/hr IVPB Q8HR [facility] Rx#:[id number] Output: Urine 600 300 350 Other: Voiding Method Bedpan - Exam GENERAL EXAM: Patient is alert and oriented and doesn't appear to be in any acute distress HEENT: Normocephalic. Normal reaction of pupils, equal size, normal range of extraocular motion. No erythema or exudates in the throat. NECK: No masses, no nuchal rigidity. CHEST: No chest wall deformity. LUNGS: Equal air entry with no crackles or wheeze. HEART: S1 and S2 normal with no audible mumurs or gallops. Regular rhythm, femorals equal on both sides.. ABDOMEN: Soft SKIN: No rashes CENTRAL NERVOUS SYSTEM: No focal deficits. EXTREMITIES: No cyanosis, clubbing or edema. - Labs CBC & Chem 7: 12/20/18 04:25 12/20/18 04:25 Labs: Abnormal Lab Results - Last 24 Hours (Table) 12/19/18 12/19/18 12/19/18 Range/Units 11:31 11:50 16:00 WBC (3.8-10.6) k/uL Neutrophils # (1.3-7.7) k/uL Lymphocytes # (1.0-4.8) k/uL Chloride (98-107) mmol/L Carbon Dioxide (22-30) mmol/L Glucose (74-99) mg/dL POC Glucose (mg/dL) 173 H (75-99) mg/dL AST (14-36) U/L Troponin I 0.068 H* 0.038 H* (0.000-0.034) ng/mL Total Protein (6.3-8.2) g/dL Albumin (3.5-5.0) g/dL 12/19/18 12/19/18 12/19/18 Range/Units 21:10 22:09 23:54 WBC (3.8-10.6) k/uL Neutrophils # (1.3-7.7) k/uL Lymphocytes # (1.0-4.8) k/uL Chloride (98-107) mmol/L Carbon Dioxide (22-30) mmol/L Glucose (74-99) mg/dL POC Glucose (mg/dL) 222 H 250 H 181 H (75-99) mg/dL AST (14-36) U/L Troponin I (0.000-0.034) ng/mL Total Protein (6.3-8.2) g/dL Albumin (3.5-5.0) g/dL 12/20/18 12/20/18 12/20/18 Range/Units 04:25 04:25 06:59 WBC 15.3 H (3.8-10.6) k/uL Neutrophils # 14.0 H (1.3-7.7) k/uL Lymphocytes # 0.5 L (1.0-4.8) k/uL Chloride 110 H (98-107) mmol/L Carbon Dioxide 20 L (22-30) mmol/L Glucose 158 H (74-99) mg/dL POC Glucose (mg/dL) 151 H (75-99) mg/dL AST 46 H (14-36) U/L Troponin I (0.000-0.034) ng/mL Total Protein 5.3 L (6.3-8.2) g/dL Albumin 3.0 L (3.5-5.0) g/dL Microbiology - Last 24 Hours (Table) 12/19/18 04:45 Blood Culture - Preliminary Blood No Growth after 24 hours 12/19/18 05:41 Urine Culture - Preliminary Urine,Catheterized Assessment and Plan (1) Elevated troponin Current Visit: Yes Status: Acute Code(s): R74.8 - ABNORMAL LEVELS OF OTHER SERUM ENZYMES SNOMED Code(s): 276874739 (2) Addisons disease Current Visit: Yes Status: Acute Code(s): E27.1 - PRIMARY ADRENOCORTICAL INSUFFICIENCY SNOMED Code(s): 359216256 (3) Hypertension Current Visit: No Status: Acute Code(s): I10 - ESSENTIAL (PRIMARY) HYPERTENSION SNOMED Code(s): 34044642 (4) Diverticulitis Current Visit: Yes Status: Acute Code(s): K57.92 - DVTRCLI OF INTEST, PART UNSP, W/O PERF OR ABSCESS W/O BLEED SNOMED Code(s): 721296341 (5) UTI (urinary tract infection) Current Visit: Yes Status: Acute Code(s): N39.0 - URINARY TRACT INFECTION, SITE NOT SPECIFIED SNOMED Code(s): 50162661 Plan: Echocardiogram showed normal LV function. Patient remains stable without any symptoms of chest pain or shortness of breath. No further cardiac workup. Rest of the problems to be addressed by primary care
--- NOTE | 2018-12-20 11:26 | ECHOF ---
Referral Reason:LVF MEASUREMENTS -------- HEIGHT: 167.6 cm WEIGHT: 81.6 kg BP: IVSd: 1.0 cm (0.6 - 1.1) LVIDd: 3.2 cm (3.9 - 5.3) LVPWd: 1.1 cm (0.6 - 1.1) IVSs: 1.5 cm LVIDs: 2.3 cm LVPWs: 1.8 cm LAESV Index (A-L): 26.49 ml/m Ao Diam: 2.7 cm (2.0 - 3.7) AV Cusp: 2.0 cm (1.5 - 2.6) LA Diam: 4.3 cm (2.7 - 3.8) MV EXCURSION: 12.842 mm (> 18.000) MV EF SLOPE: 77 mm/s (70 - 150) EPSS: 0.9 cm MV E Esau: 0.91 m/s MV DecT: 176 ms MV A Esau: 1.03 m/s MV E/A Ratio: 0.88 RAP: 5.00 mmHg RVSP: 30.00 mmHg FINDINGS -------- Sinus rhythm. This was a technically good study. The left ventricular size is normal. Left ventricular wall thickness is normal. Overall left vent ricular systolic function is normal with, an EF between 55 - 60 %. The diastolic filling pattern is normal for the age of the patient. The right ventricle is normal in size. Normal LA size by volume 22+/-6 ml/m2. The right atrial size is normal. Interatrial and interventricular septum intact. Aortic valve is trileaflet and is mildly thickened. Moderate mitral annular calcification present. Mild mitral regurgitation is present. The tricuspid valve appears structurally normal. Mild tricuspid regurgitation present. Right vent ricular systolic pressure is normal at < 35 mmHg. There is no pulmonic regurgitation present. The aortic root size is normal. Normal inferior vena cava with normal inspiratory collapse consistent with estimated right atrial pre ssure of 5 mmHg. The pulmonary veins were not recorded. There is a trivial pericardial effusion present. CONCLUSIONS -------- 1. Sinus rhythm. 2. This was a technically good study. 3. The left ventricular size is normal. 4. Left ventricular wall thickness is normal. 5. Overall left ventricular systolic function is normal with, an EF between 55 - 60 %. 6. The diastolic filling pattern is normal for the age of the patient. 7. Normal LA size by volume 22+/-6 ml/m2. 8. Aortic valve is trileaflet and is mildly thickened. 9. Moderate mitral annular calcification present. 10. Mild mitral regurgitation is present. 11. The tricuspid valve appears structurally normal. 12. Mild tricuspid regurgitation present. 13. There is no pulmonic regurgitation present. 14. The aortic root size is normal. 15. Normal inferior vena cava with normal inspiratory collapse consistent with estimated right atrial pressure of 5 mmHg. 16. The pulmonary veins were not recorded. 17. There is a trivial pericardial effusion present. SKIVER WELT END: Rhoda Decker RDCS
[2018-12-20 11:53] LABS: Glucose,Whole Blood 200 mg/dL (75-99)
[2018-12-20] MEDS: SODIUM CHLORIDE 0.45% 1,000 ML IV SCH (12:30)
--- NOTE | 2018-12-20 12:56 | P.PN ---
Subjective Progress Note Date: 12/20/18 This is 5-year-old female with a previous medical history significant for [place] disease, hypertension and hypertensive cardio vascular disease, hypothyroidism, history of ALLERGIC rhinitis, history of diabetes mellitus type 2 with diabetic polyneuropathy, history of degenerative disc disease of the lumbar spine status post surgical intervention, history of volvulus in the past with bowel obstruction about a year ago status post surgery, patient stated that she was in her usual state of health about 2 weeks ago when she went to her primary care physician she was complaining of not feeling well with increased pain in her ears and sinuses and she had a cold symptoms prior to that she ended up going to [facility] where they gave her Bactrim double strength twice a day for one week she took the first pill on Monday she developed to have an increased abdominal pain associated with nausea vomiting and diarrhea and she has not been eating or drinking much her temperature went up to 101 patient tried to walk with her walker and she ended up falling backward because of extreme weakness in both lower extremities, her had cold her twice and she ended up coming to the ER at [facility] where she was found to have sepsis with urinary tract infection she was hypotensive did receive IV fluid in the form of normal saline and she was admitted to the intensive care unit as a selective overflow, she was started on IV antibiotic in the form of Levaquin as well as metronidazole after she had a computed tomography scan of the abdomen and pelvis that did show possible transverse colon diverticulitis and along with a urinary tract infection she was started on IV anabiotic as such and infectious disease consultation was obtained, blood cultures were obtained, as well as ur ine culture computed tomography scan of the lumbar spine did not show any evidence of abscess did show significant extensive surgical changes, computed tomography scan of the brain was pending computed tomography scan of the abdomen and pelvis didn't show possible diverticulitis, patient was seen in intensive care unit she appears to be better her vital signs are stable, and her blood pressure is 122/72 her heart rate is 90 her oxygen level 96% on 2 L nasal cannula. 12/20: Patient remains in intensive care unit waiting for cardiac stepdown unit bed. Patient states she is feeling better today from yesterday. She has increased strength to the lower extremities. She states she slept well even though she had multiple interruptions. She denies any nausea. Plan today is to increase activity. We will decrease Solu-Medrol to 40 every 12 hours. Continue Azactam and Flagyl per Dr. Gauthier. A repeat lab work reveals a white count of 15.3, hemoglobin 12.2. CO2 is 20 and chloride 110, creatinine 0.62. Blood sugars running between 151 and 250. IV fluids will be changed to 0.45 normal saline at 75 mL per hour. PT and OT are suggesting subacute rehab. Discharge plan is to [facility] or [facility] for Inpatient rehab. Social work is following. Urine culture is in progress. Blood culture no growth at 24 hours. Anticipate probable discharge tomorrow. Review of Systems Constitutional: Reports chronic pain, Reports weakness, Denies anorexia, Denies fever, Denies lethargy, Denies malaise Eyes: denies blurred vision, denies bulging eye, denies decreased vision, denies diplopia Ears: deny: decreased hearing Ears, nose, mouth and throat: Denies dysphagia, Denies neck lump, Denies swelling in throat, Denies sore throat Cardiovascular: Denies chest pain, Denies decreased exercise tolerance, Denies lightheadedness, Denies rapid heart beat, Denies shortness of breath, Denies syncope Respiratory: Denies congestion, Denies cough with sputum, Denies home oxygen, Denies pain, Denies sleep apnea, Denies snoring, Denies wheezing Gastrointestinal: Reports abdominal pain, denies diarrhea, Reports loss of appetite, denies nausea, denies vomiting, Denies coffee ground emesis, Denies early satiety, Denies excessive gas, Denies heartburn, Denies melena Genitourinary: Reports dysuria, Denies hematuria Musculoskeletal: Reports gait dysfunction, Reports muscle weakness, Denies myalgias Musculoskeletal: absent: ankle pain, ankle stiffness, ankle swelling, elbow pain, elbow stiffness, elbow swelling, foot pain, foot stiffness, foot swelling, hand pain, hand stiffness, hand swelling, hip pain, hip stiffness, hip swelling, knee pain, knee stiffness, knee swelling, shoulder pain, shoulder stiffness, shoulder swelling, wrist pain, wrist stiffness, wrist swelling Integumentary: Denies pruritus, Denies rash Neurological: Reports gait dysfunction, Reports paresthesias, Reports weakness, Denies change in speech, Denies confusion, Denies convulsions, Denies double vision, Denies numbness Psychiatric: Reports anxiety, Reports depression, Denies sadness/tearfulness, Denies sleep disturbances, Denies suicidal ideation Endocrine: Denies fatigue, Denies weight change Objective - Vital Signs Vital signs: Vital Signs Temp 98.3 F 12/20/18 04:00 Pulse 64 12/20/18 04:00 Resp 17 12/20/18 04:00 BP 100/56 12/20/18 04:00 Pulse Ox 97 12/20/18 04:00 Intake & Output 12/19/18 12/20/18 12/20/18 18:59 06:59 18:59 Intake Total 1200 1700 Output Total 600 300 350 Balance 600 1400 -350 Weight 89.8 kg Intake: IV 1000 1500 Sodium Chloride 0.9% 1, 1000 1500 000 ml @ 125 mls/hr IV . Q8H [facility] Rx#:[id number] Intake, IV Titration 200 200 Amount Aztreonam 2 gm In Sodium 100 100 Chloride 0.9% 100 ml @ 100 mls/hr IVPB Q8HR [facility] Rx#:[id number] metroNIDAZOLE-NS PMX 500 100 100 mg In Saline 1 100ml.bag @ 100 mls/hr IVPB Q8HR [facility] Rx#:[id number] Output: Urine 600 300 350 Other: Voiding Method Bedpan - Exam - Constitutional General appearance: no acute distress, obese, resting in ICU bed - EENT Eyes: anicteric sclerae, EOMI, PERRLA, no ptosis, no scleral icterus, normal appearance ENT: hearing grossly normal, NA/AT, normal oropharynx, thrush Ears: bilateral: normal - Neck Neck: no lymphadenopathy, normal ROM, no rigidity, no stridor, no thyromegaly Carotids: bilateral: upstroke normal Thyroid: bilateral: normal size - Respiratory Respiratory: bilateral: diminished, negative: dullness, rales, rhonchi, wheezing, prolonged expiration - Cardiovascular Rhythm: regular Heart sounds: normal: S1, S2 Abnormal Heart Sounds: no systolic murmur, no S3 Gallop, no S4 Gallop - Gastrointestinal General gastrointestinal: normal bowel sounds, soft, no splenomegaly, no tenderness, no umbilical hernia, no ventral hernia - Integumentary Integumentary: normal, normal turgor - Neurologic Neurologic: CNII-XII intact, focal deficits (Bilateral lower extremity weakness left more than right.) - Musculoskeletal Musculoskeletal: no gait normal, left sided weakness - Psychiatric Psychiatric: A&O x's 3, appropriate affect, intact judgment & insight - Labs CBC & Chem 7: 12/20/18 04:25 12/20/18 04:25 Labs: Abnormal Lab Results - Last 24 Hours (Table) 12/19/18 12/19/18 12/19/18 Range/Units 11:31 11:50 16:00 WBC (3.8-10.6) k/uL Neutrophils # (1.3-7.7) k/uL Lymphocytes # (1.0-4.8) k/uL Chloride (98-107) mmol/L Carbon Dioxide (22-30) mmol/L Glucose (74-99) mg/dL POC Glucose (mg/dL) 173 H (75-99) mg/dL AST (14-36) U/L Troponin I 0.068 H* 0.038 H* (0.000-0.034) ng/mL Total Protein (6.3-8.2) g/dL Albumin (3.5-5.0) g/dL 12/19/18 12/19/18 12/19/18 Range/Units 21:10 22:09 23:54 WBC (3.8-10.6) k/uL Neutrophils # (1.3-7.7) k/uL Lymphocytes # (1.0-4.8) k/uL Chloride (98-107) mmol/L Carbon Dioxide (22-30) mmol/L Glucose (74-99) mg/dL POC Glucose (mg/dL) 222 H 250 H 181 H (75-99) mg/dL AST (14-36) U/L Troponin I (0.000-0.034) ng/mL Total Protein (6.3-8.2) g/dL Albumin (3.5-5.0) g/dL 12/20/18 12/20/18 12/20/18 Range/Units 04:25 04:25 06:59 WBC 15.3 H (3.8-10.6) k/uL Neutrophils # 14.0 H (1.3-7.7) k/uL Lymphocytes # 0.5 L (1.0-4.8) k/uL Chloride 110 H (98-107) mmol/L Carbon Dioxide 20 L (22-30) mmol/L Glucose 158 H (74-99) mg/dL POC Glucose (mg/dL) 151 H (75-99) mg/dL AST 46 H (14-36) U/L Troponin I (0.000-0.034) ng/mL Total Protein 5.3 L (6.3-8.2) g/dL Albumin 3.0 L (3.5-5.0) g/dL Microbiology - Last 24 Hours (Table) 12/19/18 04:45 Blood Culture - Preliminary Blood No Growth after 24 hours 12/19/18 05:41 Urine Culture - Preliminary Urine,Catheterized Assessment and Plan Plan: 1. UTI with sepsis. Continue IV antibiotic Azactam and Flagyl, urine culture, blood culture, IV fluid in the form of normal saline 1 25 mL an hour, ID consult with Dr. Gauthier appreciated.. 2. Possible diverticulitis of the transverse colon. Continue IV anabiotic Azactam as well as metronidazole 500 mg IV piggyback every 8 hours. 3. Hypertension likely related to sepsis. Continue IV fluid resuscitation, continue IV antibiotic, monitor the blood pressure very closely. IV fluids changed to 0.45 normal saline at 75 mL per hour. 4. [place] disease. Solu-Medrol 60 mg IV push every 8 hours decreased to 40 mg every 12 hours. Continue with Florinef 0.1 mg orally once every day. 5. Bilateral lower extremity weakness with left more than right likely related to significant spine disease with surgical intervention. Computed tomography scan did not show any evidence of any epidural abscess. Continue to monitor the patient very closely him a computed tomography scan of the brain was obtained to complete the evaluation. Patient will need to have an EMG nerve conduction study as an outpatient. Strength is improving. 6. Hypothyroidism. Continue patient on Synthroid 200 g orally once every day. 7. Hypertension. Continue patient on metoprolol 100 mg orally once every day. 8. Diabetes mellitus type 2. Diet-controlled. 9. ALLERGIC rhinitis. Stable. 10. Elevated troponin likely related to sepsis. Repeat another set of troponin, echocardiogram, cardiology consult. 11. DVT prophylaxis. Lovenox 40 mg subcutaneously every 24 hours. 12. GI prophylaxis. Continue Pepcid. 13. Patient is full code. Discharge plan: [facility] or [facility] for Inpatient rehab Impression and plan of care have been directed as dictated by the signing physician. Jyotsna Aviles nurse practitioner acting as scribe for signing physician.
[2018-12-20 16:48] LABS: Glucose,Whole Blood 225 mg/dL (75-99)
[2018-12-20 20:16] LABS: Glucose,Whole Blood 180 mg/dL (75-99)
[2018-12-20] MEDS: methylPREDNISolone SOD SUCCI 40 MG/ML 1 ML VIAL IV SCH (20:50)
[2018-12-20] MEDS: diphenhydrAMINE 25 MG CAP PO PRN (23:08)
--- NOTE | 2018-12-20 23:38 | PN ---
PROGRESS NOTE DATE OF SERVICE: 12/20/2018 REASON FOR FOLLOWUP: UTI and possible diverticulitis. INTERVAL HISTORY: The patient is currently afebrile. The patient has been breathing comfortably. She has more strength. No further nausea. No vomiting or diarrhea. No abdominal pain. The patient was noted to have some rash on the trunk after Flagyl infusion, but no worsening subsequently per the RN. PHYSICAL EXAMINATION: Her blood pressure is 106/55 with a pulse of 72, temperature 97.6. She is 96% on room air. General description is an elderly female lying in bed in no distress. RESPIRATORY SYSTEM: Unlabored breathing. Clear to auscultation anteriorly. HEART: S1, S2. Regular rate and rhythm. ABDOMEN: Soft. No tenderness. EXTREMITIES: No edema of the feet. SKIN EXAMINATION: Maculopapular rash on the trunk, not on her arms. LABS: Hemoglobin is 12.2, white count 15.3 with a BUN of 13, creatinine 0.62. Urine culture came back negative, though UA was slightly positive. DIAGNOSTIC IMPRESSION AND PLAN: Patient admitted to hospital with low-grade fever with nausea vomiting and diarrhea with a concern for UTI and diverticulitis in this patient who does have MULTIPLE ANTIBIOTIC ALLERGIES. Patient is currently covered with Azactam and Flagyl; to continue and will monitor her rash closely. Continue with supportive care. MMODL / IJN: [id number] /
[2018-12-21] MEDS: metroNIDAZOLE-NS PMX 500 MG in SALINE 1 100ML.BAG IVPB SCH ×2 (00:11→19:47)
--- NOTE | 2018-12-21 00:34 | P.CONS ---
History of Present Illness - Reason for Consult Consult date: 12/19/18 Sepsis UTI and multiple antibiotic ALLERGY Requesting physician: Greg Sommer - Chief Complaint Fever and weakness x few days - History of Present Illness Patient is 68-year-old female who was brought into the ER by EMS for evaluation of weakness and fever apparently the patient's symptoms started on last week symptom has been mostly URI with facial pain and congestion she went to an urgent care the patient was diagnosed with a sinus infection and was started on Bactrim DS. Patient admitted for a few days on the day of presentation hospital the patient did have multiple episodes of vomiting and diarrhea and while going to the bathroom the patient did have a fall after the second fall patient was unable to get up because of weakness in her leg s ubsequently the EMS was called and the patient was brought into the hospital on arrival to the abdomen to have low-grade fever 100.2 A she did be due to vitamin of 18,000 patient did have mildly positive UA and a CT of abdominal pelvis has been suspicious for diverticulitis patient because of hypertension has been admitted to the ICU and required fluid boluses she was started on Levaquin and Flagyl because of her multiple antibiotic ALLERGIES and ear infections was consulted for further recommendation regarding antibiotic. Review of Systems Positive points has been mentioned in HPI rest of the systems are negative Past Medical History Past Medical History: Asthma, Cancer, Diabetes Mellitus, Eye Disorder, GERD/Reflux, Hypertension, Osteoarthritis (OA), Pneumonia, Thyroid Disorder Additional Past Medical History / Comment(s): NIDDM type II-diet controlled, neuropathy bilateral feet, current ulcer R great toe being treated by dematologist, Ashburn's disease, ischemic necrosis small bowel/small bowel volvulus, frequent diarrhea, mitral valve prolapse, esophageal echalasia, dysphagia, IBS, diverticular disease, hiatal hernia, UTIS-frequent, bronchitis, chronic low back pain with ambulation, arthritis in multiple joints, Potter's corneal dystrophy bilaterally, hypothyroid, 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 History of Any Multi-Drug Resistant Organisms: None Reported Past Surgical History: Adenoidectomy, Back Surgery, Cholecystectomy, Hysterectomy, Joint Replacement, Tonsillectomy Additional Past Surgical History / Comment(s): Skin cancer removals, back surgery x2-has cages/rods, L total knee arthroplasty, bilateral feet had screws in place but R foot's were removed, EGDs, colonoscopies, bilateral cataract removals/lens implants. Past Anesthesia/Blood Transfusion Reactions: Previous Problems w/ Anesthesia, Motion Sickness Additional Past Anesthesia/Blood Transfusion Reaction / Comm: "FELT LIKE i WAS CLIMBING [place] AFTER ANESTHESIA IN [place]" Smoking Status: Never smoker - Past Family History Mother Family Medical History: Coronary Artery Disease (CAD), Diabetes Mellitus Additional Family Medical History / Comment(s): Mother at age 87 from diabetes and coronary artery disease. Father Family Medical History: No Reported History Additional Family Medical History / Comment(s): Father at age 89 few weeks after his . Brother(s) Additional Family Medical History / Comment(s): She has 2 brothers and one from coronary artery disease and the other is alive with no major medical problems. Patient has 2 children with no major medical problems. Medications and Allergies Home Medications Medication Instructions Recorded Confirmed Type Cholecalciferol [Vitamin D3 (25 1,000 unit PO PC-BRKFST 08/30/17 12/19/18 History Mcg = 1000 Iu)] Cortisone Acetate [Cortone] 12.5 mg PO HS 08/30/17 12/19/18 History Cortisone Acetate [Cortone] 25 mg PO BID@0600,1200 08/30/17 12/19/18 History Dicyclomine [Bentyl] 10 mg PO BID PRN 08/30/17 12/19/18 History Diphenox-Atrop 2.5-0.025 mg 1 tab PO QID PRN 08/30/17 12/19/18 History [Lomotil] Fexofenadine HCl 60 mg PO DAILY 08/30/17 12/19/18 History Fludrocortisone [Florinef] 0.1 mg PO DAILY 08/30/17 12/19/18 History Fluticasone Propionate [Flovent 3 puff INHALATION RT-BID PRN 08/30/17 12/19/18 History Hfa 110mcg] Levothyroxine Sodium [Levoxyl] 200 mcg PO DAILY 08/30/17 12/19/18 History Meloxicam [Mobic] 7.5 mg PO DAILY 08/30/17 12/19/18 History Prasterone (Dhea) [Dhea 25] 25 mg PO WE 08/30/17 12/19/18 History Solumedrol 40 mg INJ DAILY PRN 08/30/17 12/19/18 History Trimethobenzamide [Tigan] 300 mg PO BID PRN 08/30/17 12/19/18 History tiZANidine HCL 2 mg PO HS 08/30/17 12/19/18 History traZODone HCL 100 mg PO HS 08/30/17 12/19/18 History Levalbuterol Tartrate [Xopenex Hfa 2 puff INHALATION RT-Q6H PRN 11/15/17 12/19/18 History Inhaler] Montelukast [Singulair] 10 mg PO DAILY 11/15/17 12/19/18 History Diflucan (Unknown Dose) 1 tab PO DAILY PRN 12/19/18 12/19/18 History Levothyroxine Sodium [Levoxyl] 25 mcg PO WE 12/19/18 12/19/18 History Metoprolol Tartrate [Lopressor] 100 mg PO PC-BRKFST 12/19/18 12/19/18 History Allergies Allergy/AdvReac Type Severity Reaction Status Date / Time adhesive tape Allergy Rash/Hives Verified 12/19/18 07:18 Penicillins Allergy Anaphylaxis Verified 12/19/18 07:18 cephalexin [From Keflex] AdvReac Nausea & Verified 12/19/18 07:18 Vomiting erythromycin base AdvReac Nausea & Verified 12/19/18 07:18 Vomiting Tetracyclines AdvReac Nausea & Verified 12/19/18 07:18 Vomiting Physical Exam Vitals: Vital Signs Temp Pulse Resp BP Pulse Ox 12/19/18 09:04 98.1 F 99 16 104/59 98 12/19/18 08:57 98.1 F 99 16 104/59 98 12/19/18 07:00 98.1 F 101 H 13 96/53 97 12/19/18 06:47 99 F 105 H 18 80/47 96 12/19/18 04:41 100 F H 134 H 20 124/71 98 12/19/18 03:56 100.2 F H 130 H 20 126/72 98 Intake and Output 12/19/18 12/19/18 12/19/18 06:59 14:59 22:59 Other: Weight 86.183 kg GENERAL DESCRIPTION: An elderly female lying in bed, no distress. No tachypnea or accessory muscle of respiration use. HEENT: Shows Pallor , no scleral icterus. Oral mucous membrane is dry. No pharyngeal erythema or thrush NECK: Trachea central, no thyromegaly. LUNGS: Unlabored breathing. Clear to auscultation anteriorly. No wheeze or crackle. HEART: S1, S2, regular rate and rhythm. No loud murmur ABDOMEN: Soft, no tenderness , guarding or rigidity, no organomegaly EXTREMITIES: No edema of feet. SKIN: No rash, no masses palpable. NEUROLOGICAL: The patient is awake, alert, oriented x3, mood and affect normal. Results CBC & Chem 7: 12/20/18 04:25 12/20/18 04:25 Labs: Abnormal Lab Results - Last 24 Hours (Table) 12/19/18 12/19/18 12/19/18 Range/Units 04:27 04:27 04:27 WBC 18.7 H (3.8-10.6) k/uL Hct 48.1 H (34.0-46.0) % Neutrophils # 15.5 H (1.3-7.7) k/uL Lymphocytes # 0.6 L (1.0-4.8) k/uL Eosinophils # 1.2 H (0-0.7) k/uL Basophils # 0.4 H (0-0.2) k/uL INR (<1.2) Carbon Dioxide 20 L (22-30) mmol/L BUN 18 H (7-17) mg/dL Creatinine 1.27 H (0.52-1.04) mg/dL Glucose 157 H (74-99) mg/dL POC Glucose (mg/dL) (75-99) mg/dL Plasma Lactic Acid Homer (0.7-2.0) mmol/L AST 56 H (14-36) U/L Troponin I 0.168 H* (0.000-0.034) ng/mL Urine Appearance (Clear) Urine Protein (Negative) Urine Blood (Negative) Ur Leukocyte Esterase (Negative) Urine RBC (0-5) /hpf Urine WBC (0-5) /hpf Amorphous Sediment (None) /hpf Urine Bacteria (None) /hpf Hyaline Casts (0-2) /lpf Urine Mucus (None) /hpf 12/19/18 12/19/18 12/19/18 Range/Units 04:27 04:27 05:41 WBC (3.8-10.6) k/uL Hct (34.0-46.0) % Neutrophils # (1.3-7.7) k/uL Lymphocytes # (1.0-4.8) k/uL Eosinophils # (0-0.7) k/uL Basophils # (0-0.2) k/uL INR 1.2 H (<1.2) Carbon Dioxide (22-30) mmol/L BUN (7-17) mg/dL Creatinine (0.52-1.04) mg/dL Glucose (74-99) mg/dL POC Glucose (mg/dL) (75-99) mg/dL Plasma Lactic Acid Homer 5.9 H* (0.7-2.0) mmol/L AST (14-36) U/L Troponin I (0.000-0.034) ng/mL Urine Appearance Cloudy H (Clear) Urine Protein 1+ H (Negative) Urine Blood Small H (Negative) Ur Leukocyte Esterase Large H (Negative) Urine RBC 18 H (0-5) /hpf Urine WBC 19 H (0-5) /hpf Amorphous Sediment Rare H (None) /hpf Urine Bacteria Rare H (None) /hpf Hyaline Casts 54 H (0-2) /lpf Urine Mucus Moderate H (None) /hpf 12/19/18 12/19/18 12/19/18 Range/Units 09:24 11:31 11:50 WBC (3.8-10.6) k/uL Hct (34.0-46.0) % Neutrophils # (1.3-7.7) k/uL Lymphocytes # (1.0-4.8) k/uL Eosinophils # (0-0.7) k/uL Basophils # (0-0.2) k/uL INR (<1.2) Carbon Dioxide (22-30) mmol/L BUN (7-17) mg/dL Creatinine (0.52-1.04) mg/dL Glucose (74-99) mg/dL POC Glucose (mg/dL) 173 H 173 H (75-99) mg/dL Plasma Lactic Acid Homer (0.7-2.0) mmol/L AST (14-36) U/L Troponin I 0.068 H* (0.000-0.034) ng/mL Urine Appearance (Clear) Urine Protein (Negative) Urine Blood (Negative) Ur Leukocyte Esterase (Negative) Urine RBC (0-5) /hpf Urine WBC (0-5) /hpf Amorphous Sediment (None) /hpf Urine Bacteria (None) /hpf Hyaline Casts (0-2) /lpf Urine Mucus (None) /hpf Microbiology - Last 24 Hours (Table) 12/19/18 05:41 Urine Culture - Preliminary Urine,Catheterized Assessment and Plan Assessment: 1-patient presented to the hospital with sepsis in this patient who did have a fever low-grade tachycardia hypertension and elevated white count meets criteria for sepsis source is likely a combination of urinary tract infection as well as mild sigmoid diverticulitis and will need to cover for enteric gram-negative both tubes and anaerobes 2-Patient with multiple antibiotics ALLERGIES that will limit the number of antibiotic safe to use (1) Allergy to multiple antibiotics Current Visit: Yes Status: Acute Code(s): Z88.1 - ALLERGY STATUS TO OTHER ANTIBIOTIC AGENTS STATUS SNOMED Code(s): 676910785781943 (2) Diverticulitis Current Visit: Yes Status: Acute Code(s): K57.92 - DVTRCLI OF INTEST, PART UNSP, W/O PERF OR ABSCESS W/O BLEED SNOMED Code(s): 092843544 (3) Sepsis Current Visit: Yes Status: Acute Code(s): A41.9 - SEPSIS, UNSPECIFIED ORGANISM SNOMED Code(s): 66302911 (4) UTI (urinary tract infection) Current Visit: Yes Status: Acute Code(s): N39.0 - URINARY TRACT INFECTION, SITE NOT SPECIFIED SNOMED Code(s): 52430769 Plan: 1-discontinue the Levaquin and start the patient on Azactam 2 g every 8 hours 2-continue the Flagyl 500 every 8 hour 3-IV fluids we will follow on clinical condition and culture to further adjust medication if needed Thank you for this consultation will follow this patient along with you Time with Patient: Greater than 30
[2018-12-21] MEDS: SODIUM CHLORIDE 0.45% 1,000 ML IV SCH ×3 (06:02→18:28)
[2018-12-21 06:05] LABS: Glucose,Whole Blood 188 mg/dL (75-99)
[2018-12-21 06:19] LABS: HCT 36.6 % (34.0-46.0); HGB 12.1 gm/dL (11.4-16.0); MCHC 33.2 g/dL (31.0-37.0); MCV 93.4 fL (80.0-100.0); Mean Platelet Volume 9.8; Platelet Count 231 k/uL (150-450); RBC 3.92 m/uL (3.80-5.40); RDW 14.7 % (11.5-15.5); WBC 22.9 k/uL (3.8-10.6)
[2018-12-21 06:29] LABS: ALT 38 U/L (9-52); AST 29 U/L (14-36); African American GFR (CKD) >90 (>60 ml/min/1.73 sqM); Albumin 2.9 g/dL (3.5-5.0); Alkaline Phosphatase 58 U/L (38-126); Anion Gap 7 mmol/L; Blood Urea Nitrogen 17 mg/dL (7-17); Calcium 9.2 mg/dL (8.4-10.2); Carbon Dioxide 22 mmol/L (22-30); Chloride 111 mmol/L (98-107); Glucose 178 mg/dL (74-99); Potassium 4.5 mmol/L (3.5-5.1); Sodium 140 mmol/L (137-145); Total Bilirubin 0.3 mg/dL (0.2-1.3); Total Protein 5.2 g/dL (6.3-8.2)
[2018-12-21] MEDS: LEVOTHYROXINE 100 MCG TAB PO SCH (06:34)
[2018-12-21] MEDS: INSULIN ASPART (NovoLOG) 100 UNIT/ML VIAL SQ SCH ×4 (06:34→21:02)
--- NOTE | 2018-12-21 09:13 | CDI ---
Please check with PCP Documentation Clarification Form Date: 12/20/2018 12:07:08 PM From: Georgina Newby RN CCDS Phone: '[phone] Admit Date: 12/19/2018 6:23:00 AM Patient Name: Ana Jenkins Visit Number: [id number] Discharge Date: ATTENTION: The Clinical Documentation Specialists (CDI) and [facility] Coding Staff appreciate your assistance in clarifying documentation. Please respond to the clarification below the line at the bottom and electronically sign. The CDI & [facility] Coding staff will review the response and follow-up if needed. Please note: Queries are made part of the Legal Health Record. If you have any questions, please contact the author of this message via ITS. Dr. Mariana Todd Renal failure is documented in your consult 12/19/2018 History/Risk Factors: 68-year-old female presents to the ED for fever and generalized weakness. Clinical Indicators: Lab findings: Creatinine 1.27, Bun 18, GFR 43 Repeat Creatine 12/20/2018 Cr 0.62 Vital Signs: 126/72 130 100.2 20 98% ra Treatment: 2.5L 0.9ns iv fluid bolus In your professional opinion, can you please clarify renal failure? * Acute Renal Failure * Chronic Renal Failure * Acute on Chronic Renal Failure * Other, please specify * Unable to determine (Last Revision: July 2017) MTDD
[2018-12-21] MEDS: methylPREDNISolone SOD SUCCI 40 MG/ML 1 ML VIAL IV SCH ×3 (09:59→23:55)
[2018-12-21] MEDS: MONTELUKAST 10 MG TAB PO SCH (10:00)
[2018-12-21] MEDS: METOPROLOL SUCCINATE (ER) 100 MG TAB.ER.24H PO SCH (10:00)
[2018-12-21] MEDS: ENOXAPARIN 40 MG/0.4 ML SYRINGE SQ SCH (10:00)
[2018-12-21] MEDS: FLUDROCORTISONE 0.1 MG TAB PO SCH (10:00)
[2018-12-21 11:50] LABS: Glucose,Whole Blood 131 mg/dL (75-99)
[2018-12-21] MEDS: diphenhydrAMINE 25 MG CAP PO PRN ×2 (14:08→21:02)
[2018-12-21] MEDS: LEVOFLOXACIN 500 MG TAB PO SCH (14:08)
--- NOTE | 2018-12-21 14:30 | P.PN ---
Subjective Progress Note Date: 12/21/18 This is 5-year-old female with a previous medical history significant for Cannon disease, hypertension and hypertensive cardio vascular disease, hypothyroidism, history of ALLERGIC rhinitis, history of diabetes mellitus type 2 with diabetic polyneuropathy, history of degenerative disc disease of the lumbar spine status post surgical intervention, history of volvulus in the past with bowel obstruction about a year ago status post surgery, patient stated that she was in her usual state of health about 2 weeks ago when she went to her primary care physician she was complaining of not feeling well with increased pain in her ears and sinuses and she had a cold symptoms prior to that she ended up going to [facility] where they gave her Bactrim double strength twice a day for one week she took the first pill on Monday she developed to have an increased abdominal pain associated with nausea vomiting and diarrhea and she has not been eating or drinking much her temperature went up to 101 patient tried to walk with her walker and she ended up falling backward because of extreme weakness in both lower extremities, her had cold her twice and she ended up coming to the ER at [facility] where she was found to have sepsis with urinary tract infection she was hypotensive did receive IV fluid in the form of normal saline and she was admitted to the intensive care unit as a selective overflow, she was started on IV antibiotic in the form of Levaquin as well as metronidazole after she had a computed tomography scan of the abdomen and pelvis that did show possible transverse colon diverticulitis and along with a urinary tract infection she was started on IV anabiotic as such and infectious disease consultation was obtained, blood cultures were obtained, as well as ur ine culture computed tomography scan of the lumbar spine did not show any evidence of abscess did show significant extensive surgical changes, computed tomography scan of the brain was pending computed tomography scan of the abdomen and pelvis didn't show possible diverticulitis, patient was seen in intensive care unit she appears to be better her vital signs are stable, and her blood pressure is 122/72 her heart rate is 90 her oxygen level 96% on 2 L nasal cannula. 12/20: Patient remains in intensive care unit waiting for cardiac stepdown unit bed. Patient states she is feeling better today from yesterday. She has increased strength to the lower extremities. She states she slept well even though she had multiple interruptions. She denies any nausea. Plan today is to increase activity. We will decrease Solu-Medrol to 40 every 12 hours. Continue Azactam and Flagyl per Dr. Gauthier. A repeat lab work reveals a white count of 15.3, hemoglobin 12.2. CO2 is 20 and chloride 110, creatinine 0.62. Blood sugars running between 151 and 250. IV fluids will be changed to 0.45 normal saline at 75 mL per hour. PT and OT are suggesting subacute rehab. Discharge plan is to [facility] or [facility] for Inpatient rehab. Social work is following. Urine culture is in progress. Blood culture no growth at 24 hours. Anticipate probable discharge tomorrow. 12/21: Patient has been afebrile, heart rate 64, blood pressure 124/61, pulse ox 97% on room air. WBC 22.9, hemoglobin 12.1, platelet count 231. Chloride 111, creatinine 0.66, blood sugars running in the 180s. Albumin 2.9. Urine culture finalized with no growth after 18 hours. Blood culture no growth after 48 hours. Patient developed rash yesterday afternoon which continued to worsen during the night and Benadryl was added. She denies any difficulty swallowing or breathing. No oral lesions. Patient states that the only antibiotic that she know she can tolerate is Levaquin/Cipro. Azactam and Flagyl were discontinued this morning. Most likely patient has had an ALLERGIC reaction to Azactam which will be added to her ALLERGY list. We will increase Solu-Medrol to every 8 hours for now. Patient is hoping that she will be able to go home. Discharge will be held today and most likely planned for Monday. Review of Systems Constitutional: Reports chronic pain, Reports weakness, Denies anorexia, Denies fever, Denies lethargy, Denies malaise Eyes: denies blurred vision, denies bulging eye, denies decreased vision, denies diplopia Ears: deny: decreased hearing Ears, nose, mouth and throat: Denies dysphagia, Denies neck lump, Denies swelling in throat, Denies sore throat Cardiovascular: Denies chest pain, Denies decreased exercise tolerance, Denies lightheadedness, Denies rapid heart beat, Denies shortness of breath, Denies syncope Respiratory: Denies congestion, Denies cough with sputum, Denies home oxygen, De nies pain, Denies sleep apnea, Denies snoring, Denies wheezing Gastrointestinal: Reports abdominal pain, denies diarrhea, Reports loss of appetite, denies nausea, denies vomiting, Denies coffee ground emesis, Denies early satiety, Denies excessive gas, Denies heartburn, Denies melena Genitourinary: Reports dysuria, Denies hematuria Musculoskeletal: Reports gait dysfunction, Reports muscle weakness, Denies myalgias Musculoskeletal: absent: ankle pain, ankle stiffness, ankle swelling, elbow pain, elbow stiffness, elbow swelling, foot pain, foot stiffness, foot swelling, hand pain, hand stiffness, hand swelling, hip pain, hip stiffness, hip swelling, knee pain, knee stiffness, knee swelling, shoulder pain, shoulder stiffness, shoulder swelling, wrist pain, wrist stiffness, wrist swelling Integumentary: reports pruritus, reports rash Neurological: Reports gait dysfunction, Reports paresthesias, Reports weakness, Denies change in speech, Denies confusion, Denies convulsions, Denies double vision, Denies numbness Psychiatric: Reports anxiety, Reports depression, Denies sadness/tearfulness, Denies sleep disturbances, Denies suicidal ideation Endocrine: Denies fatigue, Denies weight change Objective - Vital Signs Vital signs: Vital Signs Temp 97.7 F 12/21/18 08:10 Pulse 64 12/21/18 08:10 Resp 16 12/21/18 08:10 BP 124/61 12/21/18 08:10 Pulse Ox 97 12/21/18 08:10 Intake & Output 12/20/18 12/21/18 12/21/18 18:59 06:59 18:59 Intake Total 1620 240 Output Total 2350 1050 Balance -730 -1050 240 Weight 90 kg Intake: IV 1400 Aztreonam 2 gm In Sodium 100 Chloride 0.9% 100 ml @ 100 mls/hr IVPB Q8HR [facility] Rx#:[id number] Sodium Chloride 0.45% 1, 700 000 ml @ 75 mls/hr IV . [id number] [facility] Rx#:[id number] Sodium Chloride 0.9% 1, 500 000 ml @ 125 mls/hr IV . Q8H [facility] Rx#:[id number] metroNIDAZOLE-NS PMX 500 100 mg In Saline 1 100ml.bag @ 100 mls/hr IVPB Q8HR [facility] Rx#:[id number] Oral 220 240 Output: Urine 2350 1050 Other: Voiding Method Bedside Commode # Voids 1 # Bowel Movements 1 - Exam - Constitutional General appearance: no acute distress, obese, resting in ICU bed - EENT Eyes: anicteric sclerae, EOMI, PERRLA, no ptosis, no scleral icterus, normal appearance ENT: hearing grossly normal, NA/AT, normal oropharynx, thrush Ears: bilateral: normal - Neck Neck: no lymphadenopathy, normal ROM, no rigidity, no stridor, no thyromegaly Carotids: bilateral: upstroke normal Thyroid: bilateral: normal size - Respiratory Respiratory: bilateral: diminished, negative: dullness, rales, rhonchi, wheezing, prolonged expiration - Cardiovascular Rhythm: regular Heart sounds: normal: S1, S2 Abnormal Heart Sounds: no systolic murmur, no S3 Gallop, no S4 Gallop - Gastrointestinal General gastrointestinal: normal bowel sounds, soft, no splenomegaly, no tenderness, no umbilical hernia, no ventral hernia - Integumentary Integumentary: Maculopapular rash worse on the back arms and thighs - Neurologic Neurologic: CNII-XII intact, focal deficits (Bilateral lower extremity weakness left more than right.) - Musculoskeletal Musculoskeletal: no gait normal, left sided weakness - Psychiatric Psychiatric: A&O x's 3, appropriate affect, intact judgment & insight - Labs CBC & Chem 7: 12/21/18 05:48 12/21/18 05:48 Labs: Abnormal Lab Results - Last 24 Hours (Table) 12/20/18 12/20/18 12/20/18 Range/Units 11:41 16:37 20:14 WBC (3.8-10.6) k/uL Chloride (98-107) mmol/L Glucose (74-99) mg/dL POC Glucose (mg/dL) 200 H 225 H 180 H (75-99) mg/dL Total Protein (6.3-8.2) g/dL Albumin (3.5-5.0) g/dL 12/21/18 12/21/18 12/21/18 Range/Units 05:48 05:48 06:03 WBC 22.9 H (3.8-10.6) k/uL Chloride 111 H (98-107) mmol/L Glucose 178 H (74-99) mg/dL POC Glucose (mg/dL) 188 H (75-99) mg/dL Total Protein 5.2 L (6.3-8.2) g/dL Albumin 2.9 L (3.5-5.0) g/dL Microbiology - Last 24 Hours (Table) 12/19/18 04:45 Blood Culture - Preliminary Blood No Growth after 48 hours 12/19/18 05:41 Urine Culture - Final Urine,Catheterized Assessment and Plan Plan: 1. UTI with sepsis. Azactam and Flagyl disconnected. Patient placed on oral Levaquin. Urine culture showing no growth but most likely due to antibiotics prior to admission. Patient was being treated for sinus infection. ID consult with Dr. Gauthier appreciated. 2. Possible diverticulitis of the transverse colon. Continue oral Levaquin. 3. Hypotension likely related to sepsis. Status post IV fluid resuscitation, continue antibiotic IV fluids 0.45 normal saline decreased to 50 mL per hour. 4. Wei disease. Solu-Medrol 40 mg IV push every 8 hours. Continue with Florinef 0.1 mg orally once every day. 5. Bilateral lower extremity weakness with left more than right likely related to significant spine disease with surgical intervention. Computed tomography scan did not show any evidence of any epidural abscess. Continue to monitor the patient very closely him a computed tomography scan of the brain was obtained to complete the evaluation. Patient will need to have an EMG nerve conduction study as an outpatient. Strength is improving. 6. Hypothyroidism. Continue patient on Synthroid 200 g orally once every day. 7. Hypertension. Continue patient on metoprolol 100 mg orally once every day. 8. Diabetes mellitus type 2. Diet-controlled. Continue NovoLog scale. 9. ALLERGIC rhinitis. Stable. 10. Elevated troponin likely related to sepsis. Repeat another set of troponin, echocardiogram, cardiology consult. 11. DVT prophylaxis. Lovenox 40 mg subcutaneously every 24 hours. 12. GI prophylaxis. Continue Pepcid. 13. ALLERGIC reaction, most likely due to Azactam. Azactam and Flagyl have been discontinued. Patient will be started on oral Levaquin. Continue Benadryl and Solu-Medrol. Patient is full code. Discharge plan: [facility] or [facility] for rehab on Monday Impression and plan of care have been directed as dictated by the signing physician. Jyotsna Aviles nurse practitioner acting as scribe for signing physician.
[2018-12-21 17:30] LABS: Glucose,Whole Blood 200 mg/dL (75-99)
[2018-12-21] MEDS: AZTREONAM 2 GM in SODIUM CHLORIDE 0.9% 100 ML IVPB SCH (19:47)
[2018-12-21] MEDS: traZODone HCL 50 MG TAB PO SCH (19:48)
[2018-12-21] MEDS: FAMOTIDINE 20 MG/2 ML VIAL IV SCH (19:48)
--- NOTE | 2018-12-21 20:03 | PN ---
PROGRESS NOTE DATE OF SERVICE: 12/21/2018 REASON FOR FOLLOWUP: 1. Acute sigmoid diverticulitis. 2. Drug rash. INTERVAL HISTORY: The patient is currently afebrile. The patient is noted to have extensive rash. Her antibiotics were discontinued this morning, including Azactam and Flagyl. IV Pepcid has been discontinued as well. The patient has some burning pain to the rash area but no significant itching. The patient denies having any sores in the mouth and no difficulty breathing. No nausea, no vomiting, and abdominal pain has resolved. No further vomiting. PHYSICAL EXAMINATION: Blood pressure is 135/62 with a pulse of 55, temperature 98. She is 97% on room air. General description is an elderly female lying in bed in no distress. RESPIRATORY SYSTEM: Unlabored breathing. Clear to auscultation anteriorly. HEART: S1, S2. Regular rate and rhythm. ABDOMEN: Soft. No tenderness. SKIN EXAMINATION: Extensive rash but no vesical or bullae formation. LABS: Hemoglobin is 12.1, white count 22.9 with a BUN of 17, creatinine 0.66. DIAGNOSTIC IMPRESSION AND PLAN: Patient with acute sigmoid diverticulitis with no perforation in this patient who developed extensive rash that could have been related to the Pepcid, as Azactam is not likely a drug to cause a rash. Both have been discontinued. Levaquin and Flagyl have been started for her diverticulitis; to continue while monitoring her clinical course closely. Continue with supportive care. MMODL / IJN: [id number] / MTDD
[2018-12-21 20:50] LABS: Glucose,Whole Blood 200 mg/dL (75-99)
[2018-12-21] MEDS: traZODone HCL 100 MG TAB PO SCH (21:02)
[2018-12-22 06:37] LABS: HCT 40.4 % (34.0-46.0); HGB 13.2 gm/dL (11.4-16.0); MCH 30.5 pg (25.0-35.0); MCHC 32.7 g/dL (31.0-37.0); MCV 93.3 fL (80.0-100.0); Mean Platelet Volume 9.1; Platelet Count 292 k/uL (150-450); RBC 4.34 m/uL (3.80-5.40); RDW 14.6 % (11.5-15.5); WBC 16.4 k/uL (3.8-10.6)
[2018-12-22 06:37] LABS: Glucose,Whole Blood 167 mg/dL (75-99)
[2018-12-22] MEDS: LEVOTHYROXINE 100 MCG TAB PO SCH (06:44)
[2018-12-22] MEDS: INSULIN ASPART (NovoLOG) 100 UNIT/ML VIAL SQ SCH ×4 (06:45→20:33)
[2018-12-22 07:00] LABS: African American GFR (CKD) >90 (>60 ml/min/1.73 sqM); Anion Gap 9 mmol/L; Blood Urea Nitrogen 16 mg/dL (7-17); Calcium 9.4 mg/dL (8.4-10.2); Carbon Dioxide 23 mmol/L (22-30); Chloride 107 mmol/L (98-107); Glucose 188 mg/dL (74-99); Potassium 4.3 mmol/L (3.5-5.1); Sodium 139 mmol/L (137-145)
[2018-12-22] MEDS: MONTELUKAST 10 MG TAB PO SCH (08:58)
[2018-12-22] MEDS: METOPROLOL SUCCINATE (ER) 100 MG TAB.ER.24H PO SCH (08:58)
[2018-12-22] MEDS: FLUDROCORTISONE 0.1 MG TAB PO SCH (08:58)
[2018-12-22] MEDS: methylPREDNISolone SOD SUCCI 40 MG/ML 1 ML VIAL IV SCH ×3 (08:59→20:33)
[2018-12-22] MEDS: ENOXAPARIN 40 MG/0.4 ML SYRINGE SQ SCH (08:59)
[2018-12-22 12:01] LABS: Glucose,Whole Blood 181 mg/dL (75-99)
[2018-12-22] MEDS: LEVOFLOXACIN 500 MG TAB PO SCH (12:55)
--- NOTE | 2018-12-22 16:19 | P.PN ---
Subjective Progress Note Date: 12/22/18 This is 68-year-old female patient of Dr. Sommer with a previous medical history significant for Elk disease, hypertension and hypertensive cardio vascular disease, hypothyroidism, history of ALLERGIC rhinitis, history of diabetes mellitus type 2 with diabetic polyneuropathy, history of degen erative disc disease of the lumbar spine status post surgical intervention, history of volvulus in the past with bowel obstruction about a year ago status post surgery, patient stated that she was in her usual state of health about 2 weeks ago when she went to her primary care physician she was complaining of not feeling well with increased pain in her ears and sinuses and she had a cold symptoms prior to that she ended up going to [place] where they gave her Bactrim double strength twice a day for one week she took the first pill on Monday she developed to have an increased abdominal pain associated with nausea vomiting and diarrhea and she has not been eating or drinking much her tempe rature went up to 101 patient tried to walk with her walker and she ended up falling backward because of extreme weakness in both lower extremities, her had cold her twice and she ended up coming to the ER at [facility] where she was found to have sepsis with urinary tract infection she was hypotensive did receive IV fluid in the form of normal saline and she was admitted to the intensive care unit as a selective overflow, she was started on IV antibiotic in the form of Levaquin as well as metronidazole after she had a computed tomography scan of the abdomen and pelvis that did show possible transverse colon diverticulitis and along with a urinary tract infection she was started on IV anabiotic as such and infectious disease consultation was obtained, blood cultures were obtained, as well as urine culture computed tomography scan of the lumbar spine did not show any evidence of abscess did show significant extensive surgical changes, computed tomography scan of the bra in was pending computed tomography scan of the abdomen and pelvis didn't show possible diverticulitis, patient was seen in intensive care unit she appears to be better her vital signs are stable, and her blood pressure is 122/72 her heart rate is 90 her oxygen level 96% on 2 L nasal cannula. 12/20: Patient remains in intensive care unit waiting for cardiac stepdown unit bed. Patient states she is feeling better today from yesterday. She has increased strength to the lower extremities. She states she slept well even though she had multiple interruptions. She denies any nausea. Plan today is to increase activity. We will decrease Solu-Medrol to 40 every 12 hours. Continue Azactam and Flagyl per Dr. Gauthier. A repeat lab work reveals a white count of 15.3, hemoglobin 12.2. CO2 is 20 and chloride 110, creatinine 0.62. Blood sugars running between 151 and 250. IV fluids will be changed to 0.45 normal saline at 75 mL per hour. PT and OT are suggesting subacute rehab. Discharge plan is to [facility] or [facility] for Inpatient rehab. Social work is following. Urine culture is in progress. Blood culture no growth at 24 hours. Anticipate probable discharge tomorrow. 12/21: Patient has been afebrile, heart rate 64, blood pressure 124/61, pulse ox 97% on room air. WBC 22.9, hemoglobin 12.1, platelet count 231. Chloride 111, creatinine 0.66, blood sugars running in the 180s. Albumin 2.9. Urine culture finalized with no growth after 18 hours. Blood culture no growth after 48 hours. Patient developed rash yesterday afternoon which continued to worsen during the night and Benadryl was added. She denies any difficulty swallowing or breathing. No oral lesions. Patient states that the only antibiotic that she know she can tolerate is Levaquin/Cipro. Azactam and Flagyl were discontinued this morning. Most likely patient has had an ALLERGIC reaction to Azactam which will be added to her ALLERGY list. We will increase Solu-Medrol to every 8 hours for now. Patient is hoping that she will be able to go home. Discharge will be held today and most likely planned for Monday. 12/21: Patient have improvement of generalized rash, this looks more like a vasculitis-type rash or a viral exanthem rather than an urticarial drug eruption and responds well on Solu-Medrol currently dosed at 40 mg every 8 hours, it would be discontinued,, this is not pruritic, Dr. Gauthier didn't think it would be related to Azactam, patient is currently tolerating Levaquin oral, patient denies any abdominal pain, no diarrhea, sinuses are better, patientdenies any history of saman's granulomatosis but she seems to have recurrent sinusitis in the past, we will obtain c-ANCA and p-ANCA. symptoms were preceded by a sinus infection, and unable to mobilize lower extremities. Patient is doing better now, patient refused to go to subacute rehab, post discharge as she thinks she is getting better. Baseline Jennifer story status estrada with a walker Review of Systems Constitutional: Reports chronic pain, Reports weakness, Denies anorexia, Denies fever, Denies lethargy, Denies malaise Eyes: denies blurred vision, denies bulging eye, denies decreased vision, denies diplopia Ears: deny: decreased hearing Ears, nose, mouth and throat: Denies dysphagia, Denies neck lump, Denies swelling in throat, Denies sore throat Cardiovascular: Denies chest pain, Denies decreased exercise tolerance, Denies lightheadedness, Denies rapid heart beat, Denies shortness of breath, Denies syncope Respiratory: Denies congestion, Denies cough with sputum, Denies home oxygen, Denies pain, Denies sleep apnea, Denies snoring, Denies wheezing Gastrointestinal: Reports abdominal pain, denies diarrhea, Reports loss of appetite, denies nausea, denies vomiting, Denies coffee ground emesis, Denies early satiety, Denies excessive gas, Denies heartburn, Denies melena Genitourinary: Reports dysuria, Denies hematuria Musculoskeletal: Reports gait dysfunction, Reports muscle weakness, Denies myalgias Musculoskeletal: absent: ankle pain, ankle stiffness, ankle swelling, elbow pain, elbow stiffness, elbow swelling, foot pain, foot stiffness, foot swelling, hand pain, hand stiffness, hand swelling, hip pain, hip stiffness, hip swelling, knee pain, knee stiffness, knee swelling, shoulder pain, shoulder stiffness, shoulder swelling, wrist pain, wrist stiffness, wrist swelling Integumentary: reports pruritus, reports rash Neurological: Reports gait dysfunction, Reports paresthesias, Reports weakness, Denies change in speech, Denies confusion, Denies convulsions, Denies double vision, Denies numbness Psychiatric: Reports anxiety, Reports depression, Denies sadness/tearfulness, Denies sleep disturbances, Denies suicidal ideation Endocrine: Denies fatigue, Denies weight change Objective - Vital Signs Vital signs: Vital Signs Temp 98.2 F 12/22/18 04:00 Pulse 65 12/22/18 04:00 Resp 16 12/22/18 04:00 BP 147/85 12/22/18 04:00 Pulse Ox 93 L 12/22/18 04:00 Intake & Output 12/21/18 12/22/18 12/22/18 18:59 06:59 18:59 Intake Total 1440 600 Output Total 400 950 Balance 1040 -950 600 Weight 91.7 kg Intake: IV 600 Sodium Chloride 0.45% 1, 600 000 ml @ 75 mls/hr IV . [id number] [facility] Rx#:[id number] Oral 840 600 Output: Urine 400 950 Other: Voiding Method Bedside Commode Bedside Commode # Voids 1 4 - Constitutional General appearance: Present: cooperative, no acute distress - EENT Eyes: Present: anicteric sclerae, EOMI, PERRLA, dentition normal, normal appearance ENT: Present: NA/AT, normal oropharynx - Neck Neck: Present: normal ROM - Respiratory Respiratory: bilateral: CTA, negative: diminished, dullness, rales, rhonchi, wheezing - Cardiovascular Rhythm: regular Heart sounds: normal: S1, S2 - Gastrointestinal General gastrointestinal: Present: normal bowel sounds, soft, tenderness (None) - Integumentary Integumentary: Present: decreased turgor, normal - Neurologic Neurologic: Present: CNII-XII intact - Musculoskeletal Musculoskeletal: Present: strength equal bilaterally - Psychiatric Psychiatric: Present: A&O x's 3 - Labs CBC & Chem 7: 12/22/18 06:06 12/22/18 06:06 Labs: Abnormal Lab Results - Last 24 Hours (Table) 12/21/18 12/21/18 12/22/18 Range/Units 17:22 20:50 06:06 WBC 16.4 H (3.8-10.6) k/uL Glucose (74-99) mg/dL POC Glucose (mg/dL) 200 H 200 H (75-99) mg/dL 12/22/18 12/22/18 12/22/18 Range/Units 06:06 06:36 12:00 WBC (3.8-10.6) k/uL Glucose 188 H (74-99) mg/dL POC Glucose (mg/dL) 167 H 181 H (75-99) mg/dL Microbiology - Last 24 Hours (Table) 12/19/18 04:45 Blood Culture - Preliminary Blood No Growth after 72 hours Assessment and Plan Plan: 1. UTI with sepsis. Azactam and Flagyl disconnected. Patient placed on oral Levaquin. Urine culture showing no growth but most likely due to antibiotics prior to admission. Patient was being treated for sinus infection. ID consult with Dr. Gauthier appreciated. 2. Possible diverticulitis of the mid transverse colon. Continue oral Levaquin. 3. Hypotension likely related to sepsis. Status post IV fluid resuscitation, continue antibiotic IV fluids 0.45 normal saline decreased to 50 mL per hour. 4. Elk disease. Solu-Medrol 40 mg IV push every 8 hours. Continue with Florinef 0.1 mg orally once every day. 5. Bilateral lower extremity weakness with left more than right likely related to significant spine disease with surgical intervention. Computed tomography scan did not show any evidence of any epidural abscess. Continue to monitor the patient very closely him a computed tomography scan of the brain was obtained to complete the evaluation. Patient will need to have an EMG nerve conduction study as an outpatient. Strength is improving. 6. Hypothyroidism. Continue patient on Synthroid 200 g orally once every day. 7. Hypertension. Continue patient on metoprolol 100 mg orally once every day. 8. Diabetes mellitus type 2. Diet-controlled. Continue NovoLog scale. 9. ALLERGIC rhinitis. Stable. 10. Elevated troponin likely related to sepsis. Repeat another set of troponin, echocardiogram, cardiology consult. 11. DVT prophylaxis. Lovenox 40 mg subcutaneously every 24 hours. 12. GI prophylaxis. Continue Pepcid. 13. Generalized vasculitic-appearing rash rather than ALLERGIC reaction continue on IV Solu-Medrol decreased to tapering dose, might need oral prednisone post discharge depending on in a levels, c-ANCA and p-ANCA to be obtained, as the patient has recurrent sinusitis, saman's granulomatosis cannot be ruled out if persistent, patient would need biopsies Patient is full code. Discharge plan: [facility] or [facility] for rehab on Monday patient refused for inpatient rehab, patient is progressing well with IV steroids, anticipate home therapies baseline with ambulation is with walker continue PT OT
[2018-12-22 17:00] LABS: Glucose,Whole Blood 174 mg/dL (75-99)
[2018-12-22] MEDS: SODIUM CHLORIDE 0.45% 1,000 ML IV SCH (18:49)
[2018-12-22 20:27] LABS: Glucose,Whole Blood 188 mg/dL (75-99)
[2018-12-22] MEDS: traZODone HCL 100 MG TAB PO SCH (20:33)
[2018-12-22] MEDS: diphenhydrAMINE 25 MG CAP PO PRN (20:33)
[2018-12-23 06:02] LABS: Glucose,Whole Blood 169 mg/dL (75-99)
[2018-12-23] MEDS: LEVOTHYROXINE 100 MCG TAB PO SCH (06:05)
[2018-12-23] MEDS: INSULIN ASPART (NovoLOG) 100 UNIT/ML VIAL SQ SCH ×4 (06:06→20:38)
[2018-12-23] MEDS: SODIUM CHLORIDE 0.45% 1,000 ML IV SCH (06:11)
[2018-12-23] MEDS: ENOXAPARIN 40 MG/0.4 ML SYRINGE SQ SCH (09:30)
[2018-12-23] MEDS: methylPREDNISolone SOD SUCCI 40 MG/ML 1 ML VIAL IV SCH ×2 (09:30→20:39)
[2018-12-23] MEDS: METOPROLOL SUCCINATE (ER) 100 MG TAB.ER.24H PO SCH (09:30)
[2018-12-23] MEDS: MONTELUKAST 10 MG TAB PO SCH (09:30)
[2018-12-23] MEDS: FLUDROCORTISONE 0.1 MG TAB PO SCH (09:32)
[2018-12-23 11:54] LABS: Glucose,Whole Blood 145 mg/dL (75-99)
[2018-12-23] MEDS: LEVOFLOXACIN 500 MG TAB PO SCH (12:39)
--- NOTE | 2018-12-23 15:48 | P.PN ---
Subjective Progress Note Date: 12/23/18 This is 68-year-old female patient of Dr. Sommer with a previous medical history significant for [place] disease, hypertension and hypertensive cardio vascular disease, hypothyroidism, history of ALLERGIC rhinitis, history of diabetes mellitus type 2 with diabetic polyneuropathy, history of degen erative disc disease of the lumbar spine status post surgical intervention, history of volvulus in the past with bowel obstruction about a year ago status post surgery, patient stated that she was in her usual state of health about 2 weeks ago when she went to her primary care physician she was complaining of not feeling well with increased pain in her ears and sinuses and she had a cold symptoms prior to that she ended up going to [place] where they gave her Bactrim double strength twice a day for one week she took the first pill on Monday she developed to have an increased abdominal pain associated with nausea vomiting and diarrhea and she has not been eating or drinking much her tempe rature went up to 101 patient tried to walk with her walker and she ended up falling backward because of extreme weakness in both lower extremities, her had cold her twice and she ended up coming to the ER at [facility] where she was found to have sepsis with urinary tract infection she was hypotensive did receive IV fluid in the form of normal saline and she was admitted to the intensive care unit as a selective overflow, she was started on IV antibiotic in the form of Levaquin as well as metronidazole after she had a computed tomography scan of the abdomen and pelvis that did show possible transverse colon diverticulitis and along with a urinary tract infection she was started on IV anabiotic as such and infectious disease consultation was obtained, blood cultures were obtained, as well as urine culture computed tomography scan of the lumbar spine did not show any evidence of abscess did show significant extensive surgical changes, computed tomography scan of the bra in was pending computed tomography scan of the abdomen and pelvis didn't show possible diverticulitis, patient was seen in intensive care unit she appears to be better her vital signs are stable, and her blood pressure is 122/72 her heart rate is 90 her oxygen level 96% on 2 L nasal cannula. 12/20: Patient remains in intensive care unit waiting for cardiac stepdown unit bed. Patient states she is feeling better today from yesterday. She has increased strength to the lower extremities. She states she slept well even though she had multiple interruptions. She denies any nausea. Plan today is to increase activity. We will decrease Solu-Medrol to 40 every 12 hours. Continue Azactam and Flagyl per Dr. Gauthier. A repeat lab work reveals a white count of 15.3, hemoglobin 12.2. CO2 is 20 and chloride 110, creatinine 0.62. Blood sugars running between 151 and 250. IV fluids will be changed to 0.45 normal saline at 75 mL per hour. PT and OT are suggesting subacute rehab. Discharge plan is to [facility] or [facility] for Inpatient rehab. Social work is following. Urine culture is in progress. Blood culture no growth at 24 hours. Anticipate probable discharge tomorrow. 12/21: Patient has been afebrile, heart rate 64, blood pressure 124/61, pulse ox 97% on room air. WBC 22.9, hemoglobin 12.1, platelet count 231. Chloride 111, creatinine 0.66, blood sugars running in the 180s. Albumin 2.9. Urine culture finalized with no growth after 18 hours. Blood culture no growth after 48 hours. Patient developed rash yesterday afternoon which continued to worsen during the night and Benadryl was added. She denies any difficulty swallowing or breathing. No oral lesions. Patient states that the only antibiotic that she know she can tolerate is Levaquin/Cipro. Azactam and Flagyl were discontinued this morning. Most likely patient has had an ALLERGIC reaction to Azactam which will be added to her ALLERGY list. We will increase Solu-Medrol to every 8 hours for now. Patient is hoping that she will be able to go home. Discharge will be held today and most likely planned for Monday. 12/21: Patient have improvement of generalized rash, this looks more like a vasculitis-type rash or a viral exanthem rather than an urticarial drug eruption and responds well on Solu-Medrol currently dosed at 40 mg every 8 hours, it would be discontinued,, this is not pruritic, Dr. Gauthier didn't think it would be related to Azactam, patient is currently tolerating Levaquin oral, patient denies any abdominal pain, no diarrhea, sinuses are better, patientdenies any history of saman's granulomatosis but she seems to have recurrent sinusitis in the past, we will obtain c-ANCA and p-ANCA. symptoms were preceded by a sinus infection, and unable to mobilize lower extremities. Patient is doing better now, patient refused to go to subacute rehab, post discharge as she thinks she is getting better. Baseline Jennifer story status estrada with a walker 12/22 patient continues to improve, rashes none pruritic, is currently fading, JOEY is currently pending for c-ANCA and p-ANCA, steroid to be completed IV tonight, and patient would resume home hydrocortisone dose in the morning. Expected discharge in the morning, pending recommendations from infectious disease for antibiotic post discharge for suspected diverticulitis and clinical sinusitis, patient's ambulating with a walker similar to baseline at home, expect home discharge with therapies. Ongoing therapies while in the hospital Review of Systems Constitutional: Reports chronic pain, Reports weakness, Denies anorexia, Denies fever, Denies lethargy, Denies malaise Eyes: denies blurred vision, denies bulging eye, denies decreased vision, denies diplopia Ears: deny: decreased hearing Ears, nose, mouth and throat: Denies dysphagia, Denies neck lump, Denies swelling in throat, Denies sore throat Cardiovascular: Denies chest pain, Denies decreased exercise tolerance, Denies lightheadedness, Denies rapid heart beat, Denies shortness of breath, Denies syncope Respiratory: Denies congestion, Denies cough with sputum, Denies home oxygen, Denies pain, Denies sleep apnea, Denies snoring, Denies wheezing Gastrointestinal: Reports abdominal pain, denies diarrhea, Reports loss of appetite, denies nausea, denies vomiting, Denies coffee ground emesis, Denies early satiety, Denies excessive gas, Denies heartburn, Denies melena Genitourinary: Reports dysuria, Denies hematuria Musculoskeletal: Reports gait dysfunction, Reports muscle weakness, Denies myalgias Musculoskeletal: absent: ankle pain, ankle stiffness, ankle swelling, elbow pain, elbow stiffness, elbow swelling, foot pain, foot stiffness, foot swelling, hand pain, hand stiffness, hand swelling, hip pain, hip stiffness, hip swelling, knee pain, knee stiffness, knee swelling, shoulder pain, shoulder stiffness, shoulder swelling, wrist pain, wrist stiffness, wrist swelling Integumentary: reports pruritus, reports rash Neurological: Reports gait dysfunction, Reports paresthesias, Reports weakness, Denies change in speech, Denies confusion, Denies convulsions, Denies double vision, Denies numbness Psychiatric: Reports anxiety, Reports depression, Denies sadness/tearfulness, Denies sleep disturbances, Denies suicidal ideation Endocrine: Denies fatigue, Denies weight change Objective - Vital Signs Vital signs: Vital Signs Temp 97.8 F 12/23/18 08:00 Pulse 66 12/23/18 12:00 Resp 16 12/23/18 12:00 BP 164/76 12/23/18 12:00 Pulse Ox 96 12/23/18 12:00 Intake & Output 12/22/18 12/23/18 12/23/18 18:59 06:59 18:59 Intake Total 720 440 Output Total 1000 Balance 720 -1000 440 Weight 92 kg Intake: Oral 720 440 Output: Urine 1000 Other: Voiding Method Bedside Commode Bedside Commode Bedside Commode # Voids 1 4 - Constitutional General appearance: Present: cooperative, no acute distress, obese - EENT Eyes: Present: anicteric sclerae, EOMI, PERRLA, normal appearance ENT: Present: NA/AT, normal oropharynx - Neck Neck: Present: normal ROM - Respiratory Respiratory: bilateral: CTA, negative: diminished, dullness - Cardiovascular Rhythm: regular Heart sounds: normal: S1, S2 Abnormal Heart Sounds: Absent: systolic murmur, diastolic murmur, rub, S3 Gallop, S4 Gallop, click, other - Gastrointestinal General gastrointestinal: Present: normal bowel sounds, soft, tenderness (None) - Integumentary Integumentary: Present: normal, normal turgor, rash (Non-pruritic now violaceous rash extremities fading lesions torso back and front) - Neurologic Neurologic: Present: CNII-XII intact - Musculoskeletal Musculoskeletal: Present: gait normal (Walker), strength equal bilaterally - Psychiatric Psychiatric: Present: A&O x's 3, appropriate affect, intact judgment & insight - Labs CBC & Chem 7: 12/22/18 06:06 12/22/18 06:06 Labs: Abnormal Lab Results - Last 24 Hours (Table) 12/22/18 12/22/18 12/23/18 Range/Units 16:59 20:26 06:01 POC Glucose (mg/dL) 174 H 188 H 169 H (75-99) mg/dL 09/22/19 Range/Units 11:52 POC Glucose (mg/dL) 145 H (75-99) mg/dL Microbiology - Last 24 Hours (Table) 12/19/18 04:45 Blood Culture - Preliminary Blood No Growth after 96 hours Assessment and Plan Plan: 1. UTI with sepsis. Azactam and Flagyl disconnected. Patient placed on oral Levaquin. Urine culture showing no growth but most likely due to antibiotics prior to admission. Patient was being treated for sinus infection. ID consult with Dr. Abrahan garnett. 2. Possible diverticulitis of the mid transverse colon. Continue oral Levaquin. 3. Hypotension likely related to sepsis. Status post IV fluid resuscitation, continue antibiotic IV fluids 0.45 normal saline decreased to 50 mL per hour. 4. [place] disease. Solu-Medrol 40 mg IV push every 8 hours. Continue with Florinef 0.1 mg orally once every day. 5. Bilateral lower extremity weakness with left more than right likely related to significant spine disease with surgical intervention. Computed tomography scan did not show any evidence of any epidural abscess. Continue to monitor the patient very closely him a computed tomography scan of the brain was obtained to complete the evaluation. Patient will need to have an EMG nerve conduction study as an outpatient. Strength is improving. 6. Hypothyroidism. Continue patient on Synthroid 200 g orally once every day. 7. Hypertension. Continue patient on metoprolol 100 mg orally once every day. 8. Diabetes mellitus type 2. Diet-controlled. Continue NovoLog scale. 9. ALLERGIC rhinitis. Stable. 10. Elevated troponin likely related to sepsis. Repeat another set of troponin, echocardiogram, cardiology consult. 11. DVT prophylaxis. Lovenox 40 mg subcutaneously every 24 hours. 12. GI prophylaxis. Continue Pepcid. 13. Generalized vasculitic-appearing rash rather than ALLERGIC reaction continue on IV Solu-Medrol decreased to tapering dose, might need oral prednisone post discharge depending on in a levels, c-ANCA and p-ANCA to be obtained, as the patient has recurrent sinusitis, saman's granulomatosis cannot be ruled out if persistent, patient would need biopsies Patient is full code. Discharge plan: [facility] or [facility] for rehab on Monday patient refused for inpatient rehab, patient is progressing well with IV steroids, anticipate home therapies baseline with ambulation is with walker continue PT OT
[2018-12-23 17:03] LABS: Glucose,Whole Blood 171 mg/dL (75-99)
[2018-12-23] MEDS: diphenhydrAMINE 25 MG CAP PO PRN (17:36)
[2018-12-23 20:22] LABS: Glucose,Whole Blood 208 mg/dL (75-99)
[2018-12-23] MEDS: traZODone HCL 100 MG TAB PO SCH (20:38)
[2018-12-24 00:47] VITALS: RESP 16
[2018-12-24] MEDS: SODIUM CHLORIDE 0.45% 1,000 ML IV SCH (03:47)
[2018-12-24 06:45] LABS: Glucose,Whole Blood 148 mg/dL (75-99)
[2018-12-24] MEDS: LEVOTHYROXINE 100 MCG TAB PO SCH (06:49)
[2018-12-24] MEDS: INSULIN ASPART (NovoLOG) 100 UNIT/ML VIAL SQ SCH ×2 (06:49→12:37)
[2018-12-24 07:04] LABS: Anisocytosis Slight; Basophils # (A) 0.1 k/uL (0-0.2); Basophils % (A) 0 %; Eosinophils % (A) 0 %; HGB 12.8 gm/dL (11.4-16.0); Lymphocytes # (A) 1.5 k/uL (1.0-4.8); Lymphocytes % (A) 10 %; MCHC 32.8 g/dL (31.0-37.0); MCV 91.6 fL (80.0-100.0); Mean Platelet Volume 9.5; Monocytes # (A) 0.7 k/uL (0-1.0); Monocytes % (A) 5 %; Neutrophils # (A) 11.7 k/uL (1.3-7.7); Neutrophils % (A) 83 %; Platelet Count 297 k/uL (150-450); RBC 4.26 m/uL (3.80-5.40); RDW 16.5 % (11.5-15.5); WBC 14.1 k/uL (3.8-10.6)
[2018-12-24 07:40] LABS: African American GFR (CKD) >90 (>60 ml/min/1.73 sqM); Anion Gap 5 mmol/L; Blood Urea Nitrogen 20 mg/dL (7-17); Calcium 8.8 mg/dL (8.4-10.2); Carbon Dioxide 30 mmol/L (22-30); Chloride 104 mmol/L (98-107); Glucose 175 mg/dL (74-99); Potassium 4.4 mmol/L (3.5-5.1); Sodium 139 mmol/L (137-145)
[2018-12-24] MEDS: ENOXAPARIN 40 MG/0.4 ML SYRINGE SQ SCH (08:24)
[2018-12-24] MEDS: MONTELUKAST 10 MG TAB PO SCH (08:24)
[2018-12-24] MEDS: FLUDROCORTISONE 0.1 MG TAB PO SCH (08:24)
[2018-12-24] MEDS: METOPROLOL SUCCINATE (ER) 100 MG TAB.ER.24H PO SCH (08:24)
[2018-12-24 08:33] VITALS: TEMP 98.3
[2018-12-24] MEDS: LEVOFLOXACIN 500 MG TAB PO SCH (11:30)
[2018-12-24 11:57] VITALS: BP 144/69; PULSE 58
[2018-12-24 12:37] LABS: Glucose,Whole Blood 90 mg/dL (75-99)
[2018-12-24 14:20] LABS: C-ANCA <1:20 Titer (<1:20)
--- NOTE | 2018-12-24 14:59 | P.DS ---
Providers Date of admission: 12/19/18 06:23 Expected date of discharge: 12/24/18 Attending physician: Greg Sommer Consults: 12/19/18 11:22 Consult Physician Routine Consulting Provider: Mariana Todd Consult Reason/Comments: elevated trop Do you want consulting provider notified?: Yes 12/19/18 11:46 Consult Physician Routine Consulting Provider: Sanam Gauthier Consult Reason/Comments: sepsis, uti Do you want consulting provider notified?: Yes Primary care physician: Stated None Hospital Course: This is 5-year-old female with a previous medical history significant for Ne disease, hypertension and hypertensive cardio vascular disease, hypothyroidism, history of ALLERGIC rhinitis, history of diabetes mellitus type 2 with diabetic polyneuropathy, history of degenerative disc disease of the lumbar spine status post surgical intervention, history of volvulus in the past with bowel obstruction about a year ago status post surgery, patient stated that she was in her usual state of health about 2 weeks ago when she went to her primary care physician she was complaining of not feeling well with increased pain in her ears and sinuses and she had a cold symptoms prior to that she ended up going to [facility] where they gave her Bactrim double strength twice a day for one week she took the first pill on Monday she developed to have an increased abdominal pain associated with nausea vomiting and diarrhea and she has not been eating or drinking much her temperature went up to 101 patient tried to walk with her walker and she ended up falling backward because of extreme weakness in both lower extremities, her had cold her twice and she ended up coming to the ER at [facility] where she was found to have sepsis with urinary tract infection she was hypotensive did receive IV fluid in the form of normal saline and she was admitted to the intensive care unit as a selective overflow, she was started on IV antibiotic in the form of Levaquin as well as metronidazole after she had a computed tomography scan of the abdomen and pelvis that did show possible transverse colon diverticulitis and along with a urinary tract infection she was started on IV anabiotic as such and infectious disease consultation was obtained, blood cultures were obtained, as well as urine culture computed tomography scan of the lumbar spine did not show any evidence of abscess did show significant extensive surgical changes, computed tomography scan of the brain was pending computed tomography scan of the abdomen and pelvis didn't show possible diverticulitis, patient was seen in intensive care unit she appears to be better her vital signs are stable, and her blood pressure is 122/72 her heart rate is 90 her oxygen level 96% on 2 L nasal ca nnula. 12/20: Patient remains in intensive care unit waiting for cardiac stepdown unit bed. Patient states she is feeling better today from yesterday. She has increased strength to the lower extremities. She states she slept well even though she had multiple interruptions. She denies any nausea. Plan today is to increase activity. We will decrease Solu-Medrol to 40 every 12 hours. Continue Azactam and Flagyl per Dr. Gauthier. A repeat lab work reveals a white count of 15.3, hemoglobin 12.2. CO2 is 20 and chloride 110, creatinine 0.62. Blood sugars running between 151 and 250. IV fluids will be changed to 0.45 normal saline at 75 mL per hour. PT and OT are suggesting subacute rehab. Discharge plan is to [facility] or [facility] for Inpatient rehab. Social work is following. Urine culture is in progress. Blood culture no growth at 24 hours. Anticipate probable discharge tomorrow. 12/21: Patient has been afebrile, heart rate 64, blood pressure 124/61, pulse ox 97% on room air. WBC 22.9, hemoglobin 12.1, platelet count 231. Chloride 111, creatinine 0.66, blood sugars running in the 180s. Albumin 2.9. Urine culture finalized with no growth after 18 hours. Blood culture no growth after 48 hours. Patient developed rash yesterday afternoon which continued to worsen during the night and Benadryl was added. She denies any difficulty swallowing or breathing. No oral lesions. Patient states that the only antibiotic that she know she can tolerate is Levaquin/Cipro. Azactam and Flagyl were discontinued this morning. Most likely patient has had an ALLERGIC reaction to Azactam which will be added to her ALLERGY list. We will increase Solu-Medrol to every 8 hours for now. Patient is hoping that she will be able to go home. Discharge will be held today and most likely planned for Monday. 12/22: Patient have improvement of generalized rash, this looks more like a vasculitis-type rash or a viral exanthem rather than an urticarial drug eruption and responds well on Solu-Medrol currently dosed at 40 mg every 8 hours, it would be discontinued,, this is not pruritic, Dr. Gauthier didn't think it would be related to Azactam, patient is currently tolerating Levaquin oral, patient denies any abdominal pain, no diarrhea, sinuses are better, patientdenies any history of saman's granulomatosis but she seems to have recurrent sinusitis in the past, we will obtain c-ANCA and p-ANCA. symptoms were preceded by a sinus infection, and unable to mobilize lower extremities. Patient is doing better now, patient refused to go to subacute rehab, post discharge as she thinks she is getting better. Baseline Jennifer story status estrada with a walker 12/23 patient continues to improve, rashes none pruritic, is currently fading, JOEY is currently pending for c-ANCA and p-ANCA, steroid to be completed IV tonight, and patient would resume home hydrocortisone dose in the morning. Expected discharge in the morning, pending recommendations from infectious disease for antibiotic post discharge for suspected diverticulitis and clinical sinusitis, patient's ambulating with a walker similar to baseline at home, expect home discharge with therapies. Ongoing therapies while in the hospital 12/24: JOEY screen negative, c-ANCA less than 1:20, p-ANCA less than 1:20. WBC 14.1, creatinine 0.[address] Gauthier has recommended one week of Flagyl and Levaquin. The patient has been doing well with ambulating in her room and states that she is back to her baseline and does not think she needs home care. Rash is fading. Patient will be discharged home today in stable condition. Discharge diagnoses: 1. UTI with sepsis. 2. Possible diverticulitis of the transverse colon. 3. Hypotension likely related to sepsis. 4. Cavalier disease. 5. Bilateral lower extremity weakness with left more than right likely related to significant spine disease with surgical intervention. Computed tomography scan did not show any evidence of any epidural abscess. EMG as an outpatient. 6. Hypothyroidism. 7. Hypertension. 8. Diabetes mellitus type 2. Diet-controlled. 9. ALLERGIC rhinitis. Stable. 10. Elevated troponin likely related to sepsis. 11. Generalized vasculitic-appearing rash rather than ALLERGIC reaction Discharge plan: Home Impression and plan of care have been directed as dictated by the signing physician. Jyotsna Aviles nurse practitioner acting as scribe for signing physician. Patient Condition at Discharge: Good Plan - Discharge Summary Discharge Rx Participant: No New Discharge Prescriptions: New metroNIDAZOLE [Flagyl] 500 mg PO Q8HR #21 tab Levofloxacin [Levaquin] 500 mg PO DAILY 7 Days #7 tab Continue Trimethobenzamide [Tigan] 300 mg PO BID PRN PRN Reason: Nausea Dicyclomine [Bentyl] 10 mg PO BID PRN PRN Reason: IBS Levothyroxine Sodium [Levoxyl] 200 mcg PO DAILY Fexofenadine HCl 60 mg PO DAILY traZODone HCL 100 mg PO HS tiZANidine HCL 2 mg PO HS Solumedrol 40 mg INJ DAILY PRN PRN Reason: NE'S CRISIS Prasterone (Dhea) [Dhea 25] 25 mg PO WE Fluticasone Propionate [Flovent Hfa 110mcg] 3 puff INHALATION RT-BID PRN PRN Reason: Shortness Of Breath Fludrocortisone [Florinef] 0.1 mg PO DAILY Diphenox-Atrop 2.5-0.025 mg [Lomotil] 1 tab PO QID PRN PRN Reason: Diarrhea Cortisone Acetate [Cortone] 25 mg PO BID@0600,1200 Cortisone Acetate [Cortone] 12.5 mg PO HS Cholecalciferol [Vitamin D3 (25 Mcg = 1000 Iu)] 1,000 unit PO PC-BRKFST Montelukast [Singulair] 10 mg PO DAILY Levalbuterol Tartrate [Xopenex Hfa Inhaler] 2 puff INHALATION RT-Q6H PRN PRN Reason: Shortness Of Breath Metoprolol Tartrate [Lopressor] 100 mg PO PC-BRKFST Levothyroxine Sodium [Levoxyl] 25 mcg PO WE Diflucan (Unknown Dose) 1 tab PO DAILY PRN PRN Reason: YEAST Discontinued Meloxicam [Mobic] 7.5 mg PO DAILY Discharge Medication List Cholecalciferol [Vitamin D3 (25 Mcg = 1000 Iu)] 1,000 unit PO PC-BRKFST 08/30/17 [History] Cortisone Acetate [Cortone] 12.5 mg PO HS 08/30/17 [History] Cortisone Acetate [Cortone] 25 mg PO BID@0600,1200 08/30/17 [History] Dicyclomine [Bentyl] 10 mg PO BID PRN 08/30/17 [History] Diphenox-Atrop 2.5-0.025 mg [Lomotil] 1 tab PO QID PRN 08/30/17 [History] Fexofenadine HCl 60 mg PO DAILY 08/30/17 [History] Fludrocortisone [Florinef] 0.1 mg PO DAILY 08/30/17 [History] Fluticasone Propionate [Flovent Hfa 110mcg] 3 puff INHALATION RT-BID PRN 08/30/17 [History] Levothyroxine Sodium [Levoxyl] 200 mcg PO DAILY 08/30/17 [History] Prasterone (Dhea) [Dhea 25] 25 mg PO WE 08/30/17 [History] Solumedrol 40 mg INJ DAILY PRN 08/30/17 [History] Trimethobenzamide [Tigan] 300 mg PO BID PRN 08/30/17 [History] tiZANidine HCL 2 mg PO HS 08/30/17 [History] traZODone HCL 100 mg PO HS 08/30/17 [History] Levalbuterol Tartrate [Xopenex Hfa Inhaler] 2 puff INHALATION RT-Q6H PRN 11/15/17 [History] Montelukast [Singulair] 10 mg PO DAILY 11/15/17 [History] Diflucan (Unknown Dose) 1 tab PO DAILY PRN 12/19/18 [History] Levothyroxine Sodium [Levoxyl] 25 mcg PO WE 12/19/18 [History] Metoprolol Tartrate [Lopressor] 100 mg PO PC-BRKFST 12/19/18 [History] Levofloxacin [Levaquin] 500 mg PO DAILY 7 Days #7 tab 12/24/18 [Rx] metroNIDAZOLE [Flagyl] 500 mg PO Q8HR #21 tab 12/24/18 [Rx] Follow up Appointment(s)/Referral(s): Greg Sommer MD [STAFF PHYSICIAN] - 1 Week (Spoke to chain splitter. Office will call with appointment time) Mariana Todd MD [STAFF PHYSICIAN] - 01/08/19 2:30 pm (Monday Please bring ID and medication sheet) Sanam Gauthier MD [STAFF PHYSICIAN] - 12/31/18 10:00 am (Monday) Patient Instructions/Handouts: Sepsis (GEN) Discharge Disposition: HOME SELF-CARE
--- NOTE | 2018-12-24 16:30 | PN ---
PROGRESS NOTE DATE OF SERVICE: 12/24/2018. REASON FOR FOLLOWUP: 1. Acute diverticulitis. 2. Drug rash. INTERVAL HISTORY: The patient is currently afebrile. Patient has been breathing comfortably. Denies having any chest pain or any cough. No abdominal pain. No nausea, vomiting, rash has decreased in intensity. PHYSICAL EXAMINATION: Blood pressure 144/59 with a pulse of 68, temperature 98.2. She is 98% on room air. General description is an elderly female lying in bed in no distress. Respiratory system: Unlabored breathing. Clear to auscultation anteriorly. Heart S1, S2. Regular rate and rhythm. Abdomen soft. No tenderness. LABS: Hemoglobin 12.1, white count 14.1. BUN of 20, creatinine 0.72. DIAGNOSTIC IMPRESSION AND PLAN: Patient with acute sigmoid diverticulitis. No perforation. The patient to finish therapy with oral Levaquin and Flagyl for about a week with close outpatient followup. MMODL / IJN: [id number] /
--- NOTE | 2018-12-27 09:04 | CDI ---
Documentation Clarification Form Date: 12/20/2018 12:07:08 PM From: Georgina Newby RN CCDS Phone: '[phone] Admit Date: 12/19/2018 6:23:00 AM Patient Name: Ana Jenkins Visit Number: [id number] Discharge Date: ATTENTION: The Clinical Documentation Specialists (CDI) and [facility] Coding Staff appreciate your assistance in clarifying documentation. Please respond to the clarification below the line at the bottom and electronically sign. The CDI & [facility] Coding staff will review the response and follow-up if needed. Please note: Queries are made part of the Legal Health Record. If you have any questions, please contact the author of this message via ITS. Dr. Greg Sommer MD Renal failure is documented in Cardiology consult 12/19/2018 Cardiology referred query to the Primary Provider. History/Risk Factors: 68-year-old female presents to the ED for fever and generalized weakness. Clinical Indicators: Lab findings: Creatinine 1.27, Bun 18, GFR 43 Repeat Creatine 12/20/2018 Cr 0.62 Vital Signs: 126/72 130 100.2 20 98% ra Treatment: 2.5L 0.9ns iv fluid bolus In your professional opinion, can you please clarify renal failure? * Acute Renal Failure * Chronic Renal Failure * Acute on Chronic Renal Failure * Other, please specify * Unable to determine (Last Revision: July 2017) ___Acute kidney injury due to acute tubular necrosis MTDD
--- NOTE | 2018-12-28 16:29 | P.PN ---
Progress Note - Text Progress Note Date: 12/23/18 REASON FOR FOLLOWUP: 1. Acute sigmoid diverticulitis. 2. Drug rash. INTERVAL HISTORY: The patient remains to be afebrile. The patient is feeling slightly better The patient rash has decreased in intensity, The patient denies having any sores in the mouth and no difficulty breathing. The patient denies nausea, no vomiting, and abdominal pain has resolved. No further vomiting. PHYSICAL EXAMINATION: Blood pressure is 111/67 with a pulse of 58 temperature 98. She is 97% on room air. General description is an elderly female lying in bed in no distress. RESPIRATORY SYSTEM: Unlabored breathing. Clear to auscultation anteriorly. HEART: S1, S2. Regular rate and rhythm. ABDOMEN: Soft. No tenderness. SKIN EXAMINATION: Her rash from the trunk has resolved mostly in the lower extremity now. LABS: Reviewed DIAGNOSTIC IMPRESSION AND PLAN: Patient with acute sigmoid diverticulitis with no perforation in this patient who developed extensive rash that could have been related to the Pepcid, as Azactam is not likely a drug to cause a rash. Both medication has been discontinued and the patient did have improvement in her rash. Patient to continue with Levaquin and Flagyl for her diverticulitis; to continue while monitoring her clinical course closely. Continue with supportive care.
== END 2018-12-24 15:07 | disposition home or self-care (01) | DRG 871 ==
LOC: EC 03:46 → 2SICU 06:23 → 3SCARD 12-20 18:06
PROVIDERS: ADMIT Internal Medicine; ATTEND Internal Medicine
DX: A41.9 Sepsis, unspecified organism (principal); N17.0 Acute kidney failure with tubular necrosis; E27.1 Primary adrenocortical insufficiency; K57.32 Diverticulitis of large intestine without perforation or abscess without bleeding; N39.0 Urinary tract infection, site not specified; I95.9 Hypotension, unspecified; E11.621 Type 2 diabetes mellitus with foot ulcer; L97.519 Non-pressure chronic ulcer of other part of right foot with unspecified severity; E11.42 Type 2 diabetes mellitus with diabetic polyneuropathy; I77.6 Arteritis, unspecified; I34.1 Nonrheumatic mitral (valve) prolapse; B09 Unspecified viral infection characterized by skin and mucous membrane lesions; E03.9 Hypothyroidism, unspecified; I10 Essential (primary) hypertension; J32.9 Chronic sinusitis, unspecified; J45.909 Unspecified asthma, uncomplicated; K21.9 Gastro-esophageal reflux disease without esophagitis; K58.9 Irritable bowel syndrome, unspecified; F32.9 Major depressive disorder, single episode, unspecified; F41.9 Anxiety disorder, unspecified; G89.29 Other chronic pain; M51.36 Other intervertebral disc degeneration, lumbar region; K44.9 Diaphragmatic hernia without obstruction or gangrene; H18.50 Unspecified hereditary corneal dystrophies; M15.9 Polyosteoarthritis, unspecified; R77.9 Abnormality of plasma protein, unspecified; E66.9 Obesity, unspecified; Z68.32 Body mass index [BMI] 32.0-32.9, adult; Z79.1 Long term (current) use of non-steroidal anti-inflammatories (NSAID); Z79.51 Long term (current) use of inhaled steroids; Z79.52 Long term (current) use of systemic steroids; Z79.890 Hormone replacement therapy; Z79.899 Other long term (current) drug therapy; Z88.1 Allergy status to other antibiotic agents; Z88.0 Allergy status to penicillin; Z91.048 Other nonmedicinal substance allergy status; Z96.652 Presence of left artificial knee joint; Z96.1 Presence of intraocular lens; Z90.710 Acquired absence of both cervix and uterus; Z85.828 Personal history of other malignant neoplasm of skin; Z90.49 Acquired absence of other specified parts of digestive tract; Z98.42 Cataract extraction status, left eye; Z98.41 Cataract extraction status, right eye; Z87.440 Personal history of urinary (tract) infections; Z87.01 Personal history of pneumonia (recurrent); Z98.1 Arthrodesis status; Z82.49 Family history of ischemic heart disease and other diseases of the circulatory system; Z83.3 Family history of diabetes mellitus; W18.30XA Fall on same level, unspecified, initial encounter
CPT/HCPCS: 36415; 70450; 71046; 72131; 74176; 80048; 80053; 81001; 82553; 83605; 83735; 84484; 85025; 85027; 85610; 85730; 86038; 86255; 87040; 87086; 87502; 93005; 93306; 94640; 94760; 96365; 96366; 96375; 99291